=== PATIENT | female | born 1955 | race Caucasian/White ===

== ENCOUNTER → 2018-06-07 09:33 | Outpatient (CLI) | payer OTHER, SELFPAY ==
[2018-06-07 09:45] LABS: Mucous, Urine 0 SEEN /hpf (<or=2+); Red Blood Cells-Urine 0 SEEN /hpf (0-5)
[2018-06-07 11:53] LABS: Color, Urine Yellow (Yellow); Glucose, Dipstick Normal (Normal); Ketone-Dipstick Negative (Negative); Leukocyte Esterase-Dipstick 500 /ul (Negative); Nitrite-Dipstick Negative (Negative); Occult Blood-Urine Negative /ul (Negative); Protein-Dipstick Negative (Negative); Urine Bilirubin Dipstick Negative (Negative); Urine Clarity Clear (Clear); Urine Urobilinogen Normal (Normal)
[2018-06-07 11:58] LABS: Bacteria 2+ /hpf (None Seen); Squamous Epithelial Cells - UA 5-10 SEEN /hpf (5-10); White Blood Cells 10-25 SEEN /hpf (0-5)
[2018-06-07 11:59] LABS: Absolute Lymphocyte Count 2.86 X10^3/ul (0.83-4.51); Absolute Neutrophil Count 5.1 X10^3/uL (2.0-7.7); Basophil# 0.03 X10^3/uL; Basophil% 0.3 % (0-1); Calcium Oxalate Crystals Ur 1+ /hpf (<or=2+); Eosinophils% 2.2 % (0-5); Hemoglobin 15.3 g/dl (12.0-15.0); Lymphocyte # 2.86 X10^3/ul (4.0); Lymphocyte % 31.7 % (19-41); Mean Corpuscular Hgb 30.2 pg (27.0-32.0); Mean Corpuscular Volume 88.8 fL (81-99); Mean Platelet Vol. 9.5 fl (6.2-12.0); Monocyte# 0.85 X10^3/uL; Monocyte% 9.4 % (0-10); Neutrophil # 5.07 X10^3/uL (2.7-7.7); Neutrophil % 56.3 % (47-70); Platelet Count 266 K/mm3 (150-450); RBC Distribution Width CV 12.5 % (11.6-14.6); RBC Distribution Width SD 40.4 fl (35.1-43.9); Red Blood Count 5.07 M/mm3 (4.2-5.4); Renal Epithelial Cells 0-5 SEEN /hpf (0-5)
[2018-06-07 12:00] LABS: POSITIVE COUNT NO; POSITIVE DIFFERENTIAL NO; POSITIVE MORPHOLOGY NO
[2018-06-07 12:15] LABS: Microalbumin,Random Urine 11.1 mg/L (NO RANGE EST.)
[2018-06-07 12:23] LABS: ALB/GLOB Ratio 0.8 RATIO (0.9-2.4); AST(SGOT) 47 U/L (15-37); Alanine Aminotransfer ALT/SGPT 38 U/L (13-56); Albumin, Serum 3.7 g/dL (3.2-5.0); Alkaline Phosphatase 111 U/L (45-117); Anion Gap 9 (5-15); BUN 16 mg/dL (7-18); BUN/Creat Ratio 12.8 RATIO (10-20); Calcium,Total 9.4 mg/dL (8.5-10.1); Chloride 106 mmol/L (98-107); Creatinine, Serum 1.25 mg/dL (0.55-1.02); EST Glomerular Filtration Rate 46 mL/min (>60); Est Glom Filt Rate - Afr Amer 56 mL/min (>60); Free T3 3.3 pg/mL (2.18-3.98); Globulin 4.5 g/dL (2.2-4.2); Glucose 91 mg/dL (74-106); Potassium 3.8 mmol/L (3.5-5.1); Protein, Total 8.2 g/dL (6.4-8.2); Sodium Level 141 mmol/L (136-145); T4 Free Direct 0.97 ng/dL (0.76-1.46); Thyroid Stim Hormone (TSH) 2.13 uIU/mL (0.358-3.74)
[2018-06-08 10:08] LABS: Vitamin D,25 Hydroxy 18.7 ng/mL (29.95-100.01)
[2018-06-10 03:06] LABS: CHOLESTEROL TOTAL 201 mg/dL (100-199); HDL-C 53 mg/dL (>39); HDL-P TOTAL 34.5 umol/L (>=30.5); SMALL LDL-P 615 nmol/L (<=527); TRIGLYCERIDES 151 mg/dL (0-149)
[2018-06-10 07:44] LABS: LDL SIZE 21.1 nm (>20.5); LDL-C 118 mg/dL (0-99); LDL-P 1487 nmol/L (<1000); LP-IR SCORE ** 59 (<=45)
== END ==
PROVIDERS: Family Provider Internal Medicine; PCP Internal Medicine; Visit Provider Internal Medicine
DX: E04.1 Nontoxic single thyroid nodule (principal); Z13.21 Encounter for screening for nutritional disorder; R73.02 Impaired glucose tolerance (oral)
CPT/HCPCS: 36415; 80053; 80061; 81001; 82043; 82306; 82570; 83704; 84439; 84443; 84481; 85025

== ENCOUNTER → 2018-06-12 14:19 | Outpatient (CLI) | payer OTHER, SELFPAY ==
--- NOTE | 2018-06-12 14:24 | CT_ITS ---
STUDY: CT CHEST WITHOUT CONTRAST REASON FOR EXAM: Female, 62 years old. Dilatation of the thoracic aorta. 3. Bilateral mastectomy. Family history of breast cancer without personal history. RADIATION DOSAGE (If Supplied By Facility): CTDIvol = ( 14.7 ) mGy, DLP = ( 514.13 ) mGycm TECHNIQUE: Transaxial imaging was performed without the administration of intravenous contrast material. : Sagittal 2-D MPR. Individualized dose optimization techniques were used for this CT. COMPARISON: 06/03/2016 CT chest. 12/13/2013 CTA chest. FINDINGS: Supraclavicular: A low-density oval circumscribed right-sided thyroid nodule has become more conspicuous as compared to imaging of 2013 and should be further characterized with ultrasound. The thyroid gland is enlarged bilaterally with otherwise mildly heterogeneous nodular features suggesting underlying goiter. Thoracic body wall soft tissues: No acute process. Osseous structures: No acute process. Upper abdomen: There is evidence of hepatic steatosis. Otherwise no acute process. Mediastinum: Normal esophagus, no mass or lymphadenopathy. Aorta: Ascending aorta 4.2 cm, proximal arch 3.95 cm. Pulmonary arteries: Nondilated. Heart: No cardiomegaly. Mild coronary calcifications. No pericardial effusion. Minimal aortic valve calcifications. Lungs: Minimal chronic interstitial changes. Tiny ground glass subpleural nodules are present on the left, the largest measuring about 5 mm. Nonspecific. Follow-up is recommended according to the Fleischner Society Criteria. Airways are normal. CT/Chest without Contrast IMPRESSION: No acute cardiopulmonary process. 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 Not substantially changed compared to imaging of 2014. Right thyroid nodule. Ultrasound characterization is recommended. Electronically Signed: Ruddy Lam, at 16:58 EDT Tel , Service support ,
== END ==
PROVIDERS: Family Provider Internal Medicine; PCP Internal Medicine; Visit Provider Internal Medicine
DX: I77.810 Thoracic aortic ectasia (principal)
CPT/HCPCS: 71250

== ENCOUNTER → 2018-11-02 07:23 | Outpatient (CLI) | payer OTHER, SELFPAY ==
[2018-11-02 10:34] LABS: Absolute Neutrophil Count 4.3 X10^3/uL (2.0-7.7); Basophil# 0.04 X10^3/uL; Basophil% 0.4 % (0-1); Eosinophil# 0.31 X10^3/uL; Eosinophils% 3.4 % (0-5); Hematocrit 43.2 % (37-47); Hemoglobin 14.2 g/dl (12.0-15.0); Lymphocyte % 40.3 % (19-41); Mean Corp Hgb Conc 32.9 g/gl (32-36); Mean Corpuscular Hgb 29.7 pg (27.0-32.0); Mean Corpuscular Volume 90.4 fL (81-99); Mean Platelet Vol. 9.5 fl (6.2-12.0); Monocyte# 0.83 X10^3/uL; Neutrophil % 46.8 % (47-70); Platelet Count 265 K/mm3 (150-450); RBC Distribution Width CV 12.5 % (11.6-14.6); Red Blood Count 4.78 M/mm3 (4.2-5.4); White Blood Count 9.2 K/mm3 (4.4-11.0)
[2018-11-02 10:36] LABS: POSITIVE COUNT NO; POSITIVE DIFFERENTIAL NO; POSITIVE MORPHOLOGY NO
[2018-11-02 11:05] LABS: ALB/GLOB Ratio 0.9 RATIO (0.9-2.4); AST(SGOT) 33 U/L (15-37); Alanine Aminotransfer ALT/SGPT 43 U/L (13-56); Albumin, Serum 3.6 g/dL (3.2-5.0); Alkaline Phosphatase 124 U/L (45-117); Anion Gap 10 (5-15); BUN 15 mg/dL (7-18); BUN/Creat Ratio 11.5 RATIO (10-20); Calcium,Total 9.1 mg/dL (8.5-10.1); Chloride 107 mmol/L (98-107); Cholesterol 160 mg/dL (200); EST Glomerular Filtration Rate 44 mL/min (>60); Est Glom Filt Rate - Afr Amer 53 mL/min (>60); Glucose 83 mg/dL (74-106); High Density Lipoprotein 51 mg/dL; Potassium 3.8 mmol/L (3.5-5.1); Protein, Total 7.6 g/dL (6.4-8.2); Sodium Level 143 mmol/L (136-145); Thyroid Stim Hormone (TSH) 1.97 uIU/mL (0.358-3.74); Triglycerides 175 mg/dL; Very Low Density Lipoprotein 35 mg/dL (5-40)
== END ==
PROVIDERS: Family Provider Family Medicine; PCP Family Medicine; Referring Provider Family Medicine; Visit Provider Family Medicine
DX: E04.1 Nontoxic single thyroid nodule (principal); I10 Essential (primary) hypertension; F31.30 Bipolar disorder, current episode depressed, mild or moderate severity, unspecified
CPT/HCPCS: 36415; 80053; 80061; 84443; 85025

== ENCOUNTER → 2018-11-05 12:32 | Outpatient (CLI) | payer OTHER, SELFPAY ==
--- NOTE | 2018-11-05 12:33 | US_ITS ---
HISTORY: nodules TECHNIQUE: Guzmán scale and color doppler imaging was performed of the thyroid gland. COMPARISON: 02/26/2016 and 09/23/2014 FINDINGS: The thyroid gland is multinodular and remains enlarged with measurements approximately as follows Right lobe 5 x 2.8 x 2.8 cm Left lobe 5.3 x 2.8 x 2.3 cm. Thyroid isthmus 0.4 cm The right thyroid lobe shows 3 nodules with the largest nodule, a complex nodule, measuring 2.6 x 1.1 x 1.4 cm within the upper pole. The midpole of the right thyroid lobe shows a hypoechoic nodule with uniform echotexture measuring 2 x 1.4 x 1.8 cm. This nodule is mildly increased in size compared to previous and is the most suspicious nodule based on its echogenicity. FNA biopsy is recommended. The midpole of the left thyroid lobe shows a 0.6 x 0.7 x 0.6 cm complex nodule. US/Thyroid IMPRESSION: 1. Enlarged multinodular thyroid gland. 2. The midpole of the right thyroid lobe shows a hypoechoic, enlarging nodule. FNA percutaneous needle biopsy is recommended to establish histology. at 0740 Reported and signed by: Tanner Cruz MD Electronically Signed: Tanner Cruz, at 7:39 EST Tel , Service support ,
== END ==
PROVIDERS: Family Provider Internal Medicine; PCP Internal Medicine; Referring Provider Family Medicine; Visit Provider Family Medicine
DX: E04.1 Nontoxic single thyroid nodule (principal)
CPT/HCPCS: 76536

== ENCOUNTER → 2018-12-27 10:57 | Outpatient (CLI) | payer OTHER, SELFPAY ==
--- NOTE | 2018-12-27 11:00 | RAD_ITS ---
STUDY: X-RAY - LEFT KNEE REASON FOR EXAM: Pain. TECHNIQUE: 4 view(s) of the knee. COMPARISON: Radiographs 06/29/2017. FINDINGS: There is osteopenia. Normal visualized distal femur. Normal visualized proximal tibia and fibula. Normal proximal tibiofibular articulation. Normal medial femorotibial compartment. Normal lateral femorotibial compartment. Normal patellofemoral articulation. The soft tissue structures are unremarkable. RAD/Knee 4 or More Views IMPRESSION: Osteopenia. Otherwise, unremarkable x-ray examination of the left knee. Electronically Signed: Tyron Rios MD at 15:44 EST Tel , Service support ,
--- NOTE | 2018-12-27 11:00 | RAD_ITS ---
STUDY: X-RAY - RIGHT KNEE REASON FOR EXAM: Chronic knee pain. TECHNIQUE: 4 view(s) of the knee. COMPARISON: Radiographs 06/29/2017. FINDINGS: There is osteopenia. Normal visualized distal femur. Normal visualized proximal tibia and fibula. Normal proximal tibiofibular articulation. Normal medial femorotibial compartment. Normal lateral femorotibial compartment. Normal patellofemoral articulation. There is a small joint effusion. RAD/Knee 4 or More Views IMPRESSION: Small joint effusion. Osteopenia. Electronically Signed: Tyron Rios MD at 15:48 EST Tel , Service support ,
== END ==
PROVIDERS: Family Provider Internal Medicine; PCP Internal Medicine; Referring Provider Physician Assistant; Visit Provider Physician Assistant
DX: M25.561 Pain in right knee (principal); M25.562 Pain in left knee; M25.469 Effusion, unspecified knee
CPT/HCPCS: 73564

== ENCOUNTER → 2019-05-08 | Outpatient (CLI) | payer OTHER, SELFPAY ==
--- NOTE | 2019-05-08 11:12 | US_ITS ---
STUDY: THYROID ULTRASOUND REASON FOR EXAM: Female, 63 years old. TECHNIQUE: Ultrasound evaluation of the thyroid was performed with real-time and static dorsey-scale imaging. COMPARISON: None. FINDINGS: RIGHT LOBE: The right lobe of the thyroid gland measures 5.6 x 3.2 x 2.7 cm. There are 3 nodules seen in the right lobe. 1 heterogeneous slightly border with intranodular flow it measures 2.4 x 1.7 x 1.3 cm. The other one slight and measures 1.6 x 1.7 x 1.4 cm. The third one measures 1.2 x 1.3 x 0.9 cm also solid in texture. In the last 2 no demonstrated there is perinodular Flow. LEFT LOBE: The left lobe of the thyroid gland measures 5.4 x 2.6 x 2.3 cm with heterogeneous and hypoechoic texture. There is small nodule in the midportion of the left lobe measures 0.9 x 0.8 cm which is solid nodule. I do suggest FNA from the nodules on the right side. ISTHMUS: The isthmus measures 0.5 cm . The regional lymph nodes are normal. US/Thyroid IMPRESSION: Enlarged both lobes of the thyroid with the nodules described above. Electronically Signed: Juan Diego Oliver, at 15:35 EDT Tel , Service support ,
== END | disposition home or self-care (01) ==
LOC: US 11:10
PROVIDERS: Family Provider Family Medicine; PCP Family Medicine; Referring Provider Otolaryngology; Visit Provider Otolaryngology
DX: E04.1 Nontoxic single thyroid nodule (principal)
CPT/HCPCS: 76536

== ENCOUNTER 2019-09-12 20:21 | Emergency (ER) | payer OTHER, SELFPAY ==
[2019-09-12 20:23] VITALS: BP 144/68; PULSE 83; RESP 16; TEMP 37.1; O2SAT 98; BMI 30.9
--- NOTE | 2019-09-12 22:02 | CT_ITS ---
STUDY: CT BRAIN WITHOUT CONTRAST REASON FOR EXAM: Female, 63 years old. Weakness RADIATION DOSAGE (If Supplied By Facility): CTDIvol = ( 44.99 ) mGy, DLP = ( 1625.96 ) mGycm TECHNIQUE: Transaxial CT imaging of the brain was performed without administration of intravenous contrast material. Individualized dose optimization techniques were used for this CT. COMPARISON: No relevant priors. FINDINGS: Normal soft tissue structures. Normal calvarium. Slightly prominent size ventricles. Normal extra-axial spaces for the patient's age. Mild white matter microangiopathic ischemic changes of the cerebral hemispheres. Normal basal ganglia and thalami. Normal brainstem. Normal cerebellum. There is no intracranial hemorrhage. There are no findings of an acute ischemic infarction. Normal visualized paranasal sinuses. CT/Brain/Head without Contrast IMPRESSION: No acute intracranial pathology of the brain. Electronically Signed: Isiah Bowman DO at 23:02 EDT Tel [phone], Service support ,
[2019-09-12 22:35] LABS: Bacteria 0 SEEN /hpf (None Seen); Mucous, Urine 0 SEEN /hpf (<or=2+)
[2019-09-12 22:36] LABS: Color, Urine Yellow (Yellow); Glucose, Dipstick Normal (Normal); Ketone-Dipstick Negative (Negative); Leukocyte Esterase-Dipstick 500 /ul (Negative); Nitrite-Dipstick Negative (Negative); Occult Blood-Urine 25 /ul (Negative); Protein-Dipstick 30 mg/dl (Negative); Urine Bilirubin Dipstick Negative (Negative); Urine Clarity Cloudy (Clear); Urine Urobilinogen Normal (Normal)
[2019-09-12 22:36] LABS: Absolute Lymphocyte Count 2.98 X10^3/uL (0.83-4.51); Absolute Neutrophil Count 5.5 X10^3/uL (2.0-7.7); Basophil# 0.07 X10^3/uL; Basophil% 0.7 % (0-1); Eosinophil# 0.17 X10^3/uL; Eosinophils% 1.8 % (0-5); Hematocrit 45.9 % (37-47); Hemoglobin 14.9 g/dL (12.0-15.0); Lymphocyte # 2.98 X10^3/ul (4.0); Lymphocyte % 31.5 % (19-41); Mean Corp Hgb Conc 32.5 g/dL (32-36); Mean Corpuscular Hgb 29.4 pg (27.0-32.0); Mean Corpuscular Volume 90.7 fL (81-99); Mean Platelet Vol. 9.3 fl (6.2-12.0); Monocyte# 0.69 X10^3/uL; Monocyte% 7.3 % (0-10); NRBC Flagged by Analyzer 0 % (0-5); Neutrophil # 5.51 X10^3/uL (2.7-7.7); Neutrophil % 58.4 % (47-70); Platelet Count 279 K/mm3 (150-450); RBC Distribution Width SD 39.8 fl (35.1-43.9); Red Blood Count 5.06 M/mm3 (4.2-5.4); White Blood Count 9.5 K/mm3 (4.4-11.0)
[2019-09-12 22:50] LABS: Red Blood Cells-Urine 0-5 SEEN /hpf (0-5); White Blood Cells >100 SEEN /hpf (0-5)
[2019-09-12 22:51] LABS: Renal Epithelial Cells 0-5 SEEN /hpf (0-5); Squamous Epithelial Cells - UA 0-5 SEEN /hpf (5-10)
[2019-09-12 22:56] LABS: ALB/GLOB Ratio 0.8 RATIO (0.9-2.4); AST(SGOT) 56 U/L (15-37); Alanine Aminotransfer ALT/SGPT 39 U/L (13-56); Albumin, Serum 3.8 g/dL (3.2-5.0); Alkaline Phosphatase 111 U/L (45-117); Anion Gap 8 (5-15); BUN 8 mg/dL (7-18); BUN/Creat Ratio 6.9 RATIO (10-20); Calcium,Total 9.9 mg/dL (8.5-10.1); Chloride 105 mmol/L (98-107); Creatinine, Serum 1.16 mg/dL (0.55-1.02); EST Glomerular Filtration Rate 50 mL/min (>60); Est Glom Filt Rate - Afr Amer 61 mL/min (>60); Estimated Creatinine Clearance 42.87 ml/min; Globulin 4.5 g/dL (2.2-4.2); Glucose 91 mg/dL (74-106); Potassium 3.9 mmol/L (3.5-5.1); Protein, Total 8.3 g/dL (6.4-8.2); Sodium Level 140 mmol/L (136-145)
--- NOTE | 2019-09-12 23:46 | ED.RN ---
PT AMBULATES TWICE TO BATHROOM WITH SPOUSE AND 1 RN, UNSTEADY GAIT NOTED.
--- NOTE | 2019-09-12 23:52 | ED.VISSUMM ---
- ER Visit Summary Date of Service: 09/12/19 Chief Complaint: Fall History of Present Illness: The patient is a 63 F who presents with a fall that occurred today. Patient states she stood up and her legs gave out on her. Patient states she fell forward. Patient states she feels like she is paralyzed from the chest down. Patient states she is having some cramping in her legs. Patient states that she has tremors in her lower extremities. Patient admits to some numbness in her lower extremities. Patient states she was able to get up after the fall and hold onto her and was able to ambulate to the car. states that the patient was started on a new medication recently for her tremors. noted that in the side effect profile it may cause weakness. Physical Examination: Vital signs are stable. Patient is afebrile. Patient is in no acute distress. Cranial nerves II through XII are intact. Strength is 5/5 bilaterally in the upper extremities. There is poor effort with hip flexion and knee extension in the lower extremities. Patient is able to plantarflex and dorsiflex. There are no sensory deficits noted. Oral mucosa is pink and moist. Neck is supple. Trachea is midline. There is no JVD noted. Heart was regular rate and rhythm. Lungs are clear and equal bilaterally. Abdomen is soft and nontender. Test Results: CT scan of the brain was obtained and was negative. CBC was normal. Creatinine was slightly elevated at 1.16. Urinalysis shows leukocyte esterase of 500 with greater than 100 white blood cells. Emergency Department Course and Treatment: Patient was able to ambulate to the bathroom here in the emergency department. Patient was given a dose of Bactrim here. Patient was given a prescription for Bactrim. Patient was advised that the weakness may be a side effect of her medication as well. Patient was instructed to follow-up with her primary care physician in 3 to 5 days for further evaluation. Patient and her understood and were agreeable with the plan. All questions were answered. Disposition: Discharge home Impression: 1. Urinary tract infection 2. Lower extremity weakness This note was generated with [employer] software. It may contain incorrect words, spelling, and punctuation that were not noted in review of the chart prior to signing ED Disposition - Plan for ED Patient: Disposition: Home or Assisted Living Diagnosis: Urinary tract infection Instructions: Bladder Infection, Female (Adult) Prescriptions: Smz/Tmp Ds [Bactrim Ds] 1 tab PO BID #6 tab Prescription Printed Referrals: Dorene Whittaker MD [Primary Care Provider] - 3-5 Days Additional Instructions: Use your walker to help you get around. Take your antibiotic as prescribed until gone.
[2019-09-13 00:27] VITALS: BP 140/86; PULSE 73; RESP 16; O2SAT 97
[2019-09-13] MEDS: Smz/Tmp Ds Tablet 1 TABLET PO (00:29)
== END 2019-09-13 00:38 | disposition home or self-care (01) ==
PROVIDERS: Emergency Provider Emergency Medicine; Family Provider Family Medicine; PCP Family Medicine
DX: N39.0 Urinary tract infection, site not specified (principal); R29.898 Other symptoms and signs involving the musculoskeletal system; H53.8 Other visual disturbances; R06.00 Dyspnea, unspecified; M54.2 Cervicalgia; R51 Headache; R20.2 Paresthesia of skin; W19.XXXA Unspecified fall, initial encounter; Y93.9 Activity, unspecified; Y92.9 Unspecified place or not applicable; E66.9 Obesity, unspecified; F32.9 Major depressive disorder, single episode, unspecified; M79.7 Fibromyalgia; Z79.899 Other long term (current) drug therapy
CPT/HCPCS: 70450; 80053; 81001; 85025; 99283; A4216

== ENCOUNTER → 2019-10-17 07:58 | Outpatient (CLI) | payer OTHER, SELFPAY ==
--- NOTE | 2019-10-17 08:36 | RAD_ITS ---
STUDY: X-RAY CHEST REASON FOR EXAM: Female, 64 years old. Cough TECHNIQUE: Two view of the chest were performed COMPARISON: 12 June 2018 FINDINGS: Lungs are clear. There is no pneumothorax, pulmonary edema, pleural effusions or cardiomegaly. Osseous structures are intact. There is no gas under the diaphragms. [ There is lower cervical ACDF.] RAD/Chest PA and Lateral IMPRESSION: 1. No acute cardiorespiratory disease. [ ] Electronically Signed: Merlin Ramos, at 18:56 EST Tel , Service support ,
[2019-10-17 10:24] LABS: Absolute Lymphocyte Count 3.46 X10^3/uL (0.83-4.51); Absolute Neutrophil Count 5.6 X10^3/uL (2.0-7.7); Basophil# 0.05 X10^3/uL; Basophil% 0.5 % (0-1); Eosinophil# 0.36 X10^3/uL; Eosinophils% 3.5 % (0-5); Hematocrit 44.2 % (37-47); Hemoglobin 14.3 g/dL (12.0-15.0); Lymphocyte # 3.46 X10^3/ul (4.0); Lymphocyte % 33.7 % (19-41); Mean Corp Hgb Conc 32.4 g/dL (32-36); Mean Corpuscular Hgb 29.1 pg (27.0-32.0); Mean Platelet Vol. 9.5 fl (6.2-12.0); Monocyte# 0.73 X10^3/uL; Monocyte% 7.1 % (0-10); NRBC Flagged by Analyzer 0 % (0-5); Neutrophil # 5.63 X10^3/uL (2.7-7.7); Neutrophil % 54.8 % (47-70); Platelet Count 274 K/mm3 (150-450); RBC Distribution Width CV 12.1 % (11.6-14.6); RBC Distribution Width SD 39.8 fl (35.1-43.9); Red Blood Count 4.91 M/mm3 (4.2-5.4); White Blood Count 10.3 K/mm3 (4.4-11.0)
[2019-10-17 10:42] LABS: Hemoglobin A1c 5.5 % (4.2-6.3)
[2019-10-17 11:02] LABS: ALB/GLOB Ratio 0.8 RATIO (0.9-2.4); AST(SGOT) 38 U/L (15-37); Alanine Aminotransfer ALT/SGPT 35 U/L (13-56); Albumin, Serum 3.6 g/dL (3.2-5.0); Alkaline Phosphatase 114 U/L (45-117); Anion Gap 7 (5-15); BUN 11 mg/dL (7-18); BUN/Creat Ratio 9.6 RATIO (10-20); Calcium,Total 9.5 mg/dL (8.5-10.1); Chloride 108 mmol/L (98-107); Cholesterol 159 mg/dL (200); Creatinine, Serum 1.14 mg/dL (0.55-1.02); EST Glomerular Filtration Rate 51 mL/min (>60); Est Glom Filt Rate - Afr Amer 62 mL/min (>60); Globulin 4.5 g/dL (2.2-4.2); Glucose 100 mg/dL (74-106); High Density Lipoprotein 46 mg/dL; Potassium 3.8 mmol/L (3.5-5.1); Protein, Total 8.1 g/dL (6.4-8.2); Sodium Level 141 mmol/L (136-145); Thyroid Stim Hormone (TSH) 2.09 uIU/mL (0.358-3.74); Triglycerides 111 mg/dL; Very Low Density Lipoprotein 22 mg/dL (5-40)
== END ==
PROVIDERS: Family Provider Family Medicine; PCP Family Medicine; Referring Provider Family Medicine; Visit Provider Family Medicine
DX: Z00.01 Encounter for general adult medical examination with abnormal findings (principal); R05 Cough
CPT/HCPCS: 36415; 71046; 80053; 80061; 83036; 84443; 85025

== ENCOUNTER → 2019-11-08 09:41 | Outpatient (CLI) | payer OTHER, SELFPAY ==
[2019-11-12 03:07] LABS: Age Gdln ACOG Testing 30-65 (.)
[2019-11-12 15:46] LABS: HPV APTIMA, High Risk Negative (Negative); HPV Reflexed? YES, CHARGE PATIENT
== END ==
PROVIDERS: Family Provider Family Medicine; PCP Family Medicine; Visit Provider Family Medicine
DX: Z12.4 Encounter for screening for malignant neoplasm of cervix (principal)
CPT/HCPCS: 87624; 88175; G0145

== ENCOUNTER → 2020-05-12 16:16 | Outpatient (CLI) | payer OTHER, SELFPAY ==
--- NOTE | 2020-05-12 16:20 | US_ITS ---
STUDY: THYROID ULTRASOUND REASON FOR EXAM: Female, 64 years old. NODULES TECHNIQUE: Ultrasound evaluation of the thyroid was performed with real-time and static dorsey-scale imaging. COMPARISON: May 08, 2019 and September 23, 2014. FINDINGS: RIGHT LOBE: The right lobe of the thyroid gland measures 5.8 x 3.1 x 2.7 cm. There is a homogeneous echotexture. There are 3 nodules, mildly increased in size compared to prior exams, measuring 2.5 x 1.8 and 2.2 x 2.1 and 2.1 x 1.9 cm . LEFT LOBE: The left lobe of the thyroid gland measures 5.8 x 2.6 x 2.4 cm. There is a homogeneous echotexture. There is 0.8 x 0.7 cm nodule. ISTHMUS: The isthmus measures 0.7 cm. The regional lymph nodes are normal. US/Thyroid IMPRESSION: Multinodular goiter, with increased size of right-sided nodules. Electronically Signed: David Carter MD at 17:40 EDT , Service support ,
== END ==
PROVIDERS: PCP Family Medicine; Referring Provider Otolaryngology; Visit Provider Otolaryngology
DX: E04.1 Nontoxic single thyroid nodule (principal)
CPT/HCPCS: 76536

== ENCOUNTER → 2020-06-01 13:08 | Outpatient (CLI) | payer OTHER, SELFPAY ==
--- NOTE | 2020-06-01 13:10 | CT_ITS ---
STUDY: CT BRAIN WITHOUT CONTRAST REASON FOR EXAM: Female, 64 years old. PT STATED TREMORS, UNCONTROLLED SHAKING, MEMORY LOSS RADIATION DOSAGE (If Supplied By Facility): CTDIvol = ( 44.99 ) mGy, DLP = ( 762.36 ) mGycm TECHNIQUE: Transaxial CT imaging of the brain was performed without administration of intravenous contrast material. Individualized dose optimization techniques were used for this CT. COMPARISON: 09/12/2019 FINDINGS: Normal soft tissue structures. Normal calvarium. Stable prominent ventricular size. Normal white matter tracts of the cerebral hemispheres. Normal basal ganglia and thalami. Normal brainstem. Normal cerebellum. There is no intracranial hemorrhage. There are no findings of an acute ischemic infarction. Normal visualized paranasal sinuses. CT/Brain/Head without Contrast IMPRESSION: Chronic involutional changes of the brain. No acute hemorrhage or significant interval change Electronically Signed: Mathew Salas MD at 13:47 EDT , Service support ,
== END ==
PROVIDERS: PCP Family Medicine; Referring Provider Psychiatry & Neurology Neurology; Visit Provider Psychiatry & Neurology Neurology
DX: R41.3 Other amnesia (principal)
CPT/HCPCS: 70450

== ENCOUNTER 2020-07-13 14:49 | Inpatient (IN) | payer OTHER, SELFPAY ==
[2020-07-13] VITALS (29 sets, daily range): BP systolic 123–175; BP diastolic 71–108; PULSE 67–91; RESP 12–20; TEMP 36.8–37.1; O2SAT 92–100; BMI 32.2; BMI 31.6; BMI 31.7
--- NOTE | 2020-07-13 14:56 | EKG12_ITS ---
Test Reason : STROKE Blood Pressure : / mmHG Vent. Rate : 081 BPM Atrial Rate : 081 BPM P-R Int : 230 ms QRS Dur : 080 ms QT Int : 376 ms P-R-T Axes : 032 011 006 degrees QTc Int : 436 ms Sinus rhythm with 1st degree A-V block Inferior infarct , age undetermined, cannot be excluded Abnormal ECG Confirmed by CARLOS KATZ, VALENTINE ([id number]), editorial director KAE SANCHEZ ([id number]) on 07/16/2020 11:19:32 AM Referred By: MARIPOSA Confirmed By:VALENTINE GONZALEZ MD
--- NOTE | 2020-07-13 14:56 | CT_ITS ---
STUDY: CT BRAIN WITHOUT CONTRAST REASON FOR EXAM: Female, 64 years old. STROKE RADIATION DOSAGE (If Supplied By Facility): CTDIvol = ( 44.99 ) mGy, DLP = ( 796.11 ) mGycm TECHNIQUE: Transaxial CT imaging of the brain was performed without administration of intravenous contrast material. Individualized dose optimization techniques were used for this CT. COMPARISON: Comparison is made with prior study dated 06/01/2020. FINDINGS: Normal soft tissue structures. There is hyperostosis frontalis internus. There is mild cerebral atrophy with widening of the extra-axial spaces and ventricular dilatation. Normal white matter tracts of the cerebral hemispheres. Normal basal ganglia and thalami. Normal brainstem. Normal cerebellum. There is no intracranial hemorrhage. There are no findings of an acute ischemic infarction. Atherosclerotic plaque formation of the cavernous portions of the internal carotid arteries bilaterally. Normal visualized paranasal sinuses. CT/Brain/Head without Contrast IMPRESSION: Chronic involutional changes of the brain. N.B. : The above information has been verbally conveyed by Eros Chase to Olivre Quintanilla on 07/13/2020 15:14:02 (ET). Electronically Signed: Eros Chase, at 15:15 EDT , Service support ,
--- NOTE | 2020-07-13 14:57 | CT_ITS ---
STUDY: CTA HEAD AND NECK WITH CONTRAST REASON FOR EXAM: Female, 64 years old. CVA RADIATION DOSAGE (If Supplied By Facility): CTDIvol = ( 21.93 ) mGy, DLP = ( 703.80 ) mGycm TECHNIQUE: CT angiography was performed with a multi-detector CT scanner. Data acquisition was obtained from the skull base through the vertex following intravenous administration of IV 100mL [id number]-[id number]. MIP images were reconstructed from the axial data set. Post-processing of the angiographic images was performed, with multiplanar reformation and 3D reconstruction. Individualized dose optimization techniques were used for this CT. COMPARISON: No relevant priors. FINDINGS: Normal bilateral petrous carotid arteries. Normal right cavernous carotid artery with a normal supraclinoid bifurcation. Normal left cavernous carotid artery with a normal supraclinoid bifurcation. There is hypoplastic development of the right A1 segment of the anterior cerebral arteries with an atretic but intact artery. Normal left A1 segments of the anterior cerebral artery. Normal intact anterior communicating artery (ACOM). Normal bilateral A2 segments of the anterior cerebral arteries. Normal right M1 and M2 segments of the middle cerebral arteries, with a normal M1 bifurcation. Normal left M1 and M2 segments of the middle cerebral arteries, with a normal M1 bifurcation. Normal right posterior communicating artery (PCOM). Normal left posterior communicating artery (PCOM). Normal bilateral vertebral arteries. Normal basilar artery with a normal basilar bifurcation. The visualized bilateral superior cerebellar (SCA) arteries are normal. Normal bilateral P1, P2 and visualized P3 segments of the posterior cerebral arteries. There is no demonstrated aneurysm of the three affiliated of Kelly. There is no demonstrated abnormality of the visualized brain. Diffuse enlargement of both lobes of the thyroid gland with heterogeneous dense nodule in the right lobe. AORTIC ARCH: There is atherosclerotic calcific plaque formation of the aortic arch and great vessels arising from the aortic arch, without a hemodynamically significant stenosis. There is a normal origin of the brachiocephalic, left common carotid, and left subclavian arteries. RIGHT CAROTID ARTERIES: Normal right common carotid artery (CCA). Normal right common carotid bulb. Normal origin of the right internal carotid (ICA) artery without a hemodynamically significant stenosis. Normal visualized cervical portion of the right internal carotid artery. Normal origin of the right external carotid artery (ECA). LEFT CAROTID ARTERIES: Normal left common carotid artery (CCA). Normal left common carotid bulb. Normal origin of the left internal carotid (ICA) artery without a hemodynamically significant stenosis. Normal visualized cervical portion of the left internal carotid artery. Normal origin of the left external carotid artery (ECA). VERTEBRAL ARTERIES: Normal bilateral vertebral arteries. CT/CTA Head AND Neck W/ Contrast IMPRESSION: No significant stenosis is seen. 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 Electronically Signed: Eros Chase, at 15:24 EDT , Service support ,
[2020-07-13 15:01] LABS: Bedside Glucose 125 mg/dL (70-110)
--- NOTE | 2020-07-13 15:02 | CM.ED ---
Social Work Responding to stroke alert. Patient spouse, Filemon present. Support provided. Will continue to follow as needed. Marques Thomas MSW, [facility]
--- NOTE | 2020-07-13 15:15 | ED.VIS.STROK ---
History of Present Illness Chief Complaint: Neuro S/Sx Informant: Patient, Family Onset: Hours Context: Sudden Onset Timing: Continuous Quality and Location: Left Arm Parasthesia, Left Arm Weakness, Left Leg Weakness, Slurred Speech, Difficulty with Ambulation Onset: 12 noon Current Severity: Moderate Maximum Severity: Moderate Worsened by: Nothing Relieved by: Nothing Associated Symptoms: Negative for: Headache, Nausea, Vomiting, Chest Pain Narrative: Patient is 64-year-old woman with history of hypertension who presents with strokelike symptoms that started at 12 noon. Patient symptoms are on the left side. She also reports altered vision. Prior similar symptoms: No Recent Illness/Hospitalization: No - Past Medical History (1) Fibromyalgia Status: Chronic (2) Hyperlipidemia Status: Chronic (3) Hypertension Status: Chronic Past Medical History - Allergies and Home Meds Allergies/Adverse Reactions: Allergies buprenorphine HCl [From Suboxone] Allergy (Verified 07/13/20 15:13) Anaphylaxis erythromycin base [Erythromycin Base] Allergy (Verified 07/13/20 15:13) Other naloxone HCl [From Suboxone] Allergy (Verified 07/13/20 15:13) Anaphylaxis Primary Care Physician: Dorene Whittaker MD [Primary Care Provider] - Prior records reviewed: Yes Surgical History: mastectomy, - - Neck surgery. Lives: Spouse/ Significant Other Smoking Status: Never smoker Alcohol: None Drugs: None Review of Systems General: Denies: Chills, Fever, Malaise Eyes: Reports: Visual changes - bilaterally, - - Partial loss of vision Cardiovascular: Denies: Chest pain, Palpitations Respiratory: Denies: Dyspnea, Cough, Dyspnea on exertion Gastrointestinal: Denies: Abdominal pain, Nausea, Vomiting, Diarrhea Genitourinary: Denies: Dysuria, Hematuria Musculoskeletal: Denies: Myalgias, Arthralgias, Neck pain, Back pain Skin: Denies: Rash, Wounds Neurological: Reports: Weakness, Parasthesia, Numbness. Denies: Headache Hematologic: Denies: Easy bruising, Easy bleeding Allergy: Denies: Uticaria, Swelling of the mouth STROKE Vital Signs/Narrative: Vital Signs Temp Pulse Resp BP Pulse Ox 07/13/20 14:56 98.4 F 79 18 143/108 H 98 Inital Vital Signs reviewed: Yes - NIHSS Initial 1a Level of Consciousness: 0 1b LOC Questions (Score 2 if aphasic/stupor): 0 1c LOC Commands (Only score 1st attempt): 0 2 Best Gaze (If aphasic, use reflexive mvmts.): 0 3 Visual: 2 4 Facial Palsy: 1 5 Motor Arm Right (UN = amputation/fusion): 0 5 Motor Arm Left: 3 6 Motor Leg Right: 0 6 Motor Leg Left: 1 7 Limb ataxia (Only + if out of proportion): 0 8 Sensory (Aphasia/stupor=0 or 1, coma=2): 1 9 Best Language: 0 10 Dysarthria (mute, coma=2, intubated=UN): 1 11 Extinction and Inattention (only scored if +): 0 Total Score: 9 Extremities: Nontender, No edema Skin: Normal color, No rash Neurological: Alert, Oriented x3. Negative for: Cranial nerves II-XII grossly intact, Normal Strength, Normal Sensation, Normal Gait Psychological: Normal affect Diagnostic/Tx/Re-eval Impressions Brain CT 07/13/20 14:56 IMPRESSION: Chronic involutional changes of the brain. N.B. : The above information has been verbally conveyed by Eros Chase to [facility] on 07/13/2020 15:14:02 (ET). Electronically Signed: Eros Chase, at 15:15 EDT , Service support , ADDENDUM: 07/13/20 1522 IMPRESSION: Chronic involutional changes of the brain. N.B. : The above information has been verbally conveyed by Eros Chase to [facility] on 07/13/2020 15:14:02 (ET). Electronically Signed: Eros Chase, at 15:15 EDT , Service support , Head/Neck CTA 07/13/20 14:57 IMPRESSION: No significant stenosis is seen. 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 Electronically Signed: Eros Chase at 15:24 EDT , Service support , 07/13/20 14:56 Brain/Head without Contrast [CT] Stat Chest 1 View [RAD] Stat 07/13/20 14:57 CTA Head AND Neck W/ Contrast [CT] Stat Laboratory Results 07/13/20 07/13/20 14:55 15:15 WBC 8.4 RBC 4.13 L Hgb 12.3 Hct 37.6 MCV 91.0 MCH 29.8 MCHC 32.7 RDW Std Deviation 41.6 RDW Coeff of Mckay 12.6 Plt Count 208 MPV 9.3 Immature Gran % (Auto) 0.400 Neut % (Auto) 58.1 Lymph % (Auto) 29.2 Shoshone % (Auto) 8.4 Eos % (Auto) 3.5 Baso % (Auto) 0.4 Absolute Neuts (auto) 4.9 Absolute Lymphs (auto) 2.45 Nucleated RBC % 0 POC Glucose 125 H The neurologist from [facility] recommended TPA. Patient was informed of risk benefits. tPA was ordered. Since there is no evidence of clot hospitalist was paged for admission to ICU - Medical Decision Making Stroke Team Activated: Yes Reviewed Inclusion/Exclusion criteria: Yes Was Patient considered for Endovascular Intervention?: No IV Alteplase (t-PA) Administered: Yes No contraindications for IV Alteplase (t-PA) administration.: Yes - No contraindications Alteplase (t-PA) risks, benefits, alternative discussed: Yes Not given: Patient refusal: No - Patient consented Presents with strokelike symptoms that started approximately 3 hours prior to arrival. Stroke order set with CT a of the head neck were initially ordered. Patient has no contraindication to thrombolytics. Critical care time (excluding procedures): 30-74 minutes - Critical care time 33 minutes: included history, physical examination, discussion with consultants, review of criteria for TPA, explaining risk benefits to family, discussion with hospitalist for admission ED Disposition - Plan for ED Patient: Disposition: Acute Care Hospital [facility] Diagnosis: Acute ischemic stroke Referrals: Dorene Whittaker MD [Primary Care Provider] -
[2020-07-13 15:23] LABS: Absolute Lymphocyte Count 2.45 X10^3/uL (0.83-4.51); Absolute Neutrophil Count 4.9 X10^3/uL (2.0-7.7); Basophil# 0.03 X10^3/uL; Basophil% 0.4 % (0-1); Eosinophil# 0.29 X10^3/uL; Eosinophils% 3.5 % (0-5); Hematocrit 37.6 % (37-47); Hemoglobin 12.3 g/dL (12.0-15.0); Lymphocyte # 2.45 X10^3/ul (4.0); Lymphocyte % 29.2 % (19-41); Mean Corp Hgb Conc 32.7 g/dL (32-36); Mean Corpuscular Hgb 29.8 pg (27.0-32.0); Mean Platelet Vol. 9.3 fl (6.2-12.0); Monocyte% 8.4 % (0-10); NRBC Flagged by Analyzer 0 % (0-5); Neutrophil # 4.88 X10^3/uL (2.7-7.7); Neutrophil % 58.1 % (47-70); Platelet Count 208 K/mm3 (150-450); RBC Distribution Width CV 12.6 % (11.6-14.6); RBC Distribution Width SD 41.6 fl (35.1-43.9); Red Blood Count 4.13 M/mm3 (4.2-5.4); White Blood Count 8.4 K/mm3 (4.4-11.0)
[2020-07-13 15:35] LABS: International Normalized Ratio 1.1
[2020-07-13 15:36] LABS: Partial Thromboplast Time 27.4 Seconds (24.1-36.2)
--- NOTE | 2020-07-13 15:38 | CHAPLAIN ---
Type of Pastoral Visit ___ Initial Visit ___ Follow-up Visit ___ On-call Visit ___ General Patient Visit ___ Spiritual Assessment ___ Family Conference ___ Bereavement _x__ Rapid Response ___ Code Blue ___ Other (describe below) Pastoral Care Referral From ___ Patient ___ Family ___ Nurse ___ Physician ___ Spearer ___ Project Superintendent _x__ Other (describe below) Sacrament/Intervention ___ Active listening ___ Anointing ___ Yarsani ___ Bereavement ___ Communion ___ Janine exploration ___ ___ Life review ___ Prayer ___ Reconciliation ___ Sacrament of Sick _x__ Supportive presence ___ Wedding _x_ Other (describe below) Pastoral Comments met with spouse to offer support as pt was taken for testing; spouse appears appropriate and able to respond to event; will return to check on situation;
[2020-07-13 15:52] LABS: Anion Gap 4 (5-15); BUN 10 mg/dL (7-18); BUN/Creat Ratio 10.1 RATIO (10-20); Calcium,Total 8.6 mg/dL (8.5-10.1); Chloride 104 mmol/L (98-107); Creatinine, Serum 0.99 mg/dL (0.55-1.02); EST Glomerular Filtration Rate 60 mL/min (>60); Est Glom Filt Rate - Afr Amer 73 mL/min (>60); Estimated Creatinine Clearance 49.57 ml/min; Glucose 115 mg/dL (74-106); Potassium 3.8 mmol/L (3.5-5.1); Sodium Level 137 mmol/L (136-145)
[2020-07-13] MEDS: 0.9% Normal Saline 1,000 ML 100 ML IV (15:56)
--- NOTE | 2020-07-13 16:00 | RAD_ITS ---
STUDY: X-RAY CHEST REASON FOR EXAM: Female, 64 years old. stroke protocol TECHNIQUE: Single AP portable view of the chest. COMPARISON: October 17, 2019 FINDINGS: There are monitoring devices. The lungs are clear and expanded. There is no demonstrated pleural abnormality. There is borderline cardiomegaly. Normal mediastinum and tomi. Normal visualized pulmonary arteries. Normal visualized aortic arch and descending thoracic aorta. There is demineralization of the osseous structures. There are degenerative changes of the thoracic spine. There is postoperative change of the cervical spine. Normal visualized ribs, clavicles, and shoulders. There is no demonstrated abnormality of the visualized soft tissue structures of the upper abdomen. RAD/Chest 1 View IMPRESSION: Degenerative changes, as described above. No demonstrated acute cardiopulmonary process. Electronically Signed: David Carter MD at 16:16 EDT , Service support ,
--- NOTE | 2020-07-13 16:05 | HP.PCM_ITS ---
Problem List (1) Acute ischemic stroke Status: Acute (2) Fibromyalgia Status: Chronic (3) Atypical chest pain Status: Acute (4) Anxiety Status: Chronic (5) Chronic back pain Status: Chronic (6) Hyperlipidemia Status: Chronic (7) Hypertension Status: Chronic History of Present Illness Date of Admission: 07/13/20 Chief Complaint: dysarthria. left sided weakness. The patient is a 64 year old F who was in normal state of health and then today around noon, experienced dysarthria as well as left-sided weakness. Presented to the emergency room and was evaluated. Patient was evaluated by the [facility] stroke team and recommended TPA, to which patient is receiving at this time. Patient has never had a stroke previously. [] Past Medical History Past Medical History (Chronic Problems): Chronic Problems Fibromyalgia (Chronic) Anxiety (Chronic) Chronic back pain (Chronic) Hyperlipidemia (Chronic) Hypertension (Chronic) Allergies buprenorphine HCl [From Suboxone] Allergy (Verified 07/13/20 15:13) Anaphylaxis erythromycin base [Erythromycin Base] Allergy (Verified 07/13/20 15:13) Other naloxone HCl [From Suboxone] Allergy (Verified 07/13/20 15:13) Anaphylaxis Home Medications: Ambulatory Orders Medication Instructions Recorded Clonazepam [Klonopin] 0.5 mg PO BID 12/13/13 Lamotrigine [Lamictal] 150 mg PO DINNER 12/13/13 Lamotrigine [Lamictal] 200 mg PO DAILY 12/13/13 Nebivolol HCl [Bystolic (Beta 5 mg PO DAILY 12/13/13 Mac)] Orphenadrine [Norflex] 100 mg ORAL QHS 12/13/13 Selenium Sulfide 180 ml TP PRN 12/13/13 Simvastatin [Zocor] 40 mg PO QHS 12/13/13 buPROPion SR [Wellbutrin SR (150mg 150 mg PO BID 12/13/13 tablets)] Clonazepam [Klonopin] 1 mg PO QHS 04/01/14 Smz/Tmp Ds [Bactrim Ds] 1 tab PO BID #6 tab 09/12/19 Surgical History: mastectomy, - - Neck surgery. Psychiatric History: Anxiety OTOLARYNGOLOGIST History: No pertinent OTOLARYNGOLOGIST history Lives: Spouse/ Significant Other Smoking Status: Never smoker Alcohol: None Drugs: None - *Family History Maternal History Items: - - no CVA Review of Systems Constitutional: Denies: Anorexia, Chills, Fever Eyes: Denies: Blurred vision, Drainage HEENT: Denies: Head Aches, Sinus Congestion, Sinus Drainage Cardiovascular: Denies: Chest Pain, Palpitations Respiratory: Denies: Cough, Shortness of breath at rest, Sputum production Gastrointestinal: Denies: Abdominal Pain, Nausea, Vomiting Genitourinary: Denies: Dysuria Musculoskeletal: Denies: Joint Pain, Joint Tenderness Skin: Denies: Rash, Wounds Neurological: Reports: Blurred vision, Focal weakness. Denies: Double vision Psychiatric: Denies: Anxiety, Depression Hematologic/ Lymphatic: Denies: Easy Bruising, Easy Bleeding, Hx of blood clot Comment: All review of systems were negative except as mentioned above in the history of present illness and the other review of systems. VTE Information - Inpt Only VTE Present on Admission: No VTE Mechan Device Prophylaxis: None VTE Pharm Prophylaxis ordered?: No Reason prophylaxis not ordered:: Medical Contraindication Patient Problems: Active and Suspected Problems Acute ischemic stroke (Acute) - Physical Exam Vitals/I&O's: Vital Signs Temp Pulse Resp BP Pulse Ox 37.1 C 83 18 161/85 H 95 07/13/20 15:45 07/13/20 15:45 07/13/20 15:50 07/13/20 15:45 07/13/20 15:45 Oxygen Delivery Method Room Air Weight: 85.2 kg Body Mass Index (BMI) 32.2 Finger Stick Blood Glucose 125 General: Alert, Oriented x3, Cooperative HEENT: Atraumatic, PERRLA, EOMI, - - Left facial droop Oral: Moist Mucosa, No Gingival or Mucosal Lesions/ Ulcerations Neck: Negative Carotid Bruits, No Nodes, Thyroid Normal Size and Texture Lungs: Clear to auscultation, Normal air movement Cardiovascular: Regular rate, No murmurs Abdomen: Bowel Sounds Present, Soft, Non Tender Extremities: No edema, Capillary Refill Less than 3 Seconds Skin: No rashes, No breakdown Musculoskeletal: No Tenderness to Palpation of Joints or Extremities Neurological: - - Muscle strength 4 out of 5 in the right upper and right lower extremity. Muscle strength 1 out of 5 in the left upper extremity. Sensation intact on the right side but diminished on the left. Psych/Mental Status: Appropriate, Anxious - Tearful Laboratory Results 07/13/20 14:55: POC Glucose 125 H 07/13/20 15:15: WBC 8.4, RBC 4.13 L, Hgb 12.3, Hct 37.6, MCV 91.0, MCH 29.8, MCHC 32.7, RDW Std Deviation 41.6, RDW Coeff of Mckay 12.6, Plt Count 208, MPV 9.3, Immature Gran % (Auto) 0.400, Neut % (Auto) 58.1, Lymph % (Auto) 29.2, [place] % (Auto) 8.4, Eos % (Auto) 3.5, Baso % (Auto) 0.4, Absolute Neuts (auto) 4.9, Absolute Lymphs (auto) 2.45, Nucleated RBC % 0 07/13/20 15:15: PT 14.0, INR 1.1, APTT 27.4 07/13/20 15:15: Sodium 137, Potassium 3.8, Chloride 104, Carbon Dioxide 29.0, Anion Gap 4 L, BUN 10, Creatinine 0.99, Estim Creat Clear Calc 49.57, Est GFR (MDRD) Af Amer 73, Est GFR (MDRD) Non-Af 60, BUN/Creatinine Ratio 10.1, Glucose 115 H, Calcium 8.6, Troponin I < 0.015 EKG reviewed and showed normal sinus rhythm with no acute changes. Clinical Impression(s) from Imaging Studies Brain CT 07/13/20 14:56 IMPRESSION: Chronic involutional changes of the brain. N.B. : The above information has been verbally conveyed by Eros Chase to [facility] on 07/13/2020 15:14:02 (ET). Electronically Signed: Eros Chase, at 15:15 EDT , Service support , ADDENDUM: 07/13/20 1522 IMPRESSION: Chronic involutional changes of the brain. N.B. : The above information has been verbally conveyed by Eros Chase to [facility] on 07/13/2020 15:14:02 (ET). Electronically Signed: Eros Chase, at 15:15 EDT , Service support , Head/Neck CTA 07/13/20 14:57 IMPRESSION: No significant stenosis is seen. 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 Electronically Signed: Eros Chase, at 15:24 EDT , Service support , Current Medications Acetaminophen (Tylenol) 650 mg PO .X1 PRN PRN Reason: Temp > 99.6 F Diphenhydramine HCl (Benadryl) 50 mg IV .X1 PRN PRN Reason: Allergic Reaction Stop: 07/15/20 15:24 Epinephrine HCl () 0.3 mg IM .X1 PRN PRN Reason: Allergic Reaction Stop: 07/15/20 15:24 Sodium Chloride () 1,000 mls @ 100 mls/hr IV .Q10H DRAKE Last Admin: 07/13/20 15:56 Dose: 100 mls/hr Documented by: Famotidine 20 mg/ Sodium (Chloride) 10 mls @ 300 mls/hr IV .X1 PRN PRN Reason: Allergic Reaction Stop: 07/15/20 15:23 Nicardipine/Dextrose (Cardene-Dex 20 Mg/200 Ml Soln) 20 mg in 200 mls @ 50 mls/hr IV .Q4H PRN; Protocol PRN Reason: See Instructions Alteplase, Recombinant 68.9 mg (/ N/A) 68.9 mls @ 68.9 mls/hr IV X1 ONE Stop: 07/13/20 16:29 Last Admin: 07/13/20 15:38 Dose: 68.9 mls/hr Documented by: Labetalol HCl (Trandate) 20 mg IV X1 PRN PRN Reason: BLOOD PRESSURE Labetalol HCl (Trandate) 20 mg IV X1 PRN; Protocol PRN Reason: BLOOD PRESSURE Methylprednisolone (Solu-Medrol) 125 mg IV .X1 PRN PRN Reason: Allergic Reaction Stop: 07/15/20 15:24 Assessment/Plan All Active Problems Acute ischemic stroke (Acute) Atypical chest pain (Acute) 1. Acute stroke: Patient presents with dysarthria as well as left-sided weakness and numbness. Patient was evaluated by the [facility] stroke team and TPA has been recommended and has already been initiated. Patient will be admitted to the ICU for closer monitoring. Keep systolic blood pressure less than 185. Check MRI of the brain, check echocardiogram. Reconsult neurology with SOC after work-up has been completed or if new events occur during this patient's hospitalization. Hold off on antiplatelet medication at this time as she is currently receiving TPA. Continue with atorvastatin. Patient will be n.p.o. Physical, occupational and speech therapy evaluate her. Bedside swallow evaluation. 2. Chest pain: Work-up thus far has been unremarkable. We will continue to check troponins. May be complicated by anxiety. 3. VTE prophylaxis: SCDs as chemical prophylaxis contraindicated at this time as patient is receiving TPA. 4. Advanced care planning: Discussed with the patient. Addressed full CODE STATUS versus DNR Comfort Care arrest. Patient prefers to be DNR Comfort Care arrest at this time. I did advise her as well as her significant other at bedside, that these decisions can be changed at any point. Inpatient E&M: 93409 Init Hosp L3
--- NOTE | 2020-07-13 16:05 | CM.ED ---
Social Work Patient to be admitted to ICU for acute ischemic stroke. This social media coordinator checking back in with patient and patient spouse. Patient tearful and presenting as emotionally labile. Patient spouse appropriate and calm. Support provided to both. MAYNOR Caruso
--- NOTE | 2020-07-13 16:08 | CHAPLAIN ---
Type of Pastoral Visit ___ Initial Visit ___ Follow-up Visit ___ On-call Visit ___ General Patient Visit ___ Spiritual Assessment ___ Family Conference ___ Bereavement ___ Rapid Response ___ Code Blue ___ Other (describe below) Pastoral Care Referral From ___ Patient ___ Family ___ Nurse ___ Physician _x__ Pig Iron Loader ___ Mechanical Assembly ___ Other (describe below) Sacrament/Intervention _x__ Active listening ___ Anointing ___ Amish ___ Bereavement ___ Communion _x__ Janine exploration ___ ___ Life review _x__ Prayer ___ Reconciliation ___ Sacrament of Sick _x__ Supportive presence ___ Wedding ___ Other (describe below) Pastoral Comments met patient at this visit; pt is alert and talking; pt is tearful as offer of spiritual and emotional support is given; pt welcomes support and indicates she is member of local hoahaoism; pt requests that her rehabilitation liaison be called to notify of her admission; pt relates some of her recent health issues as well as surprise of today's event; pt welcomes future visits from this chemical weigher; spouse is at bedside; spouse is available but does not have much to say or add to conversation
--- NOTE | 2020-07-13 17:07 | ECHOD_ITS ---
Reason For Study: CVA Procedure This was a 2D Doppler, Color Flow transthoracic echocardiogram. The study was technically difficult. Exam performed portable in ICU/CCU. Left Ventricle Normal LV size. Left ventricular systolic function is normal. The estimated ejection fraction is 65 %. Diastolic function is indeterminate. No regional wall motion abnormalities noted. Right Ventricle Normal RV size. Normal systolic function. Atria Normal left atrium. Normal right atrium. No doppler evidence for ASD. Mitral Valve There is mild mitral annular calcification. Normal mitral valve. Trivial mitral valve insufficiency. Tricuspid Valve Normal tricuspid valve. Trivial tricuspid valve insufficiency. Unable to estimate RV systolic pressure/pulmonary artery pressure due to technically difficult study. Aortic Valve Trisinus/trileaflet aortic valve. Mild diffuse aortic valve thickening. Mild focal aortic valve calcification. Aortic sclerosis, no stenosis. Trivial eccentric aortic valve insufficiency. Pulmonic Valve The pulmonic valve is not well visualized. Great Vessels Normal sized aortic root. Pericardium/Pleural No pericardial effusion. Medication Negative bubble study on previous echo. MMode/2D Measurements & Calculations LVIDd: 4.4 cm IVSd: 0.94 cm Ao root diam: 3.8 cm LVIDs: 2.4 cm LVPWd: 0.89 cm RVDd: 2.6 cm FS: 44.1 % LAV(MOD-bp): 36.0 ml LA A4 area: 14.7 cm2 LA dimension(2D): 3.6 cm LAV(MOD-bp) Indexed: 19.0 ml/m2 LAV(MOD-sp2): 26.3 ml LAV(MOD-sp4): 34.3 ml RA A4 area: 14.2 cm2 Doppler Measurements & Calculations MV E max kunal: 62.1 cm/sec Lat Peak E' Kunal: 7.0 cm/sec Med Peak E' Kunal: 4.8 cm/sec MV A max kunal: 75.6 cm/sec E/E' lat: 8.9 E/E' med: 12.8 MV E/A: 0.82 Ao V2 max: 128.2 cm/sec LV V1 max: 85.1 cm/sec PA V2 max: 100.9 cm/sec Ao max P.6 mmHg LV V1 max P.9 mmHg Interpretation Summary The study was technically difficult. Left ventricular systolic function is normal. The estimated ejection fraction is 65 %. There is mild mitral annular calcification. Trivial mitral valve insufficiency. Trivial tricuspid valve insufficiency. Aortic sclerosis, no stenosis. Trivial eccentric aortic valve insufficiency. Unable to estimate RV systolic pressure/pulmonary artery pressure due to technically difficult study. Diastolic function is indeterminate. Ordering Physician: Bacilio Hamilton Referring Physician: Dorene Whittaker Performed By: Radha Rosenbaum RDCS
[2020-07-13] MEDS: Doxazosin 1 MG Tablet PO (21:32)
[2020-07-13] MEDS: Atorvastatin Calcium 20 MG Tablet PO (21:32)
[2020-07-13] MEDS: clonazePAM 0.5 MG Tablet PO (21:32)
[2020-07-13] MEDS: lamoTRIgine 100 MG Tablet 200 MG PO (21:32)
[2020-07-13] MEDS: Gabapentin 100 MG Capsule 200 MG PO (21:33)
[2020-07-14] VITALS (33 sets, daily range): BP systolic 112–151; BP diastolic 64–98; PULSE 68–88; RESP 13–37; TEMP 36.4–36.8; O2SAT 92–99; BMI 31.6
[2020-07-14] MEDS: 0.9% Normal Saline 1,000 ML 100 ML IV (02:26)
[2020-07-14 03:54] LABS: Absolute Lymphocyte Count 3.27 X10^3/uL (0.83-4.51); Absolute Neutrophil Count 5.4 X10^3/uL (2.0-7.7); Basophil# 0.05 X10^3/uL; Basophil% 0.5 % (0-1); Eosinophil# 0.38 X10^3/uL; Eosinophils% 3.9 % (0-5); Hematocrit 39.6 % (37-47); Hemoglobin 13.3 g/dL (12.0-15.0); Lymphocyte # 3.27 X10^3/ul (4.0); Lymphocyte % 33.5 % (19-41); Mean Corp Hgb Conc 33.6 g/dL (32-36); Mean Corpuscular Hgb 30.1 pg (27.0-32.0); Mean Corpuscular Volume 89.6 fL (81-99); Mean Platelet Vol. 9.3 fl (6.2-12.0); Monocyte% 7.2 % (0-10); NRBC Flagged by Analyzer 0 % (0-5); Neutrophil # 5.35 X10^3/uL (2.7-7.7); Neutrophil % 54.7 % (47-70); Platelet Count 224 K/mm3 (150-450); RBC Distribution Width CV 12.4 % (11.6-14.6); RBC Distribution Width SD 40.5 fl (35.1-43.9); Red Blood Count 4.42 M/mm3 (4.2-5.4); White Blood Count 9.8 K/mm3 (4.4-11.0)
[2020-07-14 04:06] LABS: Anion Gap 8 (5-15); BUN 8 mg/dL (7-18); BUN/Creat Ratio 8.3 RATIO (10-20); Calcium,Total 8.5 mg/dL (8.5-10.1); Chloride 107 mmol/L (98-107); Cholesterol 156 mg/dL (200); Creatinine, Serum 0.96 mg/dL (0.55-1.02); EST Glomerular Filtration Rate 62 mL/min (>60); Est Glom Filt Rate - Afr Amer 75 mL/min (>60); Estimated Creatinine Clearance 51.12 ml/min; Glucose 81 mg/dL (74-106); High Density Lipoprotein 43 mg/dL; Potassium 3.7 mmol/L (3.5-5.1); Sodium Level 140 mmol/L (136-145); Triglycerides 118 mg/dL; Very Low Density Lipoprotein 24 mg/dL (5-40)
[2020-07-14] MEDS: 0.9% Saline Lock 10 ML Syringe IV (04:12)
[2020-07-14] MEDS: Acetaminophen 325 MG Tablet 650 MG PO (04:13)
[2020-07-14] MEDS: Carbidopa/Levodopa 25/100 Tablet PO ×3 (06:33→21:52)
--- NOTE | 2020-07-14 07:14 | PCM.CON.CC ---
Problem List (1) Obesity due to excess calories Status: Acute Qualifiers: Obesity classification: adult class 1 (BMI 30 - 34.9) Serious obesity comorbidity presence: with serious comorbidity Body mass index: BMI 31.0-31.9 Qualified Code(s): E66.09 - Other obesity due to excess calories; Z68.31 - Body mass index (BMI) 31.0-31.9, adult (2) Acute ischemic stroke Status: Acute (3) Fibromyalgia Status: Chronic (4) Chronic back pain Status: Chronic (5) Hyperlipidemia Status: Chronic (6) Hypertension Status: Chronic Reason for Consult Date of Consultation: 07/14/20 Reason for Consultation: CVA status post TPA History of Present Illness: The patient is a 64 year old F, with past medical history listed below, who presented to [facility] on 07/13/2020 at 3:15 PM after developing left arm paresthesia, left-sided weakness and slurred speech at approximately noon. Patient had reported some slight change in vision also. Patient was made a stroke team immediately on arrival. After evaluation by the neurologist from [facility], patient was administered TPA with the bolus given at 3:34 PM. Per ER documentation, patient's NIH at that time was 9 secondary to dysarthria, left-sided drip and left-sided sensation. Patient's blood pressure was elevated at 143/108 just before 3:00. Since being in the intensive care unit, patient reports significant improvement in overall condition. Patient is still having some drift on the left side along with mild sensory deficits. Patient has not had any bleeding complications. Blood pressure has been well controlled and she has remained on room air. Patient states I wish I could have gone home last night. Patient reports that she is never had a stroke previously. Patient considers herself relatively healthy, but does have seasonal allergies, hypertension and hyperlipidemia at baseline. Patient also suffers from chronic pain. Patient is on Klonopin routinely. Patient otherwise denies any acute illness such as fever, chills, nausea or vomiting. No lower extremity edema or trauma has been reported. Despite chronic pain issues, patient has never had focal neurologic deficits. Review of systems otherwise negative from a constitutional, HEENT, respiratory, cardiovascular, GI, genitourinary, musculoskeletal, skin, neurologic, psychiatric and hematologic system unless stated above. Past Medical History Past Medical History (Chronic Problems): Chronic Problems Fibromyalgia (Chronic) Anxiety (Chronic) Chronic back pain (Chronic) Hyperlipidemia (Chronic) Hypertension (Chronic) Allergies buprenorphine HCl [From Suboxone] Allergy (Verified 07/13/20 15:13) Anaphylaxis erythromycin base [Erythromycin Base] Allergy (Verified 07/13/20 17:12) unsure naloxone HCl [From Suboxone] Allergy (Verified 07/13/20 15:13) Anaphylaxis Home Medications: Ambulatory Orders Medication Instructions Recorded Lamotrigine [Lamictal] 200 mg PO BID 12/13/13 Aripiprazole [Abilify] 2 mg PO DAILY 07/13/20 Atenolol 25 mg PO DAILY 07/13/20 Carbidopa/Levodopa 1 ea PO TID 07/13/20 [Carbidopa-Levodopa 25-100 Tab] Cholecalciferol (VIT D3) [Vitamin 3,000 unit PO DAILY 07/13/20 D] Clonazepam [Klonopin] 0.5 mg PO BID 07/13/20 Gabapentin [Neurontin] 200 mg PO BID 07/13/20 Loratadine [Claritin] 10 mg PO DAILY 07/13/20 Perphenazine 2 mg PO QHS 07/13/20 Prazosin HCl 1 mg PO QHS 07/13/20 Simvastatin [Zocor] 40 mg PO QHS 07/13/20 Surgical History: mastectomy, - - Neck surgery. 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 Chest x-ray was within normal limits. CT scan of the head showed no acute bleed. Patient did have a carotid artery duplex study in 2012 and 2013 that was within normal limits. No echocardiogram or PFT has been completed previously. - Physical Exam Vitals/I&O's: Vital Signs Temp Pulse Resp BP Pulse Ox 36.8 C 70 19 H 132/64 H 97 07/14/20 04:30 07/14/20 06:30 07/14/20 06:30 07/14/20 06:30 07/14/20 06:30 Oxygen Delivery Method Room Air Weight: 83.6 kg Body Mass Index (BMI) 31.6 Finger Stick Blood Glucose 125 Intake and Output for Last 24 Hours 07/12/20 07/13/20 07/14/20 23:59 23:59 23:59 Intake Total 275.57 / 395.57 1123.33 / 1123.33 Output Total 300 / 550 1000 / 1000 Balance -24.43 / -154.43 123.33 / 123.33 General: Alert, Oriented x3, Cooperative, No apparent distress, Well developed, Well nourished, - - Obese. Slight dysarthria HEENT: Atraumatic, PERRLA, EOMI, Normocephalic, - - No facial droop appreciated. No scleral icterus or injection noted Oral: Moist Mucosa, No Gingival or Mucosal Lesions/ Ulcerations Neck: Supple, No JVD, No Nodes, Trachea Midline, - - No carotid bruit appreciated Lungs: Clear to auscultation, Normal air movement, No rhonchi, No wheeze, No rales Cardiovascular: Regular rate, Regular Rhythm, Normal S1, Normal S2, No murmurs, No rub noted, No Gallop Abdomen: Bowel Sounds Present, Soft, Non Tender, Non-Distended, Obese Extremities: No clubbing, No cyanosis, Edema - Trace lower extremities Skin: No rashes, No breakdown Musculoskeletal: No Tenderness to Palpation of Joints or Extremities Lymphatic: No Cervical, Supraclavicular, or Inguinal Adenopathy Neurological: - - Slightly decreased sensation on the left and drift of the left upper extremity Psych/Mental Status: Alert and oriented to time, place, person, mood and affect Laboratory Results 07/13/20 14:55: POC Glucose 125 H 07/13/20 15:15: WBC 8.4, RBC 4.13 L, Hgb 12.3, Hct 37.6, MCV 91.0, MCH 29.8, MCHC 32.7, RDW Std Deviation 41.6, RDW Coeff of Mckay 12.6, Plt Count 208, MPV 9.3, Immature Gran % (Auto) 0.400, Neut % (Auto) 58.1, Lymph % (Auto) 29.2, [place] % (Auto) 8.4, Eos % (Auto) 3.5, Baso % (Auto) 0.4, Absolute Neuts (auto) 4.9, Absolute Lymphs (auto) 2.45, Nucleated RBC % 0 07/13/20 15:15: PT 14.0, INR 1.1, APTT 27.4 07/13/20 15:15: Sodium 137, Potassium 3.8, Chloride 104, Carbon Dioxide 29.0, Anion Gap 4 L, BUN 10, Creatinine 0.99, Estim Creat Clear Calc 49.57, Est GFR (MDRD) Af Amer 73, Est GFR (MDRD) Non-Af 60, BUN/Creatinine Ratio 10.1, Glucose 115 H, Calcium 8.6, Troponin I < 0.015 07/13/20 18:00: Troponin I < 0.015 07/13/20 20:10: Troponin I < 0.015 07/14/20 03:40: WBC 9.8, RBC 4.42, Hgb 13.3, Hct 39.6, MCV 89.6, MCH 30.1, MCHC 33.6, RDW Std Deviation 40.5, RDW Coeff of Mckay 12.4, Plt Count 224, MPV 9.3, Immature Gran % (Auto) 0.200, Neut % (Auto) 54.7, Lymph % (Auto) 33.5, [place] % (Auto) 7.2, Eos % (Auto) 3.9, Baso % (Auto) 0.5, Absolute Neuts (auto) 5.4, Absolute Lymphs (auto) 3.27, Nucleated RBC % 0 07/14/20 03:40: Sodium 140, Potassium 3.7, Chloride 107, Carbon Dioxide 25.0, Anion Gap 8, BUN 8, Creatinine 0.96, Estim Creat Clear Calc 51.12, Est GFR (MDRD) Af Amer 75, Est GFR (MDRD) Non-Af 62, BUN/Creatinine Ratio 8.3 L, Glucose 81, Calcium 8.5, Triglycerides 118, Cholesterol 156, LDL Cholesterol 89, VLDL Cholesterol 24, HDL Cholesterol 43 Current Medications Acetaminophen (Tylenol) 650 mg PO .X1 PRN PRN Reason: Temp > 99.6 F Acetaminophen (Tylenol) 650 mg PO Q6H PRN PRN PRN Reason: Pain Score 1-10/Temp >100.7 Last Admin: 07/14/20 04:13 Dose: 650 mg Documented by: Aripiprazole (Abilify) 2 mg PO DAILY [facility] Atenolol (Tenormin (Beta Mac)) 25 mg PO DAILY [facility] Atorvastatin Calcium (Lipitor) 20 mg PO QHS [facility] Last Admin: 07/13/20 21:32 Dose: 20 mg Documented by: Carbidopa/Levodopa (Sinemet) 1 tablet PO TIDAC [facility] Last Admin: 07/14/20 06:33 Dose: 1 tablet Documented by: Cholecalciferol (Vitamin D (25mcg)) 3,000 unit PO DAILY [facility] Clonazepam (Klonopin) 0.5 mg PO BID [facility] Last Admin: 07/13/20 21:32 Dose: 0.5 mg Documented by: Diphenhydramine HCl (Benadryl) 50 mg IV .X1 PRN PRN Reason: Allergic Reaction Stop: 07/15/20 15:24 Doxazosin Mesylate (Cardura) 1 mg PO QHS [facility] Last Admin: 07/13/20 21:32 Dose: 1 mg Documented by: Epinephrine HCl () 0.3 mg IM .X1 PRN PRN Reason: Allergic Reaction Stop: 07/15/20 15:24 Gabapentin (Neurontin) 200 mg PO BID [facility] Last Admin: 07/13/20 21:33 Dose: 200 mg Documented by: Hydralazine HCl (Apresoline Iv) 5 mg IV Q30M PRN PRN Reason: to maintain BP goals Sodium Chloride () 1,000 mls @ 100 mls/hr IV .Q10H [facility] Last Admin: 07/14/20 02:26 Dose: 100 mls/hr Documented by: Famotidine 20 mg/ Sodium (Chloride) 10 mls @ 300 mls/hr IV .X1 PRN PRN Reason: Allergic Reaction Stop: 07/15/20 15:23 Nicardipine/Dextrose (Cardene-Dex 20 Mg/200 Ml Soln) 20 mg in 200 mls @ 50 mls/hr IV .Q4H PRN; Protocol PRN Reason: See Instructions Labetalol HCl (Trandate) 20 mg IV X1 PRN PRN Reason: BLOOD PRESSURE Labetalol HCl (Trandate) 20 mg IV X1 PRN; Protocol PRN Reason: BLOOD PRESSURE Labetalol HCl (Trandate) 10 - 20 mg IV Q10M PRN PRN PRN Reason: to Maintain BP Goals Lamotrigine (Lamictal) 200 mg PO BID [facility] Last Admin: 07/13/20 21:32 Dose: 200 mg Documented by: Loratadine (Claritin) 10 mg PO DAILY [facility] Methylprednisolone (Solu-Medrol) 125 mg IV .X1 PRN PRN Reason: Allergic Reaction Stop: 07/15/20 15:24 Perphenazine (Perphenazine) 2 mg PO QHS [facility] Last Admin: 07/13/20 21:33 Dose: 2 mg Documented by: Sodium Chloride () 10 - 40 ml IV UD PRN PRN Reason: SALINE FLUSH Last Admin: 07/14/20 04:12 Dose: 40 ml Documented by: Clinical Impression(s) from Imaging Studies Brain CT 07/13/20 14:56 IMPRESSION: Chronic involutional changes of the brain. N.B. : The above information has been verbally conveyed by Eros Chase to [facility] on 07/13/2020 15:14:02 (ET). Electronically Signed: Erso Chase, at 15:15 EDT , Service support , ADDENDUM: 07/13/20 1522 IMPRESSION: Chronic involutional changes of the brain. N.B. : The above information has been verbally conveyed by Eros Chase to [facility] on 07/13/2020 15:14:02 (ET). Electronically Signed: Eros Chase, at 15:15 EDT , Service support , Head/Neck CTA 07/13/20 14:57 IMPRESSION: No significant stenosis is seen. 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 Electronically Signed: Eros Chase, at 15:24 EDT , Service support , Chest X-Ray 07/13/20 16:00 IMPRESSION: Degenerative changes, as described above. No demonstrated acute cardiopulmonary process. Electronically Signed: David Carter MD at 16:16 EDT , Service support , Assessment/Plan Active and Suspected Problems Acute ischemic stroke (Acute) Obesity due to excess calories (Acute) RECOMMENDATIONS: 1. Continue post TPA protocol 2. No intervention on blood pressure at this time 3. PT/OT/ST therapies for evaluation 4. Consider outpatient evaluation for obstructive sleep apnea 5. Okay to leave the intensive care unit after 4 PM if no bleed noted on MRI IMPRESSIONS: 1. Acute CVA secondary to probable embolism Good response to TPA. Patient has had significant improvement in left-sided weakness following TPA. Speech appears to be normal on my exam. Patient has remained hemodynamically stable on room air with no signs of bleeding complications. We will continue with TPA protocol. Patient has an echocardiogram ordered. Previous carotid studies have been unremarkable. Patient should be seen by PT/OT and ST secondary to reported dysarthria and left-sided weakness. Blood pressure does not require intervention at this time. 2. Probable HECTOR Patient with obesity, hypertension and recent stroke. High clinical suspicion for obstructive sleep apnea. Recommend polysomnogram as an outpatient for evaluation. 3. Obesity/fibromyalgia/anxiety/chronic pain syndrome/hypertension/hyperlipidemia Complicates care, management, recovery and prognosis. Okay to continue with baseline medications from my perspective. Statin should be increased to high dose given acute ischemic event Inpatient E&M: 00322 Init Hosp L2
--- NOTE | 2020-07-14 09:44 | PN_ITS ---
Patient Problems: Active and Suspected Problems Acute ischemic stroke (Acute) Subjective: Chief complaint: Follow-up after admission for acute stroke status post TPA. Patient seen and examined. No acute events overnight. This morning, patient mentioned that her speech is getting better, more fluent and coherent. Weakness on the left side also getting better. She denied headache, vision change. Denied chest pain or shortness of breath. Her vital signs are stable. - Physical Exam Vitals/I&O's: Vital Signs Temp Pulse Resp BP Pulse Ox 98.3 F 75 13 133/78 H 97 07/14/20 04:30 07/14/20 08:30 07/14/20 08:30 07/14/20 08:30 07/14/20 08:30 Oxygen Delivery Method Room Air Weight: 184 lb 4.903 oz Body Mass Index (BMI) 31.6 Finger Stick Blood Glucose 125 Intake and Output for Last 24 Hours 07/12/20 07/13/20 07/14/20 23:59 23:59 23:59 Intake Total 275.57 / 395.57 1123.33 / 1123.33 Output Total 300 / 550 1120 / 1120 Balance -24.43 / -154.43 3.33 / 3.33 General: Alert, Oriented x3, Cooperative, No apparent distress HEENT: Atraumatic, PERRLA, EOMI, Normocephalic Oral: Moist Mucosa, No Gingival or Mucosal Lesions/ Ulcerations Neck: Supple, No JVD, Negative Carotid Bruits, Trachea Midline, Thyroid Normal Size and Texture Lungs: Clear to auscultation, Normal air movement, No rhonchi, No wheeze, No ra les Cardiovascular: Regular rate, Regular Rhythm, Normal S1, Normal S2, No murmurs, PMI Normal Abdomen: Bowel Sounds Present, Soft, Non Tender, Non-Distended, No Hepato- splenomegaly, Obese Extremities: No clubbing, No cyanosis, No edema Skin: No rashes, No breakdown Lymphatic: No Cervical, Supraclavicular, or Inguinal Adenopathy Neurological: Cranial nerves II-XII grossly intact, - - Minimal weakness on the left upper extremity. Left lower extremity drift. Psych/Mental Status: Normal Affect, Appropriate, Alert and oriented to time, place, person, mood and affect Laboratory Results 07/13/20 14:55: POC Glucose 125 H 07/13/20 15:15: WBC 8.4, RBC 4.13 L, Hgb 12.3, Hct 37.6, MCV 91.0, MCH 29.8, MCHC 32.7, RDW Std Deviation 41.6, RDW Coeff of Mckay 12.6, Plt Count 208, MPV 9.3, Immature Gran % (Auto) 0.400, Neut % (Auto) 58.1, Lymph % (Auto) 29.2, [place] % (Auto) 8.4, Eos % (Auto) 3.5, Baso % (Auto) 0.4, Absolute Neuts (auto) 4.9, Absolute Lymphs (auto) 2.45, Nucleated RBC % 0 07/13/20 15:15: PT 14.0, INR 1.1, APTT 27.4 07/13/20 15:15: Sodium 137, Potassium 3.8, Chloride 104, Carbon Dioxide 29.0, Anion Gap 4 L, BUN 10, Creatinine 0.99, Estim Creat Clear Calc 49.57, Est GFR (MDRD) Af Amer 73, Est GFR (MDRD) Non-Af 60, BUN/Creatinine Ratio 10.1, Glucose 115 H, Calcium 8.6, Troponin I < 0.015 07/13/20 18:00: Troponin I < 0.015 07/13/20 20:10: Troponin I < 0.015 07/14/20 03:40: WBC 9.8, RBC 4.42, Hgb 13.3, Hct 39.6, MCV 89.6, MCH 30.1, MCHC 33.6, RDW Std Deviation 40.5, RDW Coeff of Mckay 12.4, Plt Count 224, MPV 9.3, Immature Gran % (Auto) 0.200, Neut % (Auto) 54.7, Lymph % (Auto) 33.5, [place] % (Auto) 7.2, Eos % (Auto) 3.9, Baso % (Auto) 0.5, Absolute Neuts (auto) 5.4, Absolute Lymphs (auto) 3.27, Nucleated RBC % 0 07/14/20 03:40: Sodium 140, Potassium 3.7, Chloride 107, Carbon Dioxide 25.0, Anion Gap 8, BUN 8, Creatinine 0.96, Estim Creat Clear Calc 51.12, Est GFR (MDRD) Af Amer 75, Est GFR (MDRD) Non-Af 62, BUN/Creatinine Ratio 8.3 L, Glucose 81, Calcium 8.5, Triglycerides 118, Cholesterol 156, LDL Cholesterol 89, VLDL Cholesterol 24, HDL Cholesterol 43 Clinical Impression(s) from Imaging Studies Brain CT 07/13/20 14:56 IMPRESSION: Chronic involutional changes of the brain. N.B. : The above information has been verbally conveyed by Eros Chase to [facility] on 07/13/2020 15:14:02 (ET). Electronically Signed: Eros Chase, at 15:15 EDT , Service support , ADDENDUM: 07/13/20 1522 IMPRESSION: Chronic involutional changes of the brain. N.B. : The above information has been verbally conveyed by Eros Chase to [facility] on 07/13/2020 15:14:02 (ET). Electronically Signed: Eros Chase, at 15:15 EDT , Service support , Head/Neck CTA 07/13/20 14:57 IMPRESSION: No significant stenosis is seen. 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 Electronically Signed: Eros Chase, at 15:24 EDT , Service support , Chest X-Ray 07/13/20 16:00 IMPRESSION: Degenerative changes, as described above. No demonstrated acute cardiopulmonary process. Electronically Signed: David Carter MD at 16:16 EDT , Service support , Current Medications Acetaminophen (Tylenol) 650 mg PO .X1 PRN PRN Reason: Temp > 99.6 F Acetaminophen (Tylenol) 650 mg PO Q6H PRN PRN PRN Reason: Pain Score 1-10/Temp >100.7 Last Admin: 07/14/20 04:13 Dose: 650 mg Documented by: Aripiprazole (Abilify) 2 mg PO DAILY [facility] Atenolol (Tenormin (Beta Mac)) 25 mg PO DAILY [facility] Atorvastatin Calcium (Lipitor) 20 mg PO QHS [facility] Last Admin: 07/13/20 21:32 Dose: 20 mg Documented by: Carbidopa/Levodopa (Sinemet) 1 tablet PO TIDAC [facility] Last Admin: 07/14/20 06:33 Dose: 1 tablet Documented by: Cholecalciferol (Vitamin D (25mcg)) 3,000 unit PO DAILY [facility] Clonazepam (Klonopin) 0.5 mg PO BID [facility] Last Admin: 07/13/20 21:32 Dose: 0.5 mg Documented by: Diphenhydramine HCl (Benadryl) 50 mg IV .X1 PRN PRN Reason: Allergic Reaction Stop: 07/15/20 15:24 Doxazosin Mesylate (Cardura) 1 mg PO QHS [facility] Last Admin: 07/13/20 21:32 Dose: 1 mg Documented by: Epinephrine HCl () 0.3 mg IM .X1 PRN PRN Reason: Allergic Reaction Stop: 07/15/20 15:24 Gabapentin (Neurontin) 200 mg PO BID [facility] Last Admin: 07/13/20 21:33 Dose: 200 mg Documented by: Hydralazine HCl (Apresoline Iv) 5 mg IV Q30M PRN PRN Reason: to maintain BP goals Sodium Chloride () 1,000 mls @ 100 mls/hr IV .Q10H [facility] Last Admin: 07/14/20 02:26 Dose: 100 mls/hr Documented by: Famotidine 20 mg/ Sodium (Chloride) 10 mls @ 300 mls/hr IV .X1 PRN PRN Reason: Allergic Reaction Stop: 07/15/20 15:23 Nicardipine/Dextrose (Cardene-Dex 20 Mg/200 Ml Soln) 20 mg in 200 mls @ 50 mls/hr IV .Q4H PRN; Protocol PRN Reason: See Instructions Labetalol HCl (Trandate) 20 mg IV X1 PRN PRN Reason: BLOOD PRESSURE Labetalol HCl (Trandate) 20 mg IV X1 PRN; Protocol PRN Reason: BLOOD PRESSURE Labetalol HCl (Trandate) 10 - 20 mg IV Q10M PRN PRN PRN Reason: to Maintain BP Goals Lamotrigine (Lamictal) 200 mg PO BID [facility] Last Admin: 07/13/20 21:32 Dose: 200 mg Documented by: Loratadine (Claritin) 10 mg PO DAILY [facility] Methylprednisolone (Solu-Medrol) 125 mg IV .X1 PRN PRN Reason: Allergic Reaction Stop: 07/15/20 15:24 Perphenazine (Perphenazine) 2 mg PO QHS [facility] Last Admin: 07/13/20 21:33 Dose: 2 mg Documented by: Sodium Chloride () 10 - 40 ml IV UD PRN PRN Reason: SALINE FLUSH Last Admin: 07/14/20 04:12 Dose: 40 ml Documented by: Medical Necessity - Tobacco Use Smoking Status: Never smoker Tobacco Use: Non-smoker Assessment/Plan All Active Problems Acute ischemic stroke (Acute) This is a 64 years old female patient presented to the emergency room because of left-sided body weakness, left arm paresthesia and slurred speech, found to have acute stroke, status post TPA. #1 acute ischemic stroke: Status post TPA, with resultant dysarthria and minimal left-sided hemiparesis. Speech and power of the left upper and lower extremities improving. Patient is on statins, status post TPA. Her vital signs are stable, blood pressure under control. Routine blood work was unremarkable. EKG revealed normal sinus rhythm, no acute segment changes. Troponin was negative. Lipid profile reviewed. CT scan brain showed no acute findings. 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 2D echocardiogram done, awaiting the results. Plan for MRI brain this afternoon when patient reaches 24 hours status post TPA. We will need to reconsult [facility] tele-neurology for follow-up. #2 hypertension: Blood pressure stable, continue atenolol and Cardura. #3 hyperlipidemia: Continue statins. Lipid profile reviewed. #4 chronic back pain/fibromyalgia: Stable, continue gabapentin. #5 anxiety and depression: Continue Abilify, Lamictal. #6 DVT prophylaxis: SCDs. Status post TPA. This note was generated with [employer] software. It may contain incorrect words, spelling, and punctuation that were not noted in checking the note before signing. Inpatient E&M: 27788 Subs Hosp L2
--- NOTE | 2020-07-14 10:05 | CASEMGMT ---
RN CM Assessment Note Intro role of CM to patient's via phone. Patient unable to participated in assessment @ this time. Per , patient is generally independent in ADL's, however showers when her is available as she has fallen in the past. states she has been forgetful and she is going to a neurologist in [place]. 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 does not know of specific diagnosis yet. Presentation: Patient presented with Left arm parasthesia, L arm weakness, slurred speech, difficulty with ambulation Diagnosis: CVA PCP: Dr. Tammi Whittaker Specialists: [facility] currently in hospital; Neurologist in [place] Insurance: [employer] Preferred Pharmacy: [facility] in [place] Prescription Benefit: yes LNOK: Dr. Whittaker Living Arrangements: Lives with her in one story home, 3 steps into home. Patient uses cane in community, and walker occasionally at home, Tranportation: drives DME: cane, walker, cpap (not using at home) HHC: none SNF: none Patient DC Goals: unknown DC Plan: undetermined. TPA bedrest completed around 3:30 this afternoon. MRI ordered for this afternoon. PT/OT/Speech ordered when patient able to participate. CM available for discharge planning coordination. Delilah BRAGA RN ACM
[2020-07-14] MEDS: Atenolol 25 MG Tablet PO (11:03)
[2020-07-14] MEDS: Loratadine 10 MG Tablet PO (11:03)
[2020-07-14] MEDS: Gabapentin 100 MG Capsule 200 MG PO ×2 (11:03→21:53)
[2020-07-14] MEDS: ARIPiprazole 2 MG Tablet PO (11:03)
[2020-07-14] MEDS: lamoTRIgine 100 MG Tablet 200 MG PO ×2 (11:03→21:53)
[2020-07-14] MEDS: clonazePAM 0.5 MG Tablet PO ×2 (11:05→21:53)
--- NOTE | 2020-07-14 14:30 | MRI_ITS ---
STUDY: MRI BRAIN WITHOUT CONTRAST REASON FOR EXAM: Female, 64 years old. CVA, 24 hrs post TPA, left weakness TECHNIQUE: Standardized multiplanar fat and water weighted pulse sequences were obtained. COMPARISON: CT July 13, 2020 FINDINGS: There is mild cerebral atrophy with widening of the extra-axial spaces and ventricular dilatation. There is focal restricted diffusion in the deep white matter of the right temporal lobe with a recent, acute or subacute, infarct, series 4 images and . Normal T2* images of the brain without demonstrated susceptibility artifact. There is no demonstrated hemosiderin stain. Normal bilateral basal ganglia. Normal thalami. There is no extra-axial fluid accumulation. Normal flow voids within the major intracranial circulation suggesting patency by spin echo criteria. Normal sella turcica, pituitary gland, infundibular stalk, optic chiasm and hypothalamus. Normal tectal plate and pineal gland. Normal midbrain, celina and medulla. Normal cerebellum. Normal basal cisterns. Normal bilateral temporal bones. Normal bilateral internal auditory canals. No demonstrated orbital abnormality, within the constraints of a routine brain study. Mucosal thickening of the right maxillary sinus Normal calvarium and skull base. Normal visualized soft tissue structures. Normal visualized upper cervical spine. MRI/Brain without Contrast IMPRESSION: Right temporal lobe infarct. No hemorrhage. Electronically Signed: David Carter MD at 16:43 EDT , Service support ,
[2020-07-14] MEDS: LORazepam 2 MG/ML Syringe 1 MG IV ×2 (15:03→15:34)
--- NOTE | 2020-07-14 15:15 | NURSING ---
Pt transported to MRI per Sangeeta CARRILLO
--- NOTE | 2020-07-14 16:11 | CHAPLAIN ---
Type of Pastoral Visit ___ Initial Visit _x__ Follow-up Visit ___ On-call Visit ___ General Patient Visit ___ Spiritual Assessment ___ Family Conference ___ Bereavement ___ Rapid Response ___ Code Blue ___ Other (describe below) Pastoral Care Referral From _x__ Patient ___ Family ___ Nurse ___ Physician ___ Business Center Manager ___ Saddle And Side Wire Stitcher ___ Other (describe below) Sacrament/Intervention _x__ Active listening ___ Anointing ___ Hoahaoism ___ Bereavement ___ Communion _x__ Janine exploration ___ _x__ Life review _x__ Prayer ___ Reconciliation ___ Sacrament of Sick _x__ Supportive presence ___ Wedding ___ Other (describe below) Pastoral Comments patient very talkative and goes into some family history; pt has spiritual questions/ideas that trouble her; given time for presence, listening, affirmation, and prayer; pt has support of spouse but daughter is estranged; pt was taken for MRI at conclusion of visit
--- NOTE | 2020-07-14 17:20 | TELEMED_ITS ---
[facility] Telemed has confirmed receipt of a request for visit. This document confirms receipt of the order initiating the consult. To find the results of the consultation, please view the patient's reports for the scanned Telemed Consult.
--- NOTE | 2020-07-14 18:30 | NURSING ---
Pt requested that 1600 sinemet be taken after eating dinner. Pt just recently brought to unit from ICU. Dinner set up in front of pt and pt just starting to eat.
--- NOTE | 2020-07-14 20:39 | PCM.PN.BLA ---
Progress Note A tele-neurologist called. Okay to start patient on baby aspirin daily MRI did not show any hemorrhage. Okay to escalate Lipitor from 20 mg every night to 40 mg every night. Goal LDL is less than 70. Tele neurologist will put his notes in. STROKE Vital Signs/Narrative: Vital Signs Temp Pulse Resp BP Pulse Ox 07/14/20 19:37 98.0 F 77 16 134/73 H 96 07/14/20 19:15 76 07/14/20 18:14 97.8 F 75 16 122/95 H 98 07/14/20 18:10 97.6 F L 75 16 122/95 H 98
[2020-07-14] MEDS: Doxazosin 1 MG Tablet PO (21:52)
[2020-07-14] MEDS: Atorvastatin Calcium 40 MG Tablet PO (21:53)
[2020-07-15] VITALS (12 sets, daily range): BP systolic 109–146; BP diastolic 67–79; PULSE 71–85; RESP 16–18; TEMP 36.4–37; O2SAT 93–97; BMI 31.6
[2020-07-15] MEDS: Carbidopa/Levodopa 25/100 Tablet PO ×3 (06:21→16:29)
[2020-07-15] MEDS: 0.9% Saline Lock 10 ML Syringe IV ×2 (08:37→21:50)
[2020-07-15] MEDS: ARIPiprazole 2 MG Tablet PO (08:39)
[2020-07-15] MEDS: Loratadine 10 MG Tablet PO (08:39)
[2020-07-15] MEDS: lamoTRIgine 100 MG Tablet 200 MG PO ×2 (08:39→21:32)
[2020-07-15] MEDS: Gabapentin 100 MG Capsule 200 MG PO ×2 (08:40→21:32)
[2020-07-15] MEDS: Aspirin 81 MG TAB.CHEW PO (08:41)
[2020-07-15] MEDS: Atenolol 25 MG Tablet PO (08:41)
[2020-07-15] MEDS: clonazePAM 0.5 MG Tablet PO ×2 (08:42→21:32)
--- NOTE | 2020-07-15 10:34 | PN_ITS ---
Subjective: Patient transferred out of the intensive care unit yesterday. Patient states that she feels subjectively improved compared to yesterday. Patient feels her speech is slightly improved, but she still has some weakness on the left side. No bleeding complications have been reported by the patient or nursing staff. Objective: MRI was personally reviewed and shows a right temporal infarct. Echocardiogram showed an EF of 65% with negative bubble study. Mild calcification noted without significant valvular defects. General: Alert, Oriented x3, Cooperative, No apparent distress, Well developed, Well nourished, - - Obese. Speaking in full sentences. HEENT: Atraumatic, PERRLA, EOMI, Normocephalic, - - No scleral icterus or injection noted. No facial droop appreciated. Oral: Moist Mucosa, No Gingival or Mucosal Lesions/ Ulcerations Neck: Supple, No JVD, No Nodes, Trachea Midline Lungs: Clear to auscultation, Normal air movement, No rhonchi, No wheeze, No rales, - - Symmetric expansion. Cardiovascular: Regular rate, Regular Rhythm, Normal S1, Normal S2, No murmurs, No rub noted, No Gallop Abdomen: Bowel Sounds Present, Soft, Non Tender, Non-Distended Extremities: No clubbing, No cyanosis, Capillary Refill Less than 3 Seconds, Edema - 1+ lower extremities Skin: No rashes, No breakdown Musculoskeletal: No Tenderness to Palpation of Joints or Extremities Lymphatic: No Cervical, Supraclavicular, or Inguinal Adenopathy Neurological: - - No dysarthria noted. Slight drift on left Psych/Mental Status: Alert and oriented to time, place, person, mood and affect Vital Signs Temp Pulse Resp BP Pulse Ox 36.4 C L 79 16 138/72 H 96 07/15/20 08:30 07/15/20 08:30 07/15/20 08:30 07/15/20 08:30 07/15/20 08:30 Oxygen Delivery Method Room Air Weight: 84.5 kg Body Mass Index (BMI) 31.6 Finger Stick Blood Glucose 125 Intake and Output for Last 24 Hours 07/13/20 07/14/20 07/15/20 23:59 23:59 23:59 Intake Total 275.57 / 395.57 2636.66 / 2636.66 Output Total 300 / 550 2215 / 2215 200 / 200 Balance -24.43 / -154.43 421.66 / 421.66 -200 / -200 Labs (Last 48 Hours) 07/13/20 07/13/20 07/13/20 14:55 15:15 15:15 WBC 8.4 RBC 4.13 L Hgb 12.3 Hct 37.6 MCV 91.0 MCH 29.8 MCHC 32.7 RDW Std Deviation 41.6 RDW Coeff of Mckay 12.6 Plt Count 208 MPV 9.3 Immature Gran % (Auto) 0.400 Neut % (Auto) 58.1 Lymph % (Auto) 29.2 Roane % (Auto) 8.4 Eos % (Auto) 3.5 Baso % (Auto) 0.4 Absolute Neuts (auto) 4.9 Absolute Lymphs (auto) 2.45 Nucleated RBC % 0 PT 14.0 INR 1.1 APTT 27.4 Sodium Potassium Chloride Carbon Dioxide Anion Gap BUN Creatinine Estim Creat Clear Calc Est GFR (MDRD) Af Amer Est GFR (MDRD) Non-Af BUN/Creatinine Ratio Glucose Calcium Troponin I Triglycerides Cholesterol LDL Cholesterol VLDL Cholesterol HDL Cholesterol POC Glucose 125 H 07/13/20 07/13/20 07/13/20 15:15 18:00 20:10 WBC RBC Hgb Hct MCV MCH MCHC RDW Std Deviation RDW Coeff of Mckay Plt Count MPV Immature Gran % (Auto) Neut % (Auto) Lymph % (Auto) Roane % (Auto) Eos % (Auto) Baso % (Auto) Absolute Neuts (auto) Absolute Lymphs (auto) Nucleated RBC % PT INR APTT Sodium 137 Potassium 3.8 Chloride 104 Carbon Dioxide 29.0 Anion Gap 4 L BUN 10 Creatinine 0.99 Estim Creat Clear Calc 49.57 Est GFR (MDRD) Af Amer 73 Est GFR (MDRD) Non-Af 60 BUN/Creatinine Ratio 10.1 Glucose 115 H Calcium 8.6 Troponin I < 0.015 < 0.015 < 0.015 Triglycerides Cholesterol LDL Cholesterol VLDL Cholesterol HDL Cholesterol POC Glucose 07/14/20 07/14/20 03:40 03:40 WBC 9.8 RBC 4.42 Hgb 13.3 Hct 39.6 MCV 89.6 MCH 30.1 MCHC 33.6 RDW Std Deviation 40.5 RDW Coeff of Mckay 12.4 Plt Count 224 MPV 9.3 Immature Gran % (Auto) 0.200 Neut % (Auto) 54.7 Lymph % (Auto) 33.5 Roane % (Auto) 7.2 Eos % (Auto) 3.9 Baso % (Auto) 0.5 Absolute Neuts (auto) 5.4 Absolute Lymphs (auto) 3.27 Nucleated RBC % 0 PT INR APTT Sodium 140 Potassium 3.7 Chloride 107 Carbon Dioxide 25.0 Anion Gap 8 BUN 8 Creatinine 0.96 Estim Creat Clear Calc 51.12 Est GFR (MDRD) Af Amer 75 Est GFR (MDRD) Non-Af 62 BUN/Creatinine Ratio 8.3 L Glucose 81 Calcium 8.5 Troponin I Triglycerides 118 Cholesterol 156 LDL Cholesterol 89 VLDL Cholesterol 24 HDL Cholesterol 43 POC Glucose Clinical Impression(s) from Imaging Studies Brain MRI 07/14/20 14:30 IMPRESSION: Right temporal lobe infarct. No hemorrhage. Electronically Signed: David Carter MD at 16:43 EDT , Service support , Medical Necessity - Tobacco Use Smoking Status: Never smoker Tobacco Use: Non-smoker Assessment/Plan All Active Problems Acute ischemic stroke (Acute) RECOMMENDATIONS: 1. Continue post TPA protocol 2. No intervention on blood pressure at this time 3. PT/OT/ST therapies for evaluation 4. Consider outpatient evaluation for obstructive sleep apnea 5. Hemodynamically stable on room air. Will sign off from a critical care perspective IMPRESSIONS: 1. Acute right temporal CVA secondary to probable embolism Good response to TPA. Patient has had significant improvement in left- sided weakness following TPA. Speech appears to be normal on my exam. Patient has remained hemodynamically stable on room air with no signs of bleeding complications. Patient is past her 24 hours of TPA and no bleeding complications have been noted. Stroke work-up continues and patient is working with therapy. Patient should be seen by PT/OT and ST secondary to reported dysarthria and left-sided weakness. Blood pressure does not require intervention at this time. 2. Probable HECTOR Patient with obesity, hypertension and recent stroke. High clinical suspicion for obstructive sleep apnea. Recommend polysomnogram as an outpatient for evaluation. 3. Obesity/fibromyalgia/anxiety/chronic pain syndrome/hypertension/hyperlipidemia Complicates care, management, recovery and prognosis. Okay to continue with baseline medications from my perspective. Statin should be increased to high dose given acute ischemic event Inpatient E&M: 01882 Subs Hosp L2
--- NOTE | 2020-07-15 10:36 | PCM.PROGNOTE ---
Patient Problems: Active and Suspected Problems Acute ischemic stroke (Acute) Subjective: Chief complaint: Follow-up after admission for acute right temporal lobe infarct, status post TPA with resultant dysarthria and minimal left side hemiparesis. Patient seen and examined. No acute events overnight. Patient states that she is still having dysarthria but improving. Weakness on the left side also is getting better especially the left upper extremity. Denied headache or vision change. Her vital signs are stable. - Physical Exam Vitals/I&O's: Vital Signs Temp Pulse Resp BP Pulse Ox 97.6 F L 79 16 138/72 H 96 07/15/20 08:30 07/15/20 08:30 07/15/20 08:30 07/15/20 08:30 07/15/20 08:30 Oxygen Delivery Method Room Air Weight: 186 lb 4.65 oz Body Mass Index (BMI) 31.6 Finger Stick Blood Glucose 125 Intake and Output for Last 24 Hours 07/13/20 07/14/20 07/15/20 23:59 23:59 23:59 Intake Total 275.57 / 395.57 2636.66 / 2636.66 Output Total 300 / 550 2215 / 2215 200 / 200 Balance -24.43 / -154.43 421.66 / 421.66 -200 / -200 General: Alert, Oriented x3, Cooperative, No apparent distress HEENT: Atraumatic, PERRLA, EOMI, Normocephalic Oral: Moist Mucosa, No Gingival or Mucosal Lesions/ Ulcerations Neck: Supple, No JVD, Negative Carotid Bruits, Trachea Midline, Thyroid Normal Size and Texture Lungs: Clear to auscultation, Normal air movement, No rhonchi, No wheeze, No rales, Diminished Cardiovascular: Regular rate, Regular Rhythm, Normal S1, Normal S2, PMI Normal Abdomen: Bowel Sounds Present, Soft, Non Tender, Non-Distended, No Hepato-splenomegaly Extremities: No clubbing, No cyanosis, No edema Skin: No rashes, No breakdown Musculoskeletal: No Tenderness to Palpation of Joints or Extremities Lymphatic: No Cervical, Supraclavicular, or Inguinal Adenopathy Neurological: Cranial nerves II-XII grossly intact, - - Minimal dysarthria. Drift on both left and lower upper extremities, more prominent on the left leg. Psych/Mental Status: Appropriate, Flat Affect, Alert and oriented to time, place, person, mood and affect Clinical Impression(s) from Imaging Studies Brain CT 07/13/20 14:56 IMPRESSION: Chronic involutional changes of the brain. N.B. : The above information has been verbally conveyed by Eros Salvatore to Oliverjesse Moyero on 07/13/2020 15:14:02 (ET). Electronically Signed: Eros Chase, at 15:15 EDT , Service support , ADDENDUM: 07/13/20 1522 IMPRESSION: Chronic involutional changes of the brain. N.B. : The above information has been verbally conveyed by Erossabrina Chase to Oliverjeses Quintanilla on 07/13/2020 15:14:02 (ET). Electronically Signed: Eros Chase at 15:15 EDT , Service support , Head/Neck CTA 07/13/20 14:57 IMPRESSION: No significant stenosis is seen. 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 Electronically Signed: Eros Chase, at 15:24 EDT , Service support , Chest X-Ray 07/13/20 16:00 IMPRESSION: Degenerative changes, as described above. No demonstrated acute cardiopulmonary process. Electronically Signed: David Carter MD at 16:16 EDT , Service support , Brain MRI 07/14/20 14:30 IMPRESSION: Right temporal lobe infarct. No hemorrhage. Electronically Signed: David Carter MD at 16:43 EDT , Service support , Current Medications Acetaminophen (Tylenol) 650 mg PO .X1 PRN PRN Reason: Temp > 99.6 F Acetaminophen (Tylenol) 650 mg PO Q6H PRN PRN PRN Reason: Pain Score 1-10/Temp >100.7 Last Admin: 07/14/20 04:13 Dose: 650 mg Documented by: Aripiprazole (Abilify) 2 mg PO DAILY [facility] Last Admin: 07/15/20 08:39 Dose: 2 mg Documented by: Aspirin (Aspirin, Baby) 81 mg PO DAILY@0800 [facility] Last Admin: 07/15/20 08:41 Dose: 81 mg Documented by: Atenolol (Tenormin (Beta Amc)) 25 mg PO DAILY [facility] Last Admin: 07/15/20 08:41 Dose: 25 mg Documented by: Atorvastatin Calcium (Lipitor) 40 mg PO QHS [facility] Last Admin: 07/14/20 21:53 Dose: 40 mg Documented by: Carbidopa/Levodopa (Sinemet) 1 tablet PO TIDAC [facility] Last Admin: 07/15/20 06:21 Dose: 1 tablet Documented by: Cholecalciferol (Vitamin D (25mcg)) 3,000 unit PO DAILY [facility] Last Admin: 07/15/20 08:40 Dose: 3,000 unit Documented by: Clonazepam (Klonopin) 0.5 mg PO BID [facility] Last Admin: 07/15/20 08:42 Dose: 0.5 mg Documented by: Diphenhydramine HCl (Benadryl) 50 mg IV .X1 PRN PRN Reason: Allergic Reaction Stop: 07/15/20 15:24 Doxazosin Mesylate (Cardura) 1 mg PO QHS [facility] Last Admin: 07/14/20 21:52 Dose: 1 mg Documented by: Epinephrine HCl () 0.3 mg IM .X1 PRN PRN Reason: Allergic Reaction Stop: 07/15/20 15:24 Gabapentin (Neurontin) 200 mg PO BID [facility] Last Admin: 07/15/20 08:40 Dose: 200 mg Documented by: Hydralazine HCl (Apresoline Iv) 5 mg IV Q30M PRN PRN Reason: to maintain BP goals Famotidine 20 mg/ Sodium (Chloride) 10 mls @ 300 mls/hr IV .X1 PRN PRN Reason: Allergic Reaction Stop: 07/15/20 15:23 Nicardipine/Dextrose (Cardene-Dex 20 Mg/200 Ml Soln) 20 mg in 200 mls @ 50 mls/hr IV .Q4H PRN; Protocol PRN Reason: See Instructions Labetalol HCl (Trandate) 20 mg IV X1 PRN PRN Reason: BLOOD PRESSURE Labetalol HCl (Trandate) 20 mg IV X1 PRN; Protocol PRN Reason: BLOOD PRESSURE Labetalol HCl (Trandate) 10 - 20 mg IV Q10M PRN PRN PRN Reason: to Maintain BP Goals Lamotrigine (Lamictal) 200 mg PO BID [facility] Last Admin: 07/15/20 08:39 Dose: 200 mg Documented by: Loratadine (Claritin) 10 mg PO DAILY [facility] Last Admin: 07/15/20 08:39 Dose: 10 mg Documented by: Methylprednisolone (Solu-Medrol) 125 mg IV .X1 PRN PRN Reason: Allergic Reaction Stop: 07/15/20 15:24 Perphenazine (Perphenazine) 2 mg PO QHS [facility] Last Admin: 07/14/20 21:53 Dose: 2 mg Documented by: Sodium Chloride () 10 - 40 ml IV UD PRN PRN Reason: SALINE FLUSH Last Admin: 07/15/20 08:37 Dose: 10 ml Documented by: Medical Necessity - Tobacco Use Smoking Status: Never smoker Tobacco Use: Non-smoker Assessment/Plan All Active Problems Acute ischemic stroke (Acute) This is a 64 years old female patient presented to the emergency room because of left-sided body weakness, left arm paresthesia and slurred speech, found to have acute stroke, status post TPA. #1 acute ischemic right temporal infarct stroke: Status post TPA, with resultant dysarthria and minimal left-sided hemiparesis. MRI brain reviewed, revealed right temporal infarct, no hemorrhage. Speech and power of the left upper and lower extremities improving. Patient was started on aspirin, remains on statins. Her blood pressure are stable. EKG revealed normal sinus rhythm, no acute segment changes. Troponin was negative. Lipid profile reviewed. CT scan brain showed no acute findings. 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 2D echocardiogram revealed normal LV size and function, ejection fraction was 65%, aortic sclerosis, no stenosis. Plan for PT OT evaluation and treatment, patient will need placement to [facility]. #2 hypertension: Blood pressure stable, continue atenolol and Cardura. #3 hyperlipidemia: Continue statins. Lipid profile reviewed. #4 chronic back pain/fibromyalgia: Stable, continue gabapentin. #5 anxiety and depression: Continue Abilify, Lamictal. #6 DVT prophylaxis: SCDs. Status post TPA. This note was generated with [employer] dictation software. It may contain incorrect words, spelling, and punctuation that were not noted in checking the note before signing. Inpatient E&M: 30637 Subs Hosp L2
--- NOTE | 2020-07-15 13:51 | CASEMGMT ---
Social Work SW met with pt in room and introduced self and role to pt. Pt presenting with new CVA, PHQ9 depression screen completed with pt score of 14 indicating moderate depression. Pt stating she has struggled with depression for the last 12 years and [facility]. Pt sees Dr. Velez, psychiatrist every three months and talks with a counselor, Mercedes Webb, on the phone once every three weeks. Pt does take medication for depression and pt states the counselors and medication are helpful. Pt denies suicidal ideation. SW spent significant time with pt offering support and listening to pt. Pt lives at home with her spouse however, spouse does work a lot and pt is home alone. SW discussed discharge plan with pt and pt states she is planning to go to at time of discharge. This SW notified MAYNOR Marcos of pt wishes to go to . [facility]ER[facility] Fuchs
--- NOTE | 2020-07-15 15:33 | CASEMGMT ---
SW called Paula in the Rehab Unit and she said they can take patient. She said she will start the pre-cert as soon as therapy puts their notes in. SW spoke with therapy and they were going to see patient first. Plan: [facility] 4th floor rehab unit pending insurance approval. Priti LYN
[2020-07-15] MEDS: Doxazosin 1 MG Tablet PO (21:31)
[2020-07-15] MEDS: Atorvastatin Calcium 40 MG Tablet PO (21:32)
[2020-07-16] VITALS (7 sets, daily range): BP systolic 103–130; BP diastolic 59–72; PULSE 61–82; RESP 16–18; TEMP 36.6–36.7; O2SAT 94–97; BMI 31.6
[2020-07-16] MEDS: Carbidopa/Levodopa 25/100 Tablet PO ×2 (06:23→11:55)
[2020-07-16] MEDS: Loratadine 10 MG Tablet PO (09:00)
[2020-07-16] MEDS: Aspirin 81 MG TAB.CHEW PO (09:00)
[2020-07-16] MEDS: Atenolol 25 MG Tablet PO (09:00)
[2020-07-16] MEDS: ARIPiprazole 2 MG Tablet PO (09:00)
[2020-07-16] MEDS: clonazePAM 0.5 MG Tablet PO (09:00)
[2020-07-16] MEDS: lamoTRIgine 100 MG Tablet 200 MG PO (09:00)
[2020-07-16] MEDS: Gabapentin 100 MG Capsule 200 MG PO (09:00)
[2020-07-16] MEDS: 0.9% Saline Lock 10 ML Syringe IV (09:02)
--- NOTE | 2020-07-16 10:28 | DCINST_ITS ---
- Discharge Diagnoses Current Active Problems: Current Active and Chronic Problems Acute ischemic stroke (Acute) You will use the following diet at home:: Cardiac Your food should be the consistency of: Regular Discharge Activity: Return to Normal Activity Weight Bearing Status: Weight bearing as tolerated Call your doctor if you observe: Fever of 101 or Higher, Shortness of breath, Dizziness, Fainting spells, Chest pain, Increased palpitations (irregular heartbeat), Uncontrolled pain Allergies/Adverse Reactions: Allergies buprenorphine HCl [From Suboxone] Allergy (Verified 07/13/20 15:13) Anaphylaxis erythromycin base [Erythromycin Base] Allergy (Verified 07/13/20 17:12) unsure naloxone HCl [From Suboxone] Allergy (Verified 07/13/20 15:13) Anaphylaxis Medications to take at Discharge Lamotrigine [Lamictal] 200 mg PO BID 12/13/13 Aripiprazole [Abilify] 2 mg PO DAILY 07/13/20 Atenolol 25 mg PO DAILY 07/13/20 Carbidopa/Levodopa [Carbidopa-Levodopa 25-100 Tab] 1 ea PO TID 07/13/20 Cholecalciferol (VIT D3) [Vitamin D3] 3,000 unit PO DAILY 07/13/20 Clonazepam [Klonopin] 0.5 mg PO BID 07/13/20 Gabapentin [Neurontin] 200 mg PO BID 07/13/20 Loratadine [Claritin] 10 mg PO DAILY 07/13/20 Perphenazine 2 mg PO QHS 07/13/20 Prazosin HCl 1 mg PO QHS 07/13/20 Aspirin [Aspirin, Baby] 81 mg PO DAILY@0800 #90 tab.chew 07/16/20 Atorvastatin Calcium [Lipitor] 40 mg PO QHS #90 tab 07/16/20 The following prescriptions were given: Aspirin [Aspirin, Baby] 81 mg PO DAILY@0800 #90 tab.chew Prescription Printed Atorvastatin Calcium [Lipitor] 40 mg PO QHS #90 tab Prescription Printed Primary Care Physician: Dorene Whittaker MD [Primary Care Provider] - Please follow up with your Primary Care Physician in: 1-2 WEEK. Test Results: Test results from this visit will be discussed in further detail at your follow- up appointment, if applicable.
--- NOTE | 2020-07-16 10:55 | CASEMGMT ---
ALEXIA received a message from Paula in Rehab and patient was approved. SW notified physician and he will send her today. SW notified patient, but she was half asleep. ALEXIA notified RN and medical assistant secretary. ALEXIA called patient's and let him know as well. All in agreement with d/c plan. Plan: d/c to [facility] 4th floor rehab unit. Priti LYN
--- NOTE | 2020-07-16 11:31 | PCM.DC.SUM ---
Discharge Date and Diagnosis - Problem List Patient Problems: Active and Suspected Problems Acute ischemic stroke (Acute) Date of Admission: 07/13/20 Date of Discharge: 07/16/20 - Primary Discharge Diagnosis Acute Problems: Active Problems Acute ischemic right temporal infarct, status post TPA with resultant minimal dysarthria and minimal left side hemiparesis. - Secondary Discharge Diagnosis Chronic Problems: Chronic Problems Fibromyalgia (Chronic) Anxiety (Chronic) Chronic back pain (Chronic) Hyperlipidemia (Chronic) Hypertension (Chronic) Hospital Course and Treatment Imaging Results: Clinical Impression(s) from Imaging Studies Brain CT 07/13/20 14:56 IMPRESSION: Chronic involutional changes of the brain. N.B. : The above information has been verbally conveyed by Eros Chase to Oliver Quintanilla on 07/13/2020 15:14:02 (ET). Electronically Signed: Eros Chase, at 15:15 EDT , Service support , ADDENDUM: 07/13/20 1522 IMPRESSION: Chronic involutional changes of the brain. N.B. : The above information has been verbally conveyed by Eros Chase to Oliver Quintanilla on 07/13/2020 15:14:02 (ET). Electronically Signed: Eros Chase, at 15:15 EDT , Service support , Head/Neck CTA 07/13/20 14:57 IMPRESSION: No significant stenosis is seen. 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 Electronically Signed: Eros Chase, at 15:24 EDT , Service support , Chest X-Ray 07/13/20 16:00 IMPRESSION: Degenerative changes, as described above. No demonstrated acute cardiopulmonary process. Electronically Signed: David Carter MD at 16:16 EDT , Service support , Brain MRI 07/14/20 14:30 IMPRESSION: Right temporal lobe infarct. No hemorrhage. Electronically Signed: David Carter MD at 16:43 EDT , Service support , SOC tele-neurology. Dr. Pettit, critical care. Operations: None Procedures: 2-D Echocardiogram, EKG Summary of Care Provided: Patient seen and examined on the day of discharge and appeared to be stable to be discharged to inpatient rehabilitation unit. Her speech has been getting better every day as well as weakness on the left side. No other complaints. Her vital signs are stable. The patient is a 64 year old F presented to the emergency room because of left-sided body weakness, left arm paresthesia and slurred speech and she was found to have acute right temporal ischemic infarct. Upon arrival to ED, her NIH stroke scale was 9 and she was a candidate for TPA. SOC tele-neurology consulted in the ED and recommended TPA. Patient received TPA in the ED and then she was admitted to intensive care unit. Initial CT scan brain showed no acute infarct or hemorrhage. 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 Her EKG revealed normal sinus rhythm without evidence of acute segment changes or cardiac arrhythmias. MRI brain done after 24 hours of TPA and revealed right temporal lobe infarct and there was no evidence of hemorrhage after patient received TPA. 2D echocardiogram revealed normal LV size and function, ejection fraction was 65%, there was aortic sclerosis, no stenosis, no significant valvular heart disease. Her blood pressure was under control. She did have dysarthria and left-sided hemiparesis. After TPA, power on the left side as well as dysarthria improved. Patient was treated with statins and after 24 hours of TPA, she was started on aspirin. Patient discharged to inpatient rehabilitation unit in a stable medical condition, discharged on aspirin and statins, discharged on her previous home medications without any changes, patient will need PT OT as well as speech therapy, recommended follow-up with PCP in 1 to 2 weeks, she will need follow-up with neurology in 2 to 4 weeks. Patient Problems: Active and Suspected Problems Acute ischemic stroke (Acute) - Physical Exam Vitals/I&O's: Vital Signs Temp Pulse Resp BP Pulse Ox 97.8 F 82 18 111/59 L 94 07/16/20 09:00 07/16/20 09:00 07/16/20 09:00 07/16/20 09:00 07/16/20 09:00 Oxygen Delivery Method Room Air Weight: 179 lb 10.828 oz Body Mass Index (BMI) 31.6 Finger Stick Blood Glucose 125 Intake and Output for Last 24 Hours 07/14/20 07/15/20 07/16/20 23:59 23:59 23:59 Intake Total 2636.66 / 2636.66 720 / 720 0 / 0 Output Total 2215 / 2215 1375 / 1375 225 / 225 Balance 421.66 / 421.66 -655 / -655 -225 / -225 General: Alert, Oriented x3, Cooperative, No apparent distress HEENT: Atraumatic, PERRLA, EOMI, Normocephalic Oral: Moist Mucosa, No Gingival or Mucosal Lesions/ Ulcerations Neck: Supple, No JVD, Negative Carotid Bruits, Trachea Midline, Thyroid Normal Size and Texture Lungs: Clear to auscultation, Normal air movement, No rhonchi, No wheeze, No rales Cardiovascular: Regular rate, Regular Rhythm, Normal S1, Normal S2, PMI Normal Abdomen: Bowel Sounds Present, Soft, Non Tender, Non-Distended, No Hepato-splenomegaly, Obese Extremities: No clubbing, No cyanosis, No edema Skin: No rashes, No breakdown Lymphatic: No Cervical, Supraclavicular, or Inguinal Adenopathy Neurological: Cranial nerves II-XII grossly intact, - - Minimal dysarthria, left upper and lower extremity drift. Psych/Mental Status: Normal Affect, Appropriate, Alert and oriented to time, place, person, mood and affect Current Medications Acetaminophen (Tylenol) 650 mg PO Q6H PRN PRN PRN Reason: Pain Score 1-10/Temp >100.7 Last Admin: 07/14/20 04:13 Dose: 650 mg Documented by: Aripiprazole (Abilify) 2 mg PO DAILY [facility] Last Admin: 07/16/20 09:00 Dose: 2 mg Documented by: Aspirin (Aspirin, Baby) 81 mg PO DAILY@0800 [facility] Last Admin: 07/16/20 09:00 Dose: 81 mg Documented by: Atenolol (Tenormin (Beta Mac)) 25 mg PO DAILY [facility] Last Admin: 07/16/20 09:00 Dose: 25 mg Documented by: Atorvastatin Calcium (Lipitor) 40 mg PO QHS [facility] Last Admin: 07/15/20 21:32 Dose: 40 mg Documented by: Carbidopa/Levodopa (Sinemet) 1 tablet PO TIDAC [facility] Last Admin: 07/16/20 06:23 Dose: 1 tablet Documented by: Cholecalciferol (Vitamin D (25mcg)) 3,000 unit PO DAILY [facility] Last Admin: 07/16/20 09:00 Dose: 3,000 unit Documented by: Clonazepam (Klonopin) 0.5 mg PO BID [facility] Last Admin: 07/16/20 09:00 Dose: 0.5 mg Documented by: Doxazosin Mesylate (Cardura) 1 mg PO QHS [facility] Last Admin: 07/15/20 21:31 Dose: 1 mg Documented by: Gabapentin (Neurontin) 200 mg PO BID [facility] Last Admin: 07/16/20 09:00 Dose: 200 mg Documented by: Hydralazine HCl (Apresoline Iv) 5 mg IV Q30M PRN PRN Reason: to maintain BP goals Labetalol HCl (Trandate) 10 - 20 mg IV Q10M PRN PRN PRN Reason: to Maintain BP Goals Lamotrigine (Lamictal) 200 mg PO BID [facility] Last Admin: 07/16/20 09:00 Dose: 200 mg Documented by: Loratadine (Claritin) 10 mg PO DAILY [facility] Last Admin: 07/16/20 09:00 Dose: 10 mg Documented by: Perphenazine (Perphenazine) 2 mg PO QHS [facility] Last Admin: 07/15/20 21:32 Dose: 2 mg Documented by: Sodium Chloride () 10 - 40 ml IV UD PRN PRN Reason: SALINE FLUSH Last Admin: 07/16/20 09:02 Dose: 10 ml Documented by: Discharge Activity: Return to Normal Activity Weight Bearing Status: Weight bearing as tolerated Call your doctor if you observe: Fever of 101 or Higher, Shortness of breath, Dizziness, Fainting spells, Chest pain, Increased palpitations (irregular heartbeat), Uncontrolled pain Home Medications: Medications to take at Discharge Lamotrigine [Lamictal] 200 mg PO BID 12/13/13 Aripiprazole [Abilify] 2 mg PO DAILY 07/13/20 Atenolol 25 mg PO DAILY 07/13/20 Carbidopa/Levodopa [Carbidopa-Levodopa 25-100 Tab] 1 ea PO TID 07/13/20 Cholecalciferol (VIT D3) [Vitamin D3] 3,000 unit PO DAILY 07/13/20 Clonazepam [Klonopin] 0.5 mg PO BID 07/13/20 Gabapentin [Neurontin] 200 mg PO BID 07/13/20 Loratadine [Claritin] 10 mg PO DAILY 07/13/20 Perphenazine 2 mg PO QHS 07/13/20 Prazosin HCl 1 mg PO QHS 07/13/20 Aspirin [Aspirin, Baby] 81 mg PO DAILY@0800 #90 tab.chew 07/16/20 Atorvastatin Calcium [Lipitor] 40 mg PO QHS #90 tab 07/16/20 Following Prescriptions Were Given to Patient: Aspirin [Aspirin, Baby] 81 mg PO DAILY@0800 #90 tab.chew Prescription Printed Atorvastatin Calcium [Lipitor] 40 mg PO QHS #90 tab Prescription Printed Primary Care Physician: Dorene Whittaker MD [Primary Care Provider] - Please follow up with your Primary Care Physician in: 1-2 WEEK. Disposition: Inpt Rehab Unit/Facility Minutes spent on discharge:: 33 Patient Condition:: Stable Medical Necessity - Tobacco Use Smoking Status: Never smoker Tobacco Use: Non-smoker Meaningful Use Info Meaningful Use Diagnoses (Choose all that apply): Ischemic CVA - CVA Therapy Assessed for PT,OT and/or ST?: Yes - Ischemic Stroke Antithrombotic order at d/c?: Yes Dx of Atrial fib/flutter?: No Anticoagulant at discharge?: No Reason anticoagulant not ordered: Treatment not Indicated Statins at discharge?: Yes Primary Dx Acute Ischemic CVA?: Yes IV tPA ordered during stay?: Yes Inpatient E&M: 65051 Disch Hosp
--- NOTE | 2020-07-16 12:28 | PHA.DC.MR ---
Pharmacy Service has performed discharge medication reconciliation for this patient. The patient's discharge medication list was reviewed for discrepancies and discrepancies were resolved. Home Medications Lamotrigine [Lamictal] 200 mg PO BID 12/13/13 Aripiprazole [Abilify] 2 mg PO DAILY 07/13/20 Atenolol 25 mg PO DAILY 07/13/20 Carbidopa/Levodopa [Carbidopa-Levodopa 25-100 Tab] 1 ea PO TID 07/13/20 Cholecalciferol (VIT D3) [Vitamin D3] 3,000 unit PO DAILY 07/13/20 Clonazepam [Klonopin] 0.5 mg PO BID 07/13/20 Gabapentin [Neurontin] 200 mg PO BID 07/13/20 Loratadine [Claritin] 10 mg PO DAILY 07/13/20 Perphenazine 2 mg PO QHS 07/13/20 Prazosin HCl 1 mg PO QHS 07/13/20 Aspirin [Aspirin, Baby] 81 mg PO DAILY@0800 #90 tab.chew 07/16/20 Atorvastatin Calcium [Lipitor] 40 mg PO QHS #90 tab 07/16/20
--- NOTE | 2020-07-16 12:33 | NURSING ---
Report called to GERARDO Christianson in Rehab. Okay to send patient up in about an hour and okay to leave IV in.
--- NOTE | 2020-07-16 12:40 | NURSING ---
Notified , Neto that patient will be going to inpatient rehab today in about an hour. Visiting hours start at 1600 on rehab.
--- NOTE | 2020-07-16 13:10 | CHAPLAIN ---
Type of Pastoral Visit ___ Initial Visit _x__ Follow-up Visit ___ On-call Visit ___ General Patient Visit ___ Spiritual Assessment ___ Family Conference ___ Bereavement ___ Rapid Response ___ Code Blue ___ Other (describe below) Pastoral Care Referral From _x__ Patient ___ Family ___ Nurse ___ Physician ___ Farrowing Worker ___ Wheelchair Van Operator First Responder ___ Other (describe below) Sacrament/Intervention _x__ Active listening ___ Anointing ___ Rastafari ___ Bereavement ___ Communion ___ Janine exploration ___ ___ Life review _x__ Prayer ___ Reconciliation ___ Sacrament of Sick _x__ Supportive presence ___ Wedding ___ Other (describe below) Pastoral Comments patient is talkative; pt is showing some improvements and describes this and her feelings of hope that things will be better; pt is going to Rehab today and expresses thankfulness for this step in right direction; pt requests prayer support and future visits
== END 2020-07-16 14:45 | DRG 62 ==
LOC: ED 15:35 → ICU 07-14 07:12 → PCU 07-15 08:10
PROVIDERS: Emergency Provider Emergency Medicine; PCP Family Medicine; Visit Provider Hospitalist
DX: I63.9 Cerebral infarction, unspecified (principal); G81.94 Hemiplegia, unspecified affecting left nondominant side; M79.7 Fibromyalgia; F41.9 Anxiety disorder, unspecified; E78.5 Hyperlipidemia, unspecified; I10 Essential (primary) hypertension; R47.1 Dysarthria and anarthria; Z79.899 Other long term (current) drug therapy; E66.09 Other obesity due to excess calories; Z68.31 Body mass index [BMI] 31.0-31.9, adult; F32.9 Major depressive disorder, single episode, unspecified; R29.709 NIHSS score 9; J30.2 Other seasonal allergic rhinitis; I70.0 Atherosclerosis of aorta; G89.4 Chronic pain syndrome
CPT/HCPCS: 70450; 70496; 70498; 70551; 71045; 80048; 80061; 82962; 84484; 85025; 85610; 85730; 92507; 92523; 92526; 92610; 93005; 93306; 97112; 97162; 97166; 97802; 99283; J2997; J7030; Q9967; A4216

== ENCOUNTER 2020-07-16 14:51 | Inpatient (IN) | payer OTHER, SELFPAY ==
[2020-07-16 00:31] VITALS: BMI 31.6
[2020-07-16 15:22] VITALS: BP 119/82; PULSE 73; RESP 18; TEMP 36.9; O2SAT 94; BMI 31.1
[2020-07-16 19:33] VITALS: O2SAT 93
[2020-07-16 20:05] VITALS: BP 131/76; PULSE 80; RESP 18; TEMP 36.6; O2SAT 96
--- NOTE | 2020-07-16 21:04 | HP.PCM_ITS ---
Problem List (1) Debility Status: Acute (2) Stroke Status: Acute (3) Left hemiparesis Status: Acute (4) Muscle spasm Status: Chronic (5) Fibromyalgia Status: Chronic (6) Anxiety Status: Chronic (7) Chronic back pain Status: Chronic (8) Hyperlipidemia Status: Chronic (9) Hypertension Status: Chronic History of Present Illness Date of Admission: 07/16/20 Chief Complaint: Here for greater than 3 hours daily rehabilitation, strengthening, prior to discharge home with . 07/13/20 The patient is a 64 year old Female with below past medical history presented to [facility] Emergency Department with neurologic signs and symptoms. 07/13/20 Echo Left ventricular systolic function normal. EF 65%. 07/13/20 CT head showed chronic involutional changes of brain. 07/13/20 EKG sinus rhythm, first degree AV block, inferior infarct, age undetermined, cannot be excluded. 07/13/20 CTA head, neck no significant stenosis, right anterior communicating artery hypoplasia. 07/13/20 Chest X-ray negative. Presented with left paresthesia, left arm weakness, left leg weakness, slurred speech, difficulty ambulating. Stroke team called, tPA given. 07/13/20 Admit to ICU. Monitor after tPA. 07/14/20 MRI brain acute right temporal infarct. Blood pressure controlled. After tPA, left sided weakness improved, dysarthria improved. Treated with statin, aspirin added 24 hours after tPA. 07/16/2020 Admit to for greater than 3 hours daily rehabilitation, strengthening, prior to discharge home with . Past Medical History Past Medical History (Chronic Problems): Chronic Problems Muscle spasm (Chronic) Fibromyalgia (Chronic) Anxiety (Chronic) Chronic back pain (Chronic) Hyperlipidemia (Chronic) Hypertension (Chronic) Allergies buprenorphine HCl [From Suboxone] Allergy (Verified 07/13/20 15:13) Anaphylaxis erythromycin base [Erythromycin Base] Allergy (Verified 07/13/20 17:12) unsure naloxone HCl [From Suboxone] Allergy (Verified 07/13/20 15:13) Anaphylaxis Home Medications: Ambulatory Orders Medication Instructions Recorded Lamotrigine [Lamictal] 200 mg PO BID 12/13/13 Aripiprazole [Abilify] 2 mg PO DAILY 07/13/20 Atenolol 25 mg PO DAILY 07/13/20 Carbidopa/Levodopa 1 ea PO TID 07/13/20 [Carbidopa-Levodopa 25-100 Tab] Cholecalciferol (VIT D3) [Vitamin 3,000 unit PO DAILY 07/13/20 D3] Clonazepam [Klonopin] 0.5 mg PO BID 07/13/20 Gabapentin [Neurontin] 200 mg PO BID 07/13/20 Loratadine [Claritin] 10 mg PO DAILY 07/13/20 Perphenazine 2 mg PO QHS 07/13/20 Prazosin HCl 1 mg PO QHS 07/13/20 Aspirin [Aspirin, Baby] 81 mg PO DAILY@0800 07/16/20 Atorvastatin Calcium [Lipitor] 40 mg PO QHS 07/16/20 Surgical History: mastectomy, - - Neck surgery. 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 END LATHE OPERATOR history Lives: Spouse/ Significant Other Smoking Status: Never smoker Tobacco Use: Non-smoker Alcohol: None Drugs: None - *Family History Maternal History Items: - - no CVA Paternal History Items: No pertinent history Review of Systems Constitutional: Denies: Chills, Fever, Weight Change HEENT: Denies: Head Aches, Sinus Congestion, Sinus Drainage Cardiovascular: Denies: Chest Pain, Palpitations Respiratory: Denies: Cough, Shortness of breath at rest, Sputum production Gastrointestinal: Denies: Abdominal Pain, Nausea, Vomiting Genitourinary: Denies: Dysuria Musculoskeletal: Denies: Joint Pain, Joint Tenderness Skin: Denies: Rash, Wounds Neurological: Denies: Numbness, Tingling, Focal weakness Psychiatric: Denies: Anxiety, Depression, Homicidal Ideations, Suicidal Ideations Hematologic/ Lymphatic: Denies: Easy Bruising, Easy Bleeding VTE Information - Inpt Only VTE Present on Admission: No VTE Mechan Device Prophylaxis: Knee High MECHELLE Hose VTE Pharm Prophylaxis ordered?: No Reason prophylaxis not ordered:: Treatment Not Indicated Patient Problems: Active and Suspected Problems Debility (Acute) Stroke (Acute) Left hemiparesis (Acute) - Physical Exam Vitals/I&O's: Vital Signs Temp Pulse Resp BP Pulse Ox 97.9 F 80 18 131/76 H 96 07/16/20 20:05 07/16/20 20:05 07/16/20 20:05 07/16/20 20:05 07/16/20 20:05 Oxygen Delivery Method Room Air Weight: 82.3 kg Body Mass Index (BMI) 31.1 Finger Stick Blood Glucose 125 Intake and Output for Last 24 Hours 07/14/20 07/15/20 07/16/20 23:59 23:59 23:59 Intake Total 240 / 240 Balance 240 / 240 General: Alert, Oriented x3, Cooperative HEENT: Atraumatic, PERRLA, EOMI, Normocephalic Neck: Supple, No JVD, Negative Carotid Bruits Lungs: Clear to auscultation, Normal air movement Cardiovascular: Regular rate, No murmurs Abdomen: Bowel Sounds Present, Soft, Non Tender Extremities: No edema, Capillary Refill Less than 3 Seconds Skin: No rashes, No breakdown Musculoskeletal: No Tenderness to Palpation of Joints or Extremities Neurological: Cranial nerves II-XII grossly intact, - - Left hemiparesis. Psych/Mental Status: Normal Affect, Appropriate Current Medications Aripiprazole (Abilify) 2 mg PO DAILY [facility] Aspirin (Aspirin, Baby) 81 mg PO DAILY@0800 [facility] Atenolol (Tenormin (Beta Mac)) 25 mg PO DAILY [facility] Atorvastatin Calcium (Lipitor) 40 mg PO QHS [facility] Bisacodyl (Dulcolax) 10 mg RECTAL .PRN X 1 PRN PRN Reason: Constipation Carbidopa/Levodopa (Sinemet) 1 tablet PO TIDAC [facility] Last Admin: 07/16/20 18:43 Dose: Not Given Documented by: Cholecalciferol (Vitamin D (25mcg)) 3,000 unit PO DAILY [facility] Clonazepam (Klonopin) 0.5 mg PO BID [facility] Doxazosin Mesylate (Cardura) 1 mg PO QHS [facility] Last Admin: 07/16/20 18:44 Dose: Not Given Documented by: Lamotrigine (Lamictal) 200 mg PO BID [facility] Loratadine (Claritin) 10 mg PO DAILY [facility] Magnesium Hydroxide (Milk Of Magnesia) 30 ml PO .PRN X 1 PRN PRN Reason: Constipation Perphenazine (Perphenazine) 2 mg PO QHS [facility] Senna/Docusate Sodium (Senokot-S, Jacey-Colace) 2 tablet PO BID [facility] Assessment/Plan All Active Problems Debility (Acute) Stroke (Acute) Left hemiparesis (Acute) Acute ischemic stroke (Acute) 64 year old female with below past medical history hospitalized for stroke, tPA given, admitted to for greater than 3 hours daily rehabilitation, strengthening, prior to discharge home with . * Debility - PT/OT. * Dysarthria - ST. * Pain - Tylenol 1000MG Q6H PRN pain (1-10). * Bowel - Senna/colace 2 tablets BID, MOM 30ML PO PRN, Dulcolax 10MG LA daily PRN. * Depression - Abilify 2MG daily, Perphenazine 2MG QHS. * Stroke - Aspirin 81MG daily. * Hypertension - Atenolol 25MG daily. * Hyperlipidemia - Atorvastatin 40MG QHS. * Parkinson Disease - Sinemet 25/100MG TIDAC. * Vitamin D deficiency - D3 3000IU daily. * Anxiety - Clonazepam 0.5MG twice daily. * Urinary retention - Doxazosin 1MG QHS. * Neuropathic pain - Gabapentin 200MG BID, Lamictal 200MG BID. * Allergic Rhinitis - Loratadine 10MG daily.
[2020-07-16] MEDS: Senna/Docusate Sodium 1 Tablet 2 TABLET PO (21:43)
[2020-07-16] MEDS: Atorvastatin Calcium 40 MG Tablet PO (21:43)
[2020-07-16] MEDS: Doxazosin 1 MG Tablet PO (21:44)
[2020-07-16] MEDS: lamoTRIgine 100 MG Tablet 200 MG PO (21:44)
[2020-07-16] MEDS: clonazePAM 0.5 MG Tablet PO (21:44)
[2020-07-17 05:00] VITALS: BMI 31.1
[2020-07-17 05:35] LABS: Absolute Neutrophil Count 5.5 X10^3/uL (2.0-7.7); Basophil# 0.04 X10^3/uL; Basophil% 0.4 % (0-1); Eosinophil# 0.43 X10^3/uL; Eosinophils% 4.4 % (0-5); Hematocrit 42.4 % (37-47); Hemoglobin 13.6 g/dL (12.0-15.0); Lymphocyte % 28.9 % (19-41); Mean Corp Hgb Conc 32.1 g/dL (32-36); Mean Corpuscular Hgb 28.6 pg (27.0-32.0); Mean Corpuscular Volume 89.1 fL (81-99); Mean Platelet Vol. 9.2 fl (6.2-12.0); Monocyte# 0.84 X10^3/uL; Monocyte% 8.7 % (0-10); NRBC Flagged by Analyzer 0 % (0-5); Neutrophil # 5.54 X10^3/uL (2.7-7.7); Neutrophil % 57.3 % (47-70); Platelet Count 230 K/mm3 (150-450); RBC Distribution Width CV 12.6 % (11.6-14.6); RBC Distribution Width SD 41.5 fl (35.1-43.9); Red Blood Count 4.76 M/mm3 (4.2-5.4); White Blood Count 9.7 K/mm3 (4.4-11.0)
[2020-07-17 05:51] LABS: ALB/GLOB Ratio 0.8 RATIO (0.9-2.4); AST(SGOT) 65 U/L (15-37); Alanine Aminotransfer ALT/SGPT 42 U/L (13-56); Albumin, Serum 3.4 g/dL (3.2-5.0); Alkaline Phosphatase 119 U/L (45-117); Anion Gap 5 (5-15); BUN 17 mg/dL (7-18); BUN/Creat Ratio 15.9 RATIO (10-20); Calcium,Total 9.1 mg/dL (8.5-10.1); Chloride 107 mmol/L (98-107); Creatinine, Serum 1.07 mg/dL (0.55-1.02); EST Glomerular Filtration Rate 55 mL/min (>60); Est Glom Filt Rate - Afr Amer 66 mL/min (>60); Estimated Creatinine Clearance 45.87 ml/min; Globulin 4.1 g/dL (2.2-4.2); Glucose 91 mg/dL (74-106); Magnesium 2.5 mg/dL (1.6-2.6); Phosphorus 3.8 mg/dL (2.5-4.9); Protein, Total 7.5 g/dL (6.4-8.2); Sodium Level 137 mmol/L (136-145)
[2020-07-17] MEDS: Carbidopa/Levodopa 25/100 Tablet PO ×3 (06:06→16:15)
--- NOTE | 2020-07-17 07:25 | NURSING ---
DR RAE INFORMED OF PT'S REDDENED AND SORE AC AREAS TO BILAT ARMS. ORDERS GIVEN.
[2020-07-17 07:32] VITALS: BP 138/78; PULSE 71; RESP 16; TEMP 36.6; O2SAT 93
[2020-07-17 07:49] VITALS: O2SAT 94
[2020-07-17] MEDS: Aspirin 81 MG TAB.CHEW PO (08:01)
[2020-07-17] MEDS: lamoTRIgine 100 MG Tablet 200 MG PO ×2 (08:06→20:33)
[2020-07-17] MEDS: Loratadine 10 MG Tablet PO (08:06)
[2020-07-17] MEDS: Gabapentin 100 MG Capsule 200 MG PO ×2 (08:06→16:15)
[2020-07-17] MEDS: Atenolol 25 MG Tablet PO (08:07)
[2020-07-17] MEDS: ARIPiprazole 2 MG Tablet PO (08:07)
[2020-07-17] MEDS: clonazePAM 0.5 MG Tablet PO ×2 (08:09→20:34)
--- NOTE | 2020-07-17 11:55 | CASEMGMT ---
Social Work Completed PHQ-9 with patient. Score: 22/27. Patient is active with a [facility] and [facility]. SW will schedule f/u appt at [place]. Pt states meds are effective but to notify nursing or SW if she reports needing an increase for to contact psych for possible adjustment. Will continue to follow. Rosie Jackson, SECURITY OPERATIONS MANAGER BILINGUAL MEDICAL RECEPTIONIST
[2020-07-17 13:44] VITALS: BMI 31.1
--- NOTE | 2020-07-17 14:16 | REHABEVAL_ITS ---
Admission Information Primary Diagnosis:: Right temporal lobe infarct, Left hemiparesis. Status Changes from Prescreening?: No changes Identified Actual Problem List:: Falls, Cognitve Impr/Memory Loss, Depression, Mobility Impaired, Self Care Deficit Potential Problem List:: DVT, Bleeding, Infection, UTI, Aspiration, Falls, Skin Integrity, Depression Risk of Complications DVT: LMWH, MECHELLE Hose, Sequential Compression Device Bleeding: Monitor Lab Values, Nursing to Teach Precautions for anti-coagulation therapy., Wound, if applicable, to be assessed every shift., Stroke patients assessed for lethargy or change in status. Infection: Clinical Staff to Monitor for S/S of infection:, S/S of infection include fever, redness, warmth, etc. Urinary Tract Infection: Monitor for frequency, burning, discomfort, or incontinence., Nursing will obtain urine sample for urinalysis and C&S when ordered. Aspiration: Clinical staff will monitor for coughing, drooling, congestion., Speech will evaluate swallowing and dsyphasia., Nursing will monitor patient swallowing during meals. Falls: Patient will be evaluated for Fall Precautions, Patient will be placed on Fall Precautions as indicated per protocol. Skin Breakdown: Nursing will assess skin daily using assessment tool., Nursing will place on Skin Breakdown Precautions as indicated. Pain: Clinical staff will assess patient's pain level per protocol., Medications will be given, if needed, and the pain level reassessed., Other methods: Massage, distraction, decrease stimulus, etc. used PRN. Plan of Care Patient requires physician specializing in physical medicine and rehab oversight to provide close medical supervision of rehab issues including: Pain Management, Sleep Problems, Bowel and Bladder, Medical and co-morbidity Management, DVT prophylaxis, Rehabilitation Leadership, Coordination of treatment team Patient needs Physical Therapy: For a minimum of 1 hour, At least 5 out of 7 days Patient needs Physical Therapy to improve:: Mobility, Mobility, Mobility, Strengthening, Transfers, Stretching, ROM, Endurance, Stairs, Gait, Balance Patient needs Occupational Therapy: For a minimum of 1 hour, At least 5 out of 7 days Patient needs Occupational Therapy to improve ADL's incl.: Eating, Grooming, Bathing, Dressing, Toileting, Toilet transfers, Community Reintegration, Higher functioning activities, Household tasks, Adaptive Equipment, Splinting, Other activities as determined Patient requires speech therapy: For a minimum of 1 hour, At least 5 out of 7 days Patient requires speech therapy for: Swallowing, Cognition, Language Skills, Compensatory Strategies Patient requires 24/ Rehabilitation Nursing for: Pain Issues, Identifying and preventing risk factors, Monitoring and reporting current medical conditions, Assisting with ambulation, transfer, and all ADL's, Teaching patients about disease process and medications, Family teaching, Providing safe environment, Bowel and Bladder Issues, Skin integrity, Medication Management Patient needs Packaging Operator/ Case Management for: Discharge Planning, Arranging Home Equipment or Services, Family Interventions Patient needs Dietary and Nutrition Services for: Adequate Nutrition, Nutritional Supplements, Nutritional Education Goals Patient will complete transfers from bed to chair at: MOD I level of assist. Patient will ambulate: with MOD I assist, with LRD, - - 350 feet Patient will complete upper body dressing at: MOD I level of assist. Patient will complete lower body dressing at: MOD I level of assist. Patient will complete toileting at: - - Distant supervision. Patient will perform bathing at: - - Supervision. Patient will complete grooming at: MOD I level of assist. Patient will achieve: with standby assist, - - 4 steps. Discharge Planning Pt Prognosis for Sig. Practical Improv. w/in Reasonable Time: Good Anticipated D/C Destination: Home w/ family or friends Was Preadmission Assessment Accurate?: Yes
[2020-07-17 19:25] VITALS: BP 144/66; PULSE 77; RESP 16; TEMP 36.4; O2SAT 95
[2020-07-17] MEDS: Atorvastatin Calcium 40 MG Tablet PO (20:33)
[2020-07-17] MEDS: Doxazosin 1 MG Tablet PO (20:34)
[2020-07-18 05:00] VITALS: BMI 31.1
[2020-07-18] MEDS: Carbidopa/Levodopa 25/100 Tablet PO ×3 (06:29→16:09)
[2020-07-18 07:30] VITALS: O2SAT 94
[2020-07-18] MEDS: Gabapentin 100 MG Capsule 200 MG PO ×2 (07:43→16:09)
[2020-07-18] MEDS: ARIPiprazole 2 MG Tablet PO (07:43)
[2020-07-18] MEDS: Atenolol 25 MG Tablet PO (07:43)
[2020-07-18] MEDS: Loratadine 10 MG Tablet PO (07:43)
[2020-07-18] MEDS: Aspirin 81 MG TAB.CHEW PO (07:43)
[2020-07-18] MEDS: lamoTRIgine 100 MG Tablet 200 MG PO ×2 (07:44→21:26)
[2020-07-18] MEDS: clonazePAM 0.5 MG Tablet PO ×2 (07:46→21:35)
[2020-07-18 08:07] VITALS: BP 126/71; PULSE 74; RESP 16; TEMP 36.6; O2SAT 96
[2020-07-18 11:02] VITALS: BMI 31.1
[2020-07-18 19:10] VITALS: BP 133/71; PULSE 82; RESP 16; TEMP 36.8; O2SAT 98
[2020-07-18 21:15] VITALS: BMI 31.1
[2020-07-18] MEDS: Atorvastatin Calcium 40 MG Tablet PO (21:26)
[2020-07-18] MEDS: Acetaminophen 500 MG Tablet 1000 MG PO (21:26)
[2020-07-18] MEDS: Doxazosin 1 MG Tablet PO (21:26)
[2020-07-18 22:00] VITALS: PULSE 95; RESP 16
[2020-07-19] MEDS: Carbidopa/Levodopa 25/100 Tablet PO ×3 (06:51→16:00)
[2020-07-19 07:31] VITALS: BP 131/67; PULSE 69; RESP 16; TEMP 36.6; O2SAT 98
[2020-07-19] MEDS: lamoTRIgine 100 MG Tablet 200 MG PO ×2 (07:47→21:07)
[2020-07-19] MEDS: ARIPiprazole 2 MG Tablet PO (07:47)
[2020-07-19] MEDS: Loratadine 10 MG Tablet PO (07:47)
[2020-07-19] MEDS: Gabapentin 100 MG Capsule 200 MG PO ×2 (07:48→16:00)
[2020-07-19] MEDS: clonazePAM 0.5 MG Tablet PO ×2 (07:48→21:06)
[2020-07-19] MEDS: Aspirin 81 MG TAB.CHEW PO (07:48)
[2020-07-19] MEDS: Atenolol 25 MG Tablet PO (07:48)
[2020-07-19 11:02] VITALS: BMI 31.1
[2020-07-19 19:37] VITALS: BP 143/67; PULSE 82; RESP 17; TEMP 36.6; O2SAT 97
[2020-07-19 20:59] VITALS: BMI 31.1
[2020-07-19] MEDS: Doxazosin 1 MG Tablet PO (21:06)
[2020-07-19] MEDS: Atorvastatin Calcium 40 MG Tablet PO (21:06)
[2020-07-19 22:00] VITALS: PULSE 80; RESP 16
[2020-07-20] MEDS: Carbidopa/Levodopa 25/100 Tablet PO ×3 (06:03→16:18)
[2020-07-20] MEDS: ARIPiprazole 2 MG Tablet PO (07:48)
[2020-07-20] MEDS: Gabapentin 100 MG Capsule 200 MG PO ×2 (07:48→16:18)
[2020-07-20] MEDS: Loratadine 10 MG Tablet PO (07:48)
[2020-07-20] MEDS: Atenolol 25 MG Tablet PO (07:48)
[2020-07-20] MEDS: lamoTRIgine 100 MG Tablet 200 MG PO ×2 (07:48→21:28)
[2020-07-20] MEDS: Aspirin 81 MG TAB.CHEW PO (07:48)
[2020-07-20] MEDS: clonazePAM 0.5 MG Tablet PO ×2 (07:53→21:26)
[2020-07-20 08:44] VITALS: BP 123/85; PULSE 96; RESP 16; TEMP 36.4; O2SAT 96
[2020-07-20 08:59] VITALS: BMI 31.1
[2020-07-20] MEDS: Acetaminophen 500 MG Tablet 1000 MG PO (17:59)
[2020-07-20 19:47] VITALS: BP 141/76; PULSE 75; RESP 16; TEMP 36.4; O2SAT 98
[2020-07-20 21:23] VITALS: BMI 31.1
[2020-07-20] MEDS: Atorvastatin Calcium 40 MG Tablet PO (21:28)
[2020-07-20] MEDS: Doxazosin 1 MG Tablet PO (21:28)
[2020-07-20 22:00] VITALS: PULSE 75; RESP 16
[2020-07-21] MEDS: Carbidopa/Levodopa 25/100 Tablet PO ×3 (06:08→16:20)
[2020-07-21] MEDS: Acetaminophen 500 MG Tablet 1000 MG PO ×2 (06:16→21:51)
[2020-07-21] MEDS: Atenolol 25 MG Tablet PO (07:44)
[2020-07-21] MEDS: Loratadine 10 MG Tablet PO (07:44)
[2020-07-21] MEDS: lamoTRIgine 100 MG Tablet 200 MG PO ×2 (07:44→21:51)
[2020-07-21] MEDS: Aspirin 81 MG TAB.CHEW PO (07:44)
[2020-07-21] MEDS: ARIPiprazole 2 MG Tablet PO (07:45)
[2020-07-21] MEDS: clonazePAM 0.5 MG Tablet PO ×2 (07:45→21:52)
[2020-07-21] MEDS: Gabapentin 100 MG Capsule 200 MG PO ×2 (07:45→16:20)
[2020-07-21 10:00] VITALS: BP 130/82; PULSE 72; RESP 16; TEMP 36.5; O2SAT 94
[2020-07-21 10:32] VITALS: BMI 31.1
--- NOTE | 2020-07-21 12:57 | PCM.PN.BLA ---
Progress Note Afebrile VSS Maintaining appropriate oxygen saturation on RA Oral intake is fair Discussed with nursing - no problems that need addressed Reviewed the PT/OT/ST notes Medication list reviewed. History and physical at admission was reviewed. Pt also tells me that she is bipolar. She feels that her anxiety is not adequately controlled. She has seen Dr. Rey in the past for neurology. She tells me that all testing was normal, including neurocognitive functioning. She is on Sinemet even though she states that everything was normal. She has a tremor that comes and goes....R hand and both feet.....this stops when she is distracted. She is admitted to the rehab unit for R temporal ischemic CVA. she received TPA. No prior hx of stroke. The Echo showed a normal R and L atria. EF is normal. No significant valvular heart disease. CTA of the head and the neck showed no significant stenosis. MRI showed a R temporal infarct ith no hemorrhage. I reviewed the teleneurology consult. LDL was 89 on Simvastatin 40 mg and she was converted to Lipitor 40 mg Q HS. She tells me that he has trouble word finding a few times a day. States Sinemet has not helped the tremors. She is perseverating on when she is going home and if the insurance company will make her go home if she does not feel she is well enough. She is also perseverating on the fact that her is retired but continues to work and is not home to take care of her. She would like him to be home so that she can talk to him, he can do the chores around the house that need to be done and help care for her. Alert, oriented X3 MM are moist with no mucosal lesions No facial asymmetry Lungs - CTA HRRR, no gallop abd - soft and NT she is shaking both feet and the R hand is tremulous. The tremors stop when she is moving the R UE and when she is distracted the shaking of her feet goes away. I did not notice any significant dysarthriA. Impressions 1. debility due to recent ischemic CVA R temporal lobe. She did receive TPA in the ED. Not sure that all the debility she currently has is acute. I suspect there is considerable psychosocial overlay at play. I suspect she was quite limited in her exercise tolerance prior to the stroke. 2. BPD- has been following at the [facility] for many years. She is on multiple psych meds including Perphenazine, Lamictal, Klonopin and Abilify (low dose of 2 mg). Will need to request the notes from the [facility] about her functional status and how she has been doing on the current medications. 3. cognitive dysfunction that seems to predate the CVA. will request the results of the neurocognitive testing she had recently and the neurologists notes. 4. tremors. I do not feel that she has PD. The sinemet has not helped with the tremors and my suspicion is that the tremors are due to anxiety. Obtain records from Dr. Nunez and Dr. Whittaker. Obtain records from the counselling center. I suspect she can do more than she is currently doing and that not all the disability she currently demonstrates is due to the CVA.......I suspect a lot of this may be psychiatric. She wants her to be home and not working and she wants to make sure we keep her until SHE feels she is ready to go home. After I review the records of the [facility] I will contact her shoe caser to discuss the anxiety and if medication adjustment is needed. STROKE Vital Signs/Narrative: Vital Signs Temp Pulse Resp BP Pulse Ox 07/21/20 10:00 97.7 F L 72 16 130/82 H 94 Inpatient E&M: 35469 Subs Hosp L2
--- NOTE | 2020-07-21 13:26 | CASEMGMT ---
Social Work IDT met with patient for Team meeting. Discussed patient's progress in therapy. Pt is SBA to CGA for walking w/o device on multiple surfaces over 200 ft. Pt is [facility] for bathing, toileting, LE dressing, set up fro UE dressing. ST is working on speech intelligibility, word finding. Pt is suspected to have underlying neurological condition - physician requested records from Neurologist. Pt has tremors in right hand and leg. Pt does live at home with but he is still working during the day, despite being retired. Pt reported to having dx of bipolar with depression and anxiety and medications are effective. Pt expressed did not enjoy being home alone as she likes to talk with others. At DC will f/u with [facility] if their services have restarted due to COVID for increased socialization for pt. Pt's biggest barrier for DC is cognition and her concern with being home alone. Explained insurance update 07/27 and continued stay is not guaranteed. SW to assist with DC plans. Will continue to follow and Reteam next week. Rosie Jackson, ADOPTION MANAGER GEOLOGICAL SCOUT
[2020-07-21 19:00] VITALS: BP 124/61; PULSE 72; RESP 16; TEMP 36.7; O2SAT 96
[2020-07-21] MEDS: Doxazosin 1 MG Tablet PO (21:51)
[2020-07-21] MEDS: Atorvastatin Calcium 40 MG Tablet PO (21:51)
[2020-07-22 04:02] VITALS: BMI 31.1
[2020-07-22] MEDS: Carbidopa/Levodopa 25/100 Tablet PO ×3 (06:32→16:14)
[2020-07-22] MEDS: Aspirin 81 MG TAB.CHEW PO (07:46)
[2020-07-22] MEDS: Gabapentin 100 MG Capsule 200 MG PO ×2 (07:46→16:15)
[2020-07-22] MEDS: Atenolol 25 MG Tablet PO (07:46)
[2020-07-22] MEDS: lamoTRIgine 100 MG Tablet 200 MG PO ×2 (07:46→21:04)
[2020-07-22] MEDS: ARIPiprazole 2 MG Tablet PO (07:46)
[2020-07-22] MEDS: clonazePAM 0.5 MG Tablet PO ×2 (07:46→21:03)
[2020-07-22] MEDS: Loratadine 10 MG Tablet PO (07:46)
[2020-07-22 07:51] VITALS: BP 146/75; PULSE 68; RESP 18; TEMP 36.4; O2SAT 96
--- NOTE | 2020-07-22 11:43 | PN_ITS ---
Progress Note Afebrile Vital signs stable Maintaining appropriate oxygen saturation on room air Adequate oral intake Records were obtained from Dr. Dorene Whittaker. These records included progress notes from the neurologist, report of a CT brain and nerve conduction studies of the LE's. Nerve conduction studies had a mild R peroneal decrease in amplitude. The neurocognitive testing was WNL. CT brain was unchanged from previous studies. She was placed on Sinemet for mild masked facies, slow performance of rapid alternating movements and tremor? She was placed on Gabapentin for paresthesias. Tremor and cognitive dysfunction has not changed with the addition of these meds to the drug regimen. I requested the records from the counselling center but, I have not received the records yet. Tremor to me is more consistent with essential tremor......it increases with anxiety and it goes away when she is distracted. Alert, oriented X 3 Lungs - CTA HRRR without ectopy abd - soft and NT no facial droop, trace weakness on the left side tearful at times when we are talking. Impressions 1. post stroke disability/debility 2. cognitive dysfunction with normal neurocognitive testing. Suspect due to multiple ASSEMBLER GARMENT FORM depressant medications. 3. Suspected Parkinsonism and not PD - Sinemet is not known to be very helpful in Parkinsonism...consider discontinuing 4. Essential tremor - increased with anxiety 5. BPD on Lamictal, Perphenazine and Abilify 6. fibromyalgia 7. L lateral thigh paresthesia with mild R peroneal decrease in ampli tude....started on Gabapentin with non improvement but with increased trouble word finding Consider discontinuing Gabapentin, Prazocin, Loratidine and Sinemet Continue PT/OT and ST Continue ASA, statin, atenolol needs LFT's and lipid panel in 6 weeks since she has been transitioned from Simvastatin 40 mg to Lipitor 40 mg. Encouraged weight loss STROKE Vital Signs/Narrative: Vital Signs Temp Pulse Resp BP Pulse Ox 07/22/20 07:51 97.6 F L 68 18 146/75 H 96 Inpatient E&M: 35614 Subs Hosp L2
[2020-07-22] MEDS: Acetaminophen 500 MG Tablet 1000 MG PO ×2 (13:45→21:04)
[2020-07-22 13:49] VITALS: BMI 31.1
[2020-07-22 20:30] VITALS: BP 114/68; PULSE 79; RESP 18; TEMP 37; O2SAT 96
[2020-07-22 21:00] VITALS: PULSE 79; RESP 18; O2SAT 96; BMI 31.1
[2020-07-22] MEDS: Doxazosin 1 MG Tablet PO (21:04)
[2020-07-22] MEDS: Atorvastatin Calcium 40 MG Tablet PO (21:04)
--- NOTE | 2020-07-23 04:34 | NURSING ---
REVIEWED AND AGREE WITH LEASE ATTENDANT'S FUNCTIONAL ASSESSMENT AND HANDOFF CHARTING.
[2020-07-23] MEDS: Acetaminophen 500 MG Tablet 1000 MG PO ×2 (06:20→21:42)
[2020-07-23] MEDS: Carbidopa/Levodopa 25/100 Tablet PO ×3 (06:20→15:41)
[2020-07-23 07:50] VITALS: BP 133/71; PULSE 67; RESP 17; TEMP 36.4; O2SAT 98
[2020-07-23] MEDS: Atenolol 25 MG Tablet PO (07:55)
[2020-07-23] MEDS: lamoTRIgine 100 MG Tablet 200 MG PO ×2 (07:55→21:49)
[2020-07-23] MEDS: Gabapentin 100 MG Capsule 200 MG PO ×2 (07:55→17:19)
[2020-07-23] MEDS: ARIPiprazole 2 MG Tablet PO (07:55)
[2020-07-23] MEDS: Loratadine 10 MG Tablet PO (07:55)
[2020-07-23] MEDS: Aspirin 81 MG TAB.CHEW PO (07:55)
[2020-07-23] MEDS: clonazePAM 0.5 MG Tablet PO ×2 (08:03→21:49)
[2020-07-23] MEDS: Senna/Docusate Sodium 1 Tablet 2 TABLET PO (08:43)
--- NOTE | 2020-07-23 11:41 | PCM.PN.BLA ---
Progress Note Afebrile VSS Maintaining appropriate oxygen saturation on RA Oral intake is [] Discussed with nursing - no problems that need addressed Reviewed the PT/OT/ST notes Medication list reviewed. Increase the arthritic compound cream to 3 times daily Increase Marinol to 2.5 mg p.o. twice daily Continue PT/OT STROKE Vital Signs/Narrative: Vital Signs Temp Pulse Resp BP Pulse Ox 07/23/20 07:50 97.5 F L 67 17 133/71 H 98
[2020-07-23 15:30] VITALS: BMI 31.1
--- NOTE | 2020-07-23 15:43 | CHAPLAIN ---
Type of Pastoral Visit ___ Initial Visit _x__ Follow-up Visit ___ On-call Visit ___ General Patient Visit ___ Spiritual Assessment ___ Family Conference ___ Bereavement ___ Rapid Response ___ Code Blue ___ Other (describe below) Pastoral Care Referral From _x__ Patient ___ Family ___ Nurse ___ Physician ___ Child Welfare Consultant ___ Premium Representative ___ Other (describe below) Sacrament/Intervention _x__ Active listening ___ Anointing ___ Sabianism ___ Bereavement ___ Communion ___ Janine exploration ___ _x__ Life review _x__ Prayer ___ Reconciliation ___ Sacrament of Sick _x__ Supportive presence ___ Wedding ___ Other (describe below) Pastoral Comments patient appears to be making improvements and agrees with the statement; pt is talkative; pt discusses family with this patient; pt welcomes prayer support and presence of this histology tech
[2020-07-23 19:35] VITALS: BP 145/72; PULSE 70; RESP 18; TEMP 36.4; O2SAT 97
[2020-07-23] MEDS: Doxazosin 1 MG Tablet PO (21:49)
[2020-07-23] MEDS: Atorvastatin Calcium 40 MG Tablet PO (21:50)
[2020-07-23 22:00] VITALS: BMI 31.1
[2020-07-24] MEDS: Carbidopa/Levodopa 25/100 Tablet PO ×2 (06:41→11:06)
[2020-07-24] MEDS: ARIPiprazole 2 MG Tablet PO (07:56)
[2020-07-24] MEDS: Loratadine 10 MG Tablet PO (07:56)
[2020-07-24] MEDS: Aspirin 81 MG TAB.CHEW PO (07:56)
[2020-07-24] MEDS: Gabapentin 100 MG Capsule 200 MG PO (07:56)
[2020-07-24] MEDS: Atenolol 25 MG Tablet PO (07:57)
[2020-07-24] MEDS: clonazePAM 0.5 MG Tablet PO ×2 (08:03→21:09)
[2020-07-24] MEDS: lamoTRIgine 100 MG Tablet 200 MG PO ×2 (08:03→21:09)
[2020-07-24 08:57] VITALS: BP 122/73; PULSE 76; RESP 16; TEMP 36.4; O2SAT 99
--- NOTE | 2020-07-24 12:48 | PCM.PN.BLA ---
Progress Note I reviewed the notes obtained from the counseling center. It appears her last appointment was a telemedicine appointment and that was 06/24/2020. At that appointment the patient states her mood was going down and she is afraid to go out of the house because she does not want to get COVID. She had a panic attack while at [facility] when her was out of site and there were a lot of people around her. There is a family history of Alzheimer's in her mother and her mother was also very rosa and possibly bipolar. Marissa's daughter has been diagnosed with bipolar disease and borderline personality disorder. Her diagnoses include bipolar 2 disorder, anxiety disorder and borderline personality disorder. She is on perphenazine 2 mg nightly and had no additional benefit when at 4 mg. She is also on Lamictal 200 mg twice daily for mood stabilization and Abilify 2 mg daily. She takes prazosin 1 mg nightly for nightmares? Notes from Dr. Nunez and also Dr. Sharma were also reviewed. She takes multiple ORTHOTIC ASSISTANT depressants including gabapentin, Klonopin, Lamictal, perphenazine and Abilify and I am not surprised she has difficulties with memory and word finding at times. She does have some features of Parkinson's disease however this is more likely parkinsonism secondary to the use of first generation and second generation antipsychotics to treat her bipolar disorder. Levodopa is less effective in patients with Parkinsonism and PD and can decrease the effectiveness of the anti-psychotics being used to treat BPD. The Gabapentin is being used to treat paresthesias.....could she get along without this? Less ORTHOTIC ASSISTANT depression? The tremor is an essential tremor but, bradykinesia and rigidity are sx of probable Parkinsonism Marissa is worried that she has Alzheimer's.....her mother had Alzheimer's and in her early 70's. She is on several medications that are ORTHOTIC ASSISTANT depressants and theses include Klonopin, gabapentin, Lamictal, perphenazine, Abilify, Cardura and loratadine. She tells me that after she was placed on Gabapentin and Sinemet her depression got worse and she became more fatigued. She is [id number] a hard time managing the timing of her medications at home. Levo-dopa can decrease the effect of the anti-psychotics. Increasing the antipsychotics can worsen the Parkinsonism. She has not been wearing BIPAP in the rehab unit. She sometimes does not wear it at home. We discussed how HECTOR can cause chronic fatigue and depression and memory problems due to sleep deprivation. She lists Gabapentin as an allergy and stated it caused KHOURY's and hallucinations Afebrile Vital signs stable Maintaining appropriate oxygen saturation on room air. When I first entered the room she had no tremors. She developed tremors when she began to tell me that she thought she had dementia and then she started crying. We discussed the fact that she is on several medications that cause ORTHOTIC ASSISTANT depression and can lead to memory difficulties and confusion. We discussed the difference between Parkinsonism and PD and how the Parkinsonism is due to some of the medications she is on and NOT due to neurodegenerative disease. She understood and told me that she is confused by what different doctors are saying and that some times they contradict each other. Lungs - CTA HRRR no MM and no gallop or rub abd - soft and NT Impressions 1. Debility secondary to recent ischemic right temporal CVA. She received TPA. 2. Bipolar disorder 3. Suspected parkinsonism and not Parkinson's disease. The parkinsonism is likely secondary to the use of 2 antipsychotics, Abilify and perphenazine, to control bipolar symptoms 4. Cognitive dysfunction-I suspect that this is at least in part due to the combined effects of several ORTHOTIC ASSISTANT depressants including gabapentin, Klonopin, Lamictal, perphenazine, Abilify, Cardura and loratadine 5. Hypertension-she is currently on both an alpha-jade and a beta-jade and gets lightheaded when she stands. 6. Stage III chronic renal failure 7. History of vitamin D deficiency 8. Dyslipidemia Nontoxic multinodular goiter 9. Osteopenia 10. Slight decrease in the right peroneal sensory action potential amplitude with normal motor conduction studies of the bilateral lower extremities. Uncertain significance of this? The study was not diagnostic for sensorimotor peripheral polyneuropathy, radiculopathy or myopathy. DC gabapentin, Cardura, Loratadine and Sinemet Continue to monitor the BP off Cardura request from Dr. Nunez a copy of the report of the neurocognitive testing Going forward there should be dialog between neurology and psychiatry prior to adding or changing medications. Seroquel has less parkinsonism than Perphenazine........will discuss this with the top case assembler, Rosie Gan at the counselling center. STROKE Vital Signs/Narrative: Vital Signs Temp Pulse Resp BP Pulse Ox 07/24/20 08:57 97.5 F L 76 16 122/73 H 99 Inpatient E&M: [id number] Subs Hosp L2
[2020-07-24 13:07] VITALS: BMI 31.1
[2020-07-24] MEDS: Atorvastatin Calcium 40 MG Tablet PO (21:09)
[2020-07-24 21:12] VITALS: BP 133/70; PULSE 76; RESP 16; TEMP 36.6; O2SAT 98
[2020-07-25 02:46] VITALS: BMI 31.1
[2020-07-25 07:32] VITALS: BP 145/77; PULSE 74; RESP 18; TEMP 36.4; O2SAT 94
[2020-07-25] MEDS: clonazePAM 0.5 MG Tablet PO ×2 (08:55→21:02)
[2020-07-25] MEDS: Aspirin 81 MG TAB.CHEW PO (08:56)
[2020-07-25] MEDS: lamoTRIgine 100 MG Tablet 200 MG PO ×2 (08:56→21:02)
[2020-07-25] MEDS: ARIPiprazole 2 MG Tablet PO (08:56)
[2020-07-25] MEDS: Atenolol 25 MG Tablet PO (08:57)
[2020-07-25 10:39] VITALS: BMI 31.1
--- NOTE | 2020-07-25 15:38 | NURSING ---
Pt ambulated hallways x1 assist via FWW to multipurpose room to work on puzzle, tolerated well.
[2020-07-25 21:00] VITALS: BP 143/77; PULSE 72; RESP 16; TEMP 36.6; O2SAT 97; BMI 31.1
[2020-07-25] MEDS: Atorvastatin Calcium 40 MG Tablet PO (21:02)
[2020-07-25] MEDS: Acetaminophen 500 MG Tablet 1000 MG PO (21:11)
[2020-07-26] MEDS: ARIPiprazole 2 MG Tablet PO (07:57)
[2020-07-26] MEDS: clonazePAM 0.5 MG Tablet PO ×2 (07:57→21:02)
[2020-07-26] MEDS: Aspirin 81 MG TAB.CHEW PO (07:58)
[2020-07-26] MEDS: Atenolol 25 MG Tablet PO (07:58)
[2020-07-26] MEDS: lamoTRIgine 100 MG Tablet 200 MG PO ×2 (07:58→21:01)
[2020-07-26 08:34] VITALS: BP 133/72; PULSE 68; RESP 16; TEMP 36.4; O2SAT 97
[2020-07-26 13:06] VITALS: BMI 31.1
[2020-07-26 20:50] VITALS: BP 135/88; PULSE 75; RESP 16; TEMP 36.7; O2SAT 95; BMI 31.1
[2020-07-26] MEDS: Acetaminophen 500 MG Tablet 1000 MG PO (21:00)
[2020-07-26] MEDS: Atorvastatin Calcium 40 MG Tablet PO (21:01)
[2020-07-27] MEDS: Acetaminophen 500 MG Tablet 1000 MG PO (04:31)
[2020-07-27] MEDS: clonazePAM 0.5 MG Tablet PO ×2 (08:53→20:39)
[2020-07-27] MEDS: Aspirin 81 MG TAB.CHEW PO (08:53)
[2020-07-27] MEDS: lamoTRIgine 100 MG Tablet 200 MG PO ×2 (08:53→20:40)
[2020-07-27] MEDS: ARIPiprazole 2 MG Tablet PO (08:54)
[2020-07-27] MEDS: Atenolol 25 MG Tablet PO (08:54)
[2020-07-27 08:56] VITALS: BP 141/70; PULSE 76; RESP 17; TEMP 36.4; O2SAT 97
--- NOTE | 2020-07-27 10:23 | CASEMGMT ---
Addendum entered by Rosie Jackson 07/27/20 15:15: Scheduled a counseling appt with Mercedes at [facility] at 08/17/2020 at 1300. Original Note: Social Work IDT met with patient for Team meeting. Discussed patient's progress in therapy. Pt is walking 200 ft with no device at SBA. Pt is SBA for all ADLS, gait is steady. Medication changes made improved pts fuzziness. St working on applying memory strategies, word finding, oral motor exercises and swallowing well on soft texture diet. Explained [employer] insurance with [employer] 07/27. Pt and IDT agreeable to set DC for 07/29. Pt requesting to restart at [facility] for PT/OT/ST. No DME needs. Pt to f/u with Dr. Logan for neurology and sleep medicine, as well as psychologist/psychiatrist. Pt to advance to [facility] I this date. Plan: DC home 07/29 with [facility] PT/OT/ST, no DME needs Rosie Jackson, EBONI REFERENCE DATA EXPERT
[2020-07-27 15:11] VITALS: BMI 31.1
--- NOTE | 2020-07-27 18:11 | PCM.PN.BLA ---
Progress Note Jacque was seen on team rounds today. There was no family present. Afebrile VSS Maintaining appropriate oxygen saturation on RA Oral intake is good Discussed with nursing - no problems that need addressed Reviewed the PT/OT/ST notes Medication list reviewed She tells me that the 'Fog is much better and she is thinking more clearly. She did not sleep well last night......states she was achey. Alert and oriented X 3. NAD. she is sitting on the EOB with no loss of balance. She is shaking both feet and the R hand.......it increases when she is getting emotional. She got emotional when she was telling me that her thinking is much clearer since the Gabapentin, Prazocin, Loratidine and Sinemet were discontinued. She was observed walking from the therapy room to her room (about 100 ft) and her gait was not shuffling. She had good arm swing. She did not require a AD. She kept a good pace. No rigidity and no bradykinesia today. The tremor is not a pill rolling tremor. Her voice is stronger and she is very fluent with her speech. ABD - soft and NT no edema and no calf tenderness Impressions 1. post stroke disability/debility 2. cognitive dysfunction with normal neurocognitive testing. Suspect due to multiple REGISTERED NURSE RENAL depressant medications. 3. Suspected Parkinsonism and not PD - Sinemet is not known to be very helpful in Parkinsonism...consider discontinuing 4. Essential tremor - increased with anxiety 5. BPD on Lamictal, Perphenazine and Abilify 6. fibromyalgia 7. L lateral thigh paresthesia with mild R peroneal decrease in amplitude....started on Gabapentin with non improvement but with increased trouble word finding Will discuss the anti-psychotics with her disease case manager rn, Leola Parker, from the counselling center. She was reassured that she does not have dementia She is agreeable to OP PT/OT/ST and she would like to go to [facility] for Monday With regard to the parkinsonism she would be at less risk of parkinsonism with Seroquel than Perphenzine Inpatient E&M: [id number] Subs Hosp L2
--- NOTE | 2020-07-27 18:20 | NURSING ---
Gait steady, using no device and up Independently in her room. Patient aware of referral made to Dr. Logan neurology upon DC.
[2020-07-27 19:53] VITALS: BP 130/73; PULSE 74; RESP 18; TEMP 36.7; O2SAT 97
[2020-07-27 20:35] VITALS: PULSE 74; RESP 18; O2SAT 97; BMI 31.1
[2020-07-27] MEDS: Atorvastatin Calcium 40 MG Tablet PO (20:39)
--- NOTE | 2020-07-28 02:18 | NURSING ---
Reviewed and agree with WAITER/WAITRESS SECOND CLASS documentation and charting.
[2020-07-28] MEDS: Atenolol 25 MG Tablet PO (07:36)
[2020-07-28] MEDS: Aspirin 81 MG TAB.CHEW PO (07:36)
[2020-07-28] MEDS: lamoTRIgine 100 MG Tablet 200 MG PO ×2 (07:36→22:25)
[2020-07-28] MEDS: ARIPiprazole 2 MG Tablet PO (07:36)
[2020-07-28] MEDS: clonazePAM 0.5 MG Tablet PO ×2 (07:36→22:25)
[2020-07-28 08:06] VITALS: BP 128/88; PULSE 76; RESP 16; TEMP 36.9; O2SAT 98
[2020-07-28 09:39] VITALS: BMI 31.1
[2020-07-28 19:33] VITALS: BP 136/78; PULSE 76; RESP 16; TEMP 36.8; O2SAT 96
[2020-07-28 21:50] VITALS: BMI 31.1
[2020-07-28 22:00] VITALS: PULSE 78; RESP 17; O2SAT 96
[2020-07-28] MEDS: Atorvastatin Calcium 40 MG Tablet PO (22:25)
[2020-07-29 08:30] VITALS: PULSE 96
[2020-07-29 08:38] VITALS: BP 118/68; PULSE 98; RESP 16; TEMP 36.9; O2SAT 94
[2020-07-29] MEDS: ARIPiprazole 2 MG Tablet PO (08:42)
[2020-07-29] MEDS: Aspirin 81 MG TAB.CHEW PO (08:42)
[2020-07-29] MEDS: Atenolol 25 MG Tablet PO (08:42)
[2020-07-29] MEDS: lamoTRIgine 100 MG Tablet 200 MG PO (08:42)
[2020-07-29] MEDS: clonazePAM 0.5 MG Tablet PO (08:45)
--- NOTE | 2020-07-29 13:42 | DS.PCM_ITS ---
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 - received TPA(Acute) R Temporal ischemic CVA(Acute) Left hemiparesis (Acute) - mild Suspected Problems: Parkinsonism - Secondary Discharge Diagnosis Chronic Problems: Chronic Problems Muscle spasm (Chronic) Fibromyalgia (Chronic) Anxiety (Chronic) Chronic back pain (Chronic) Hyperlipidemia (Chronic) Hypertension (Chronic) Bipolar disorder obesity Hospital Course and Treatment Imaging Results: Laboratory Last Values WBC 9.7 K/mm3 (4.4-11.0) 07/17/20 05:28 RBC 4.76 M/mm3 (4.2-5.4) 07/17/20 05:28 Hgb 13.6 g/dL (12.0-15.0) 07/17/20 05:28 Hct 42.4 % (37-47) 07/17/20 05:28 MCV 89.1 fL (81-99) 07/17/20 05:28 MCH 28.6 pg (27.0-32.0) 07/17/20 05:28 MCHC 32.1 g/dL (32-36) 07/17/20 05:28 RDW Std Deviation 41.5 fl (35.1-43.9) 07/17/20 05:28 RDW Coeff of Mckay 12.6 % (11.6-14.6) 07/17/20 05:28 Plt Count 230 K/mm3 (150-450) 07/17/20 05:28 MPV 9.2 fl (6.2-12.0) 07/17/20 05:28 Immature Gran % (Auto) 0.300 % (0.0-0.9) 07/17/20 05:28 Neut % (Auto) 57.3 % (47-70) 07/17/20 05:28 Lymph % (Auto) 28.9 % (19-41) 07/17/20 05:28 Seneca % (Auto) 8.7 % (0-10) 07/17/20 05:28 Eos % (Auto) 4.4 % (0-5) 07/17/20 05:28 Baso % (Auto) 0.4 % (0-1) 07/17/20 05:28 Absolute Neuts (auto) 5.5 X10^3/uL (2.0-7.7) 07/17/20 05:28 Absolute Lymphs (auto) 2.80 X10^3/uL (0.83-4.51) 07/17/20 05:28 Nucleated RBC % 0 % (0-5) 07/17/20 05:28 Sodium 137 mmol/L (136-145) 07/17/20 05:28 Potassium 4.0 mmol/L (3.5-5.1) 07/17/20 05:28 Chloride 107 mmol/L (98-107) 07/17/20 05:28 Carbon Dioxide 25.0 mmol/L (21.0-32.0) 07/17/20 05:28 Anion Gap 5 (5-15) 07/17/20 05:28 BUN 17 mg/dL (7-18) 07/17/20 05:28 Creatinine 1.07 mg/dL (0.55-1.02) H 07/17/20 05:28 Estim Creat Clear Calc 45.87 ml/min 07/17/20 05:28 Est GFR (MDRD) Af Amer 66 mL/min (>60) 07/17/20 05:28 Est GFR (MDRD) Non-Af 55 mL/min (>60) L 07/17/20 05:28 BUN/Creatinine Ratio 15.9 RATIO (10-20) 07/17/20 05:28 Glucose 91 mg/dL (74-106) 07/17/20 05:28 Calcium 9.1 mg/dL (8.5-10.1) 07/17/20 05:28 Phosphorus 3.8 mg/dL (2.5-4.9) 07/17/20 05:28 Magnesium 2.5 mg/dL (1.6-2.6) 07/17/20 05:28 Total Bilirubin 0.60 mg/dL (0.20-1.00) 07/17/20 05:28 AST 65 U/L (15-37) H 07/17/20 05:28 ALT 42 U/L (13-56) 07/17/20 05:28 Alkaline Phosphatase 119 U/L (45-117) H 07/17/20 05:28 Total Protein 7.5 g/dL (6.4-8.2) 07/17/20 05:28 Albumin 3.4 g/dL (3.2-5.0) 07/17/20 05:28 Globulin 4.1 g/dL (2.2-4.2) 07/17/20 05:28 Albumin/Globulin Ratio 0.8 RATIO (0.9-2.4) L 07/17/20 05:28 none Operations: None Procedures: None Summary of Care Provided: The patient is a 64 year old F with a past medical history of hypertension, hyperlipidemia, fibromyalgia, bipolar disorder, anxiety, obesity and chronic back pain who presented to the emergency department at [facility] on 07/13/2020 with complaints of dysarthria and left-sided weakness. Noncontrasted CT of the brain was negative for hemorrhage and consultation was obtained with the [facility] stroke team. She was given TPA and admitted to the intensive care unit. CTA of the head and neck revealed no hemodynamically significant vascular disease/stenosis. MRI of the brain done 24 hours after TPA revealed right temporal lobe infarct with no evidence of hemorrhage following TPA. TTE showed a normal left ventricular size and function with an ejection fraction of 65%. There was no significant valvular heart disease. Dysarthria and left-sided weakness improved significantly following TPA. She was discharged to the inpatient rehab unit on 07/16/2020 for greater than 3 hours of therapy daily to restore function at or near her level prior to the CVA. Marissa had seen neurology in May of 2020 for memory difficulty and a focal area of numbness in the left lateral leg. She had neurocognitive testing which was WNL. A CT scan of the brain showed chronic involutional changes only. There was no hemorrhage or significant interval change from a prior head CT. EMG/nerve conduction study showed the right peroneal nerve action potential amplitude to be slightly decreased. Other sensory nerve action potentials were normal. The study was not diagnostic for sensorimotor peripheral neuropathy, radiculopathy or myopathy. The neurologist detected mild masked facies, slowed performance of rapid alternating movements and a slow gait. She was placed on Sinemet and also on Gabapentin with no improvement. Her thought processes actually became slower and she was very worried she had dementia, jayy since her mother of Alzheimer's disease. She most likely has parkinsonism related to the use of 2 antipsychotic agents to control symptoms of bipolar disorder and not Parkinson's disease. Sinemet rarely helps the symptoms of parkinsonism. We discussed limiting CUSTODY OFFICER depressant medications with Marissa and she was agreeable. Gabapentin, Sinemet, loratadine and prazosin were discontinued. Blood pressure remains well controlled. She continued to sleep well at night and did not ex perience an increase in muscle pain or stiffness. On team rounds on 07/27/2020 she felt the fog had lifted and she was much better able to think straight. She becomes tearful when she is told she does not have dementia and she has been increasingly depressed in recent months due to the fear that she had Alzheimer's. The tremor that Marissa has is a benign essential tremor and it increases with anxiety and resolves when she is distracted. There is no need to treat this at this time. Her final physical therapy evaluation on 07/28/2020 showed improved arm swing, more relaxed gait and improved speed. She does not have a festinating gait and she does not have rigidity or bradykinesia. Her voice is strong and her speech is fluent. She was independent with ambulating 165 feet without an assistive device on various surfaces. She can go up and down 10 steps with 2 handrails at contact-guard assist. She is contact-guard assist with toilet transfer and minimal assistance with toileting. She is standby assist for tub/shower transfer. She is standby assist for grooming, and bathing and she is supervision only with upper body dressing and minimal assistance with lower body dressing. She was discharged on 07/29/20 on medications previously listed. She will be getting OPPT/OT and ST at [facility]. She is ambulating without an assistive device and she needed no DME at discharge. She will follow-up with Dr. Dorene Whittaker her primary care physician, the counseling center and Dr. Lior Logan for neurology. She should have a repeat lipid panel in 6 weeks and a liver panel. AST and AP were very mildly increased in the hospital. She is now on Atorvastatin instead of Simvastatin. LDL was 89 at admission to the hospital and the goal is < or equal to 70. Her BP is already at goal. Alert, oriented x3, no apparent distress, sitting comfortably in the recliner at the bedside Mucous membranes are moist Lungs-good air exchange, few coarse crackles in the bases bilaterally however these significantly decreased after a few deep breaths and I suspect this is atelectasis. She has no cough, no conversational dyspnea and she is not tachypneic. 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 No facial droop and no facial asymmetry. No drift, normal tandem gait This note was generated with [employer] dictation software. It may contain incorrect words, spelling, and punctuation that were not noted in checking the note before signing. Patient Problems: Active and Suspected Problems Parkinsonism (Suspected) Debility (Acute) Left hemiparesis (Acute) - Physical Exam Vitals/I&O's: Vital Signs Temp Pulse Resp BP Pulse Ox 98.5 F 98 16 118/68 94 07/29/20 08:38 07/29/20 08:38 07/29/20 08:38 07/29/20 08:38 07/29/20 08:38 Oxygen Delivery Method Room Air Weight: 181 lb 3.52 oz Body Mass Index (BMI) 31.1 Finger Stick Blood Glucose 125 Intake and Output for Last 24 Hours 07/27/20 07/28/20 07/29/20 23:59 23:59 23:59 Intake Total 920 / 920 1680 / 1680 510 / 510 Output Total 375 / 375 Balance 920 / 920 1305 / 1305 510 / 510 Current Medications Acetaminophen (Tylenol) 1,000 mg PO Q6H PRN PRN PRN Reason: Pain Score 1-10/10 Last Admin: 07/27/20 04:31 Dose: 1,000 mg Documented by: Aripiprazole (Abilify) 2 mg PO DAILY [facility] Last Admin: 07/29/20 08:42 Dose: 2 mg Documented by: Aspirin (Aspirin, Baby) 81 mg PO DAILY@0800 [facility] Last Admin: 07/29/20 08:42 Dose: 81 mg Documented by: Atenolol (Tenormin (Beta Mac)) 25 mg PO DAILY [facility] Last Admin: 07/29/20 08:42 Dose: 25 mg Documented by: Atorvastatin Calcium (Lipitor) 40 mg PO QHS [facility] Last Admin: 07/28/20 22:25 Dose: 40 mg Documented by: Bisacodyl (Dulcolax) 10 mg RECTAL .PRN X 1 PRN PRN Reason: Constipation Cholecalciferol (Vitamin D (25mcg)) 3,000 unit PO DAILY [facility] Last Admin: 07/29/20 08:42 Dose: 3,000 unit Documented by: Clonazepam (Klonopin) 0.5 mg PO BID [facility] Last Admin: 07/29/20 08:45 Dose: 0.5 mg Documented by: Lamotrigine (Lamictal) 200 mg PO BID [facility] Last Admin: 07/29/20 08:42 Dose: 200 mg Documented by: Magnesium Hydroxide (Milk Of Magnesia) 30 ml PO .PRN X 1 PRN PRN Reason: Constipation Perphenazine (Perphenazine) 2 mg PO QHS [facility] Last Admin: 07/28/20 22:25 Dose: 2 mg Documented by: Senna/Docusate Sodium (Senokot-S, Jacey-Colace) 2 tablet PO BID [facility] Last Admin: 07/29/20 08:41 Dose: Not Given Documented by: Home Medications: Medications to take at Discharge Lamotrigine [Lamictal] 200 mg PO BID 12/13/13 Aripiprazole [Abilify] 2 mg PO DAILY 07/13/20 Atenolol 25 mg PO DAILY 07/13/20 Cholecalciferol (VIT D3) [Vitamin D3] 3,000 unit PO DAILY 07/13/20 Clonazepam [Klonopin] 0.5 mg PO BID 07/13/20 Perphenazine 2 mg PO QHS 07/13/20 Aspirin [Aspirin, Baby] 81 mg PO DAILY@0800 07/16/20 Atorvastatin Calcium [Lipitor] 40 mg PO QHS 07/16/20 Primary Care Physician: Dorene Whittaker MD [Primary Care Provider] - Please Follow Up With: [facility] When: Phone Counseling Session - Mercedes Please Follow Up With: Lior Logan MD Please Follow Up With: PCP Dorene Whittaker MD Patient Instructions: Managing Fibromyalgia Disposition: Home - with OP therapy at [facility] Minutes spent on discharge:: 45 Patient Condition:: Good Medical Necessity - Tobacco Use Smoking Status: Former smoker Tobacco Use: Non-smoker Meaningful Use Info Meaningful Use Diagnoses (Choose all that apply): Ischemic CVA - CVA Therapy Assessed for PT,OT and/or ST?: Yes - Ischemic Stroke Antithrombotic order at d/c?: Yes Dx of Atrial fib/flutter?: No Anticoagulant at discharge?: No Reason anticoagulant not ordered: Treatment not Indicated Statins at discharge?: Yes Primary Dx Acute Ischemic CVA?: Yes IV tPA ordered during stay?: Yes Inpatient E&M: [id number] Disch Hosp
--- NOTE | 2020-07-29 14:03 | DCINST_ITS ---
- Discharge Diagnoses Current Active Problems: Current Active and Chronic Problems Debility (Acute) Stroke (Acute) Left hemiparesis (Acute) Muscle spasm (Chronic) You will use the following diet at home:: Cardiac - low salt and low fat Your food should be the consistency of: Regular Your liquids should be the consistency of: Regular/Thin Discharge Activity: May Shower, - - Do the exercises given to you by the therapists twice a day. Weight Bearing Status: Full weight bearing Call your doctor if you observe: Fever of 101 or Higher, Shortness of breath, Dizziness, Fainting spells, Swelling in the ankles, Chest pain, Increased palpitations (irregular heartbeat), Calf discomfort, - - Go the ED or call 911 immediately if sudden onset: 1. facial droop 2. slurred speech or inability to get words out 3. weakness or numbness on 1 side of the face, arm or leg. 4. vertigo or room spinning 5. loss of vision or trouble seeing in one eye 6. Confusion 7. Trouble walking or maintaining balance and trouble with coordination 8. Sudden severe headache with no known cause Instructions: Managing Fibromyalgia Additional Instructions: 1. You do NOT have dementia. The cognitive testing that was done showed you were in the normal range. When you came to the rehab unit you were on Multiple medications that cause depression of the central nervous system and these included gabapentin, Klonopin, Lamictal, perphenazine, Norflex, prazosin and loratadine. These medications can all cause slowing of thought processes and trouble with word finding and memory. Because you have bipolar disorder you must stay on the Abilify, perphenazine and Lamictal. You are on Klonopin for anxiety control but this medication can slow thought processes and is highly addictive and as we get older the side effects get worse. I left you on Klonopin but, I discussed this with Rosie and we agree it should be tapered off in the future. Loratadine, gabapentin, Sinemet and Cardura (also called prazosin) were discontinued. After a few days your thought processes improved and the trouble word finding also improved. You did not feel as though you were in a fog. You have been more animated, more interactive with the staff and less anxious. 2. You do not have Parkinson's disease. You have a few very mild symptoms of Parkinson's disease but, these symptoms are due to side effects from the anti-psychotic agents you take for bipolar disorder and they are VERY MILD. This is called Parkinsonism and these sx generally do not improve with treatment for Parkinson's disease (Sinemet). I discussed with Rosie considering changing the perphenazine to Seroquel (quetiapine) which is another anti-psychotic drug BUT Seroquel has less potential for causing Parkinsonism. As long as the symtoms of Parkinsonism stay mild I think it is OK to stay on perphenazine 2 mg at bedtime. 3. Fibromyalgia is best treated with regular exercise........jayy in a pt who is already on multiple medications that cause central nervous system depression. GAbapentin definitely will slow thought processing. Even with Gabapentin people with fibromyalgia will continue to have pain and stiffness if they do not regularly exercise. 4. It was a pleasure meeting you Marissa and I am glad we were able to help you. If you have any questions after you get home or if we can help you in any way please do not hesitate to call the rehab unit at [phone], my office at [phone] or my cell phone at [phone]. Rest assured you do not have dementia! Pending Tests on Discharge: none Allergies/Adverse Reactions: Allergies buprenorphine HCl [From Suboxone] Allergy (Verified 07/13/20 15:13) Anaphylaxis erythromycin base [Erythromycin Base] Allergy (Verified 07/13/20 17:12) unsure naloxone HCl [From Suboxone] Allergy (Verified 07/13/20 15:13) Anaphylaxis trazodone Adverse Reaction (Verified 07/17/20 00:10) NEEDS FOLLOW-UP MUSCLE WEAKNESS Medications to take at Discharge Lamotrigine [Lamictal] 200 mg PO BID 12/13/13 Aripiprazole [Abilify] 2 mg PO DAILY 07/13/20 Atenolol 25 mg PO DAILY 07/13/20 Cholecalciferol (VIT D3) [Vitamin D3] 3,000 unit PO DAILY 07/13/20 Clonazepam [Klonopin] 0.5 mg PO BID 07/13/20 Perphenazine 2 mg PO QHS 07/13/20 Aspirin [Aspirin, Baby] 81 mg PO DAILY@0800 07/16/20 Atorvastatin Calcium [Lipitor] 40 mg PO QHS 07/16/20 Primary Care Physician: Dorene Whittaker MD [Primary Care Provider] - Test Results: Test results from this visit will be discussed in further detail at your follow- up appointment, if applicable. Please Follow Up With: [facility] When: Phone Counseling Session - Mercedes Please Follow Up With: Lior Logan MD Please Follow Up With: PCP Dorene Whittaker MD Proposed Discharge Date: 07/29/20
== END 2020-07-29 15:05 | disposition home health service (06) | DRG 57 ==
PROVIDERS: Admitting Provider Family Medicine Geriatric Medicine; PCP Family Medicine; Visit Provider Internal Medicine
DX: I69.354 Hemiplegia and hemiparesis following cerebral infarction affecting left non-dominant side (principal); F31.81 Bipolar II disorder; I69.322 Dysarthria following cerebral infarction; M79.7 Fibromyalgia; E78.5 Hyperlipidemia, unspecified; N18.3 Chronic kidney disease, stage 3 (moderate); I12.9 Hypertensive chronic kidney disease with stage 1 through stage 4 chronic kidney disease, or unspecified chronic kidney disease; G20 Parkinson's disease; E55.9 Vitamin D deficiency, unspecified; F60.3 Borderline personality disorder; F41.0 Panic disorder [episodic paroxysmal anxiety]; E04.2 Nontoxic multinodular goiter; E66.9 Obesity, unspecified; Z87.891 Personal history of nicotine dependence; Z68.31 Body mass index [BMI] 31.0-31.9, adult
CPT/HCPCS: 36415; 80053; 83735; 84100; 85025; 92507; 92523; 96125; 97110; 97112; 97116; 97129; 97130; 97162; 97530; 97535; 97802; 99251; G0463

== ENCOUNTER 2020-10-14 17:30 | Outpatient (RCR) | payer OTHER, SELFPAY ==
--- NOTE | 2020-06-24 18:32 | HP.PTEVAL ---
Patient's Visit Information ELLE DUGAN is a 64 year old F referred to Physical Therapy by Dr. Dorene Whittaker MD with a diagnosis of Balance/gait. Date of Evaluation: 06/24/20 Physical Therapist: MISSY Leggett - Visit Plan Frequency: 2x /Week Duration: 4 Weeks Plan: 2X/ week for 4 weeks and then reassess for AT for balance and gait activities with some LE strengthening, stairs, with HEP. - Subjective Pt reports that she is here for her legs shaking and her balance. They did a bunch of testing and does not have the results of the testing yet. She was given Sinement and Gabapetin to see if they help with her shaking. She feels that sometimes the meds help. She is seeing a neurologist currently. They are ruling some things in/out including Neurocognitive issues cause she has bipolar issues. The shaking started by Dec. She started using the cane before that when she started losing her balance. She was taking a med that causes her muscles to be weak. She was always reaching for the muniz,counters etc. With the med she was missing the chair and could not catch herself. She reports that she is now able to get up from the floor by pushing herself up and getting her knees under her. She feels that she has leg weakness. She wanted the swimming pool because it helps her balance and takes the weight off her legs. Stairs: She reports that she does not do many stairs but she has 2 hand rails she uses and she goes 2 feet to a stair. Sit to stand: she has to stand up and wait to get her balance. She uses one hand to stand. Falls: she has had several falls...running into muniz and doors. Last fall was last week she fell on limestone. She manged to dog crawl to the chair she could get too. She has some decrease in sensation issues in her LE. - Pain B knee Pain Intensity (Out of 10): 7 B foot pain Pain Intensity (Out of 10): 9 - Objective Pt sitting in the chair and her B legs are activly shaking. Gait: Walks with a straight cane with decrease stride, decreased heel to toe gait pattern, and flexed trunk. LE MMT: B hip flex 4-/5, B knee ext 4/5, B knee flex 4/5, B hip abd 4-/5, pt is able to heel and toe raise with holding onto the wall, she is able to 1/2 normal ROm bridge. FGA: 14. Stairs: up stairs with 1 railing and a straight cane recip and down stairs 2 feet to a stair. Sit to stand: uses 1 hand on the chair rail. - Balance Scores Functional Gait Assessment Score: 14 % Disability: 53.3400 - Goals Goal 1:: I HEP Goal Time Frame: 4-6 Weeks Goal 2:: Increase LE strength by 1/2 muscle grade ( at time of eval: LE MMT: B hip flex 4-/5, B knee ext 4/5, B knee flex 4/5, B hip abd 4-/5, pt is able to heel and toe raise with holding onto the wall, she is able to 1/2 normal ROm bridge). Goal Time Frame: 4-6 Weeks Goal 3:: Increase FGA by 5 points to decrease fall risk (at time of eval FGA was 14) Goal Time Frame: 4-6 Weeks Goal 4:: Be able to walk with more upright posture, bigger steps with heel to toe gait pattern with a straight cane with no veering for 200 feet with SBA Goal Time Frame: 4-6 Weeks - Rehabilitation Potential Rehabilitation Potential: Good - Anticipated Interventions Patient/Client Instruction: Educate patient on: Plan of Care For the Purpose of:: To improve muscle performance and motor function, To improve ability to perform ADL's, To increase tolerance to activity/condition/position, To improve performance and independence with ADL's, To decrease level of supervision to perform tasks, To improve ability of physical actions for home/community/work/leisure, To improve gait and locomotor functions, To improve health of tissue, To improve endurance, To improve balance, To improve safety with gait Therapeutic Exercise to Include: Strength training, Endurance training, Coordination, Postural training, Gait and locomotor training, In an aquatic setting, Active ROM, Dynamic Lumbar Stabilization For the Purpose of:: To improve muscle performance and motor function, To improve ability to perform ADL's, To increase tolerance to activity/condition/position, To improve performance and independence with ADL's, To decrease level of supervision to perform tasks, To improve ability of physical actions for home/community/work/leisure, To improve gait and locomotor functions, To improve balance, To improve safety with gait Functional Training to Include: Gait training For the Purpose of:: To improve gait and locomotor functions, To improve safety with gait Thank you for the opportunity to evaluate your patient. For Medicare and Medicare HMO plans, please review the plan of care and approve it. It will need to be FAXED BACK to us at [phone] for Medicare purposes. For Medicare only, by signing this I certify the plan of care. Please let me know if there are questions or concerns regarding this plan of care. Physician Signature: Date:
--- NOTE | 2020-08-03 16:07 | HP.PTREVAL ---
Dr. Chanda Sosa, DO, It has been my pleasure to treat ELLE DUGAN over the last 3 visits for Balance/gait. Please see the progress note below for an update on the physical therapy plan of care! Subjective: Pt had a stroke July 13. She was feeling weird around noon... dizzy and room spinning. She called her and went to stand up and her L foot dropped. She waited for her to come home and she went to the ER and in ICU and a lot of that was blank. She was on the rehab floor. Her L side is weak still. She is having a little trouble with her speech and trouble with her L hand. She is not driving. She was being seen for balance issues for 1 visit prior to this stroke. She has shaking of B legs that she can not control. She has shaking with nervousness. She has had no falls since she has been out of the hospital. She has been on the cane for a long time. She has 4 steps to the front door and 3 out the back door all with railing. She ascends the stairs with 2 feet to a stair. Objective/Function: Observation; pt has a contious shaking of her LE's mostly on the R which she relates to nerves. Sit to stand: able to get up without using her arms on first attempt. Gait: Walks with shorter stride and occ catching of L foot on the ground with gait... slower cautious gait with decrease arms swing. LE MMT: R hip flex 4/5 and L hip flex 4-/5, R hip abd 4/5 and L hip abd 4-/5, R knee ext 4/5 and L knee ext 3+/5, R knee flex 4/5 and L knee flex 4-/5. Stairs: NT due to pt was too fatigued by the end of the reassessment. FGA: 9 Plan Plan: 2X/ week for 4 weeks for LE strength (especially the L), gait training, functional balance with and without head turns and with and without compliant sufaces, steps, with HEP Goals Goal 1:: I HEP Goal Time Frame: 4-6 Weeks Goal 2:: Increase LE strength by 1/2 muscle grade ( at time of eval: LE MMT: R hip flex 4/5 and L hip flex 4-/5, R hip abd 4/5 and L hip abd 4-/5, R knee ext 4/5 and L knee ext 3+/5, R knee flex 4/5 and L knee flex 4-/5 Goal Time Frame: 4-6 Weeks Goal 3:: Increase FGA by 5 points to decrease fall risk (at time of Re-eval FGA was 9) Goal Time Frame: 4-6 Weeks Goal 4:: Be able to walk with more upright posture, bigger steps with heel to toe gait pattern with a straight cane with no veering for 200 feet with SBA Goal Time Frame: 4-6 Weeks Anticipated Interventions Patient/Client Instruction: Educate patient on: Plan of Care For the Purpose of:: To improve muscle performance and motor function, To improve ability to perform ADL's, To increase tolerance to activity/condition/position, To improve performance and independence with ADL's, To decrease level of supervision to perform tasks, To improve ability of physical actions for home/community/work/leisure, To improve gait and locomotor functions, To improve health of tissue, To improve endurance, To improve balance, To improve safety with gait Therapeutic Exercise to Include: Strength training, Endurance training, Coordination, Postural training, Gait and locomotor training, In an aquatic setting, Active ROM, Dynamic Lumbar Stabilization For the Purpose of:: To improve muscle performance and motor function, To improve ability to perform ADL's, To increase tolerance to activity/condition/position, To improve performance and independence with ADL's, To decrease level of supervision to perform tasks, To improve ability of physical actions for home/community/work/leisure, To improve gait and locomotor functions, To improve balance, To improve safety with gait Functional Training to Include: Gait training For the Purpose of:: To improve gait and locomotor functions, To improve safety with gait Please do not hesitate to contact me at [phone] by phone or if you have questions or concerns regarding this new plan of care! Sincerely, MISSY Leggett
--- NOTE | 2020-08-11 14:52 | HP.OTEVAL ---
Patient's Visit Information ELLE DUGAN is a 64 year old F, referred to Occupational Therapy by Dr. Chanda Sosa DO, with a diagnosis of CVA left UE weakness. Date of Evaluation: 08/11/20 Occupational Therapist: Tequila Quiroga, DAMON/Abdoulaye, CHT - Subjective This 64 year old female was seen for OT eval with dx of CVA on 2019. pt states she went to the ER due to feeling funny, and inability to ambulate. pt states she was in the hospital until 07/29/20. pt states her left side of her body feels weak and has started to shake with increase stress or anxiety. pt would like to get stronger to return to performing her ADLs at IND. level. - ADLs Dressing: Socks, Shoes Comments: needs assistance Comments: pt states her started cooking about two years ago. pt states she has grab bar in shower and has a shower chair. long handle shower head. pt states she is having trouble with putting socks and shoes own- spouse does help. pt states he does the cleaning. pt states spouse does grocery shopping. - ROM Shoulder: right 160 left 150 Elbow: right/ left WNL Forearm: right/left WNL ROM Comments: pt demo ROM WFL grossly throughout- a decrease in left UE shoulder flex- pt states arm feels heavy. pts extremities tremor with tasks - Strength Shoulder: right 4/5 left 4-/5 Elbow: right 4/5 left 4-/5 Forearm: right 4/5 left 4-/5 Transformation Coach: right 45# left 15# Lateral Pinch: right 10# left 10# Tripod Pinch: right 10# left 8# Strength Comments: pt demo with weakness limiting pts functional strength and endurance increasing pts need of assist with ADLs and IADls - Quick DASH-Disab of Arm,Shoulder& Hand Quick DASH Score: 61.3625 - Goals Goal:: Pt will demo increase in MMT to 4+/5 grossly throughout to increase pts ind. with ADLs and IADLs by d/c. pt will demo a increase in left braker passenger train strength by 30# to increase pts ind. with ADLs and IADLs by d/c. pt will demo a increase in pinch strength by 3# to increase pts ind with manipulation of fasteners at ind. level by d/c Goal:: pt will report pain no greater than 1/10 with use of left UE with ADls and IADls by d/c Goal:: pt and family will demo understanding of ad. eq./ home modification to increase safety and ind. with ADls and IADls by d/c - Rehabilitation General Assessment: pt demo with weakness grossly throughout UE and increase tremors increasing need of assist with ADLs and IADLs. Pt would benefit from skilled OT services 2x week for 4 weeks to improve pts strength and ed. pt and family on ad. eq./ home modification to return to pLOF. pt agree to POC. Rehabilitation Potential: Good - Anticipated Interventions Strengthening, Joint Protection/Energy Conservation, Ergonomic Education, Neuro Reeducation, Education re assistive Equipment - Visit Plan Frequency: 2-3x /Week Duration: 2 Months TEXT: Thank you for the opportunity to evaluate your patient. For Medicare and Medicare HMO plans, please review the plan of care and approve it. It will need to be FAXED BACK to us at [phone] for Medicare purposes. Please let me know if there are questions or concerns regarding this plan of care. Physician Signature: Date:
--- NOTE | 2020-08-11 16:17 | HP.SP.AD_ITS ---
History - History Date of Eval: 08/11/20 Medical Diagnosis (from RX): CVA Date of Onset of Diagnosis: 07/13/20 Previous speech therapy: Yes Results: While inpatient rehab. Other Relevant Medical History/Diagnoses/Surgery: Anxiety, high blood pressure, depression, bipolar, high chlorestrol, fibromyalgia Medications related to this diagnosis: Klonopin, lamictal, simvastatin, atenenolol, abilify. Smoking Status: Former smoker Hx Smoking: No Hx Tobacco Use: No Hx Smoking Exposure: No - Pain Is pain an issue with your current prescribed condition?: Yes - Personal Occupation: unemployed Right Hearing Abillity: Normal Left Hearing Abillity: Normal Visual Assistive Devices: Glasses Patients Living Arrangements: With Significant Other Patient Allergies - Allergies Allergies buprenorphine HCl [From Suboxone] Allergy (Verified 07/13/20 15:13) Anaphylaxis erythromycin base [Erythromycin Base] Allergy (Verified 07/13/20 17:12) unsure naloxone HCl [From Suboxone] Allergy (Verified 07/13/20 15:13) Anaphylaxis trazodone Adverse Reaction (Verified 07/17/20 00:10) NEEDS FOLLOW-UP MUSCLE WEAKNESS Subjective Oral Motor - Subjective Patient Reports: Drooling, Difficulty being Understood - Comments Comments: Patient reported her asks her to repeat but she stated he needs hearing aids. Objective Oral Motor - Oral Status Dentition: Missing Teeth Additional: 7 - Labial Impairment: WNL Observation at Rest: WNL Closure: WNL Pucker: WNL Retraction: WNL Alternating Pucker/Retraction: WNL Involuntary Movement noted: No - Lingual Impairment: WNL Protrusion: WNL Retraction: WNL Lateralization: WNL Involuntary Movement: No - Jaw Impairment: WNL Subjective Dysarthria/Motor - Subjective Subjective: Patient reported that her speech is not the same as before CVA. Objective Dysarthira/Motor - Speech Intelligibility Single Words: WNL Sentences: WNL Conversation: WNL - Volume Volume: WNL - Sounds Sounds in Error: Patient reported /s/ and /r/ but no deficits noted in conversation. - Consistency w/Multiple Repetitions Words: WNL - Observation Observation of Apraxia of Speech: No Oral Groping for Placement: No Inconsistent Errors: No - Awareness/Strategy Use Uses strategies effectively and consistently to improve intelligibility or list ener's understanding of message: Yes - Comments Intelligibility -: Patient's speech was 100% intelligibile with no repeitition needed. Plan - Plan Plan: No speceh therapy is warrantent. - Recommendations Treatment Warranted: No Education - Patient has Indicated that the Following Identified Educational Needs: None The Patient has indicated that they have no educational or learning abilities that may effect their care.: Yes - Patient Instruction Patient Education: Diagnosis Person Taught: Patient Teaching Method: Discussion Response to teaching: Verbalize understanding
--- NOTE | 2020-09-07 16:10 | HP.OTDCSUM_ITS ---
It has been my pleasure to treat ELLE DUGAN under orders from Dr. Dorene Whittaker MD, for the diagnosis of CVA left UE weakness for a total of 8 visit(s). Please see the following information for a summary of their discharge status. % Improvement: 80 Objective/Function: pt demo with a left senior research engineer of 30# a increase from 15#. a left lateral pinch 12# a increase from 10#. left tripod pinch 8# no change in strength. pt has made good gains with her UB strength and has met OT goals at this time. Patient Goals: Regain Strength, Use Hand/Wrist/Arm Normally Again Goal:: Pt will demo increase in MMT to 4+/5 grossly throughout to increase pts ind. with ADLs and IADLs by d/c. pt will demo a increase in left senior research engineer strength by 30# to increase pts ind. with ADLs and IADLs by d/c. pt will demo a increase in pinch strength by 3# to increase pts ind with manipulation of fasteners at in d. level by d/c Goal:: pt will report pain no greater than 1/10 with use of left UE with ADls and IADls by d/c Goal:: pt and family will demo understanding of ad. eq./ home modification to increase safety and ind. with ADls and IADls by d/c Plan: D/C If there are questions or concerns regarding this patient's occupational t herapy, please fell free to call me at [phone]. Thank you for the referral of this patient. Sincerely, Tequila Quiroga, OTR/L, CHT
--- NOTE | 2020-09-14 16:01 | HP.PTREVAL ---
Dr. Dorene Whittaker MD, It has been my pleasure to treat ELLE DUGAN over the last 11 visits for Balance/gait. Please see the progress note below for an update on the physical therapy plan of care! Subjective: Pt reports that she is shaking really bad today and she goes to another neurologist on 10-02-2020. She reports that he balance is bad today as well. They are looking at what the stroke did ti her and why it is not better. She has had no recent falls. She reports that the balance board is tough for her Objective/Function: FGA 12. Gait: Pt walks with decreased heel to toe gait pattern, flexed trunk, decreased arm swing with a cane. LE MMT: R hip flex 4+/5 and L 4/5, B knee flex and ext 4+/5, B seated hip abd 4/5. Stairs: up and down recip with 1 hand rail with fw trunk posture. Plan Plan: Focus on walking with head turns, dynamic balance, walking and tallking, walking with upright posture, turning directions, giat with heel to toe gait pattern. etch Goals Goal 1:: I HEP Goal Time Frame: 4-6 Weeks Goal 2:: Increase LE strength by 1/2 muscle grade ( at time of eval: LE MMT: R hip flex 4/5 and L hip flex 4-/5, R hip abd 4/5 and L hip abd 4-/5, R knee ext 4/5 and L knee ext 3+/5, R knee flex 4/5 and L knee flex 4-/5 Goal Time Frame: 4-6 Weeks Goal Progress: Goal Met Goal 3:: Increase FGA by 5 points to decrease fall risk (at time of Re-eval FGA was 9) Goal Time Frame: 4-6 Weeks Goal Progress: Progressing Goal 4:: Be able to walk with more upright posture, bigger steps with heel to toe gait pattern with a straight cane with no veering for 200 feet with SBA Goal Time Frame: 4-6 Weeks Goal Progress: Progressing Goal 5:: Be able to walk with horizontal and up and down head turns without veering, LOB or dizziness Goal Time Frame: 4-6 Weeks Anticipated Interventions Patient/Client Instruction: Educate patient on: Plan of Care For the Purpose of:: To improve muscle performance and motor function, To improve ability to perform ADL's, To increase tolerance to activity/condition/position, To improve performance and independence with ADL's, To decrease level of supervision to perform tasks, To improve ability of physical actions for home/community/work/leisure, To improve gait and locomotor functions, To improve health of tissue, To improve endurance, To improve balance, To improve safety with gait Therapeutic Exercise to Include: Strength training, Endurance training, Coordination, Postural training, Gait and locomotor training, In an aquatic setting, Active ROM, Dynamic Lumbar Stabilization For the Purpose of:: To improve muscle performance and motor function, To improve ability to perform ADL's, To increase tolerance to activity/condition/position, To improve performance and independence with ADL's, To decrease level of supervision to perform tasks, To improve ability of physical actions for home/community/work/leisure, To improve gait and locomotor functions, To improve balance, To improve safety with gait Functional Training to Include: Gait training For the Purpose of:: To improve gait and locomotor functions, To improve safety with gait Please do not hesitate to contact me at [phone] by phone or if you have questions or concerns regarding this new plan of care! Sincerely, Cecy Suggs MPT
--- NOTE | 2020-10-14 18:03 | HP.PTDCSUM ---
It has been my pleasure to treat ELLE DUGAN referred by Dr. Dorene Whittaker MD, with the diagnosis of Balance/gait for a total of 16 visit(s). Discharge Date: 10/14/20 Please see the following information for a summary of their discharge status. Subjective: Pt feels that she is still struggling with balance... she reports that when she is on the black foam she feels that she is not doing it 100%... and she has to grab bar with balance. She does not like her shaking but it is part of Parkinsonism. She feels that she has trouble walking on carpet. She has had no fall recently. She occ loses balance into the wall at home and does not use her cane at home. B knee Pain Intensity (Out of 10): 1 B foot pain Pain Intensity (Out of 10): 1 L hip and knee pain Pain Intensity (Out of 10): 0 hip pain from her shaking Pain Intensity (Out of 10): 5 % Improvement: 70 Objective/Function: FGA 23. LE MMT: R hip flex 4/5 and L hip flex 4-/5, L hip flex 4/5, R hip abd 4/5 and L hip abd 4/5, R knee ext 4/5 and R knee ext 4/5, R knee flex 4/5 and L knee flex 4/5. Pt is able to walk with head turns without losing his balance. Goal 1:: I HEP Goal Progress: Goal Met Goal 2:: Increase LE strength by 1/2 muscle grade ( at time of eval: LE MMT: R hip flex 4/5 and L hip flex 4-/5, R hip abd 4/5 and L hip abd 4-/5, R knee ext 4/5 and L knee ext 3+/5, R knee flex 4/5 and L knee flex 4-/5 Goal Progress: Goal Met Goal 3:: Increase FGA by 5 points to decrease fall risk (at time of Re-eval FGA was 9) Goal Progress: Progressing Goal 4:: Be able to walk with more upright posture, bigger steps with heel to toe gait pattern with a straight cane with no veering for 200 feet with SBA Goal Progress: Goal Met Goal 5:: Be able to walk with horizontal and up and down head turns without veering, LOB or dizziness Goal Progress: Goal Met Plan: DC PT to HEP Discharge Comments: DC PT to HEP If there are questions or concerns regarding this patient's physical therapy, please feel free to call me at [phone]. Thank you for the referral of this patient. Sincerely, Cecy Suggs, MPT
== END 2020-10-14 19:00 | disposition home or self-care (01) ==
LOC: PT 17:30
PROVIDERS: PCP Family Medicine; Referring Provider Family Medicine; Visit Provider Family Medicine
DX: R26.89 Other abnormalities of gait and mobility (principal); Z86.73 Personal history of transient ischemic attack (TIA), and cerebral infarction without residual deficits
CPT/HCPCS: 92522; 97110; 97113; 97116; 97162; 97164; 97166; 97530

== ENCOUNTER → 2020-10-26 20:12 | Outpatient (CLI) | payer OTHER, SELFPAY | PROVIDERS: PCP Family Medicine; Referring Provider Psychiatry & Neurology Sleep Medicine; Visit Provider Psychiatry & Neurology Sleep Medicine | DX: G47.33 Obstructive sleep apnea (adult) (pediatric) (principal) | CPT/HCPCS: 95810 ==

== ENCOUNTER → 2021-01-21 | Outpatient (CLI) | payer OTHER, SELFPAY | END | disposition home or self-care (01) | LOC: LABSPEC 10:46 | PROVIDERS: PCP Family Medicine; Visit Provider Family Medicine | DX: Z20.822 Contact with and (suspected) exposure to COVID-19 (principal) | CPT/HCPCS: 87635; U0005; U0003 ==

== ENCOUNTER 2021-01-29 12:49 | Inpatient (IN) | payer MEDICARE, SELFPAY ==
[2021-01-29] VITALS (12 sets, daily range): BP systolic 121–143; BP diastolic 63–77; PULSE 67–80; RESP 14–23; TEMP 36.3–36.8; O2SAT 93–96; BMI 30.4; BMI 30.5; BMI 28.9
--- NOTE | 2021-01-29 13:32 | ED.VIS.GEN ---
History of Present Illness Chief Complaint: Nausea/Vomiting Informant: Patient Narrative: 65-year-old female presenting with generalized weakness. She states she tested positive for COVID-19 on Monday. She is unable to answer most questions as she cannot recall these. Patient states that she does not have any chest pain, palpitations, shortness of breath, cough. Her main symptoms are nausea and vomiting. She is not had a fever that she knows of. Patient states she is too weak to even sit up in bed. Patient's is currently having symptoms of COVID-19 as well. It sounds as if she contracted it from him. Patient states that her nausea and vomiting started today. She has been eating and drinking normally up until today. She is making normal urine and stool. She denies dysuria. Past Medical History - Allergies and Home Meds Allergies/Adverse Reactions: Allergies buprenorphine HCl [From Suboxone] Allergy (Verified 01/29/21 12:57) Anaphylaxis erythromycin base [Erythromycin Base] Allergy (Verified 01/29/21 12:57) unsure naloxone HCl [From Suboxone] Allergy (Verified 01/29/21 12:57) Anaphylaxis trazodone Adverse Reaction (Verified 01/29/21 12:57) NEEDS FOLLOW-UP MUSCLE WEAKNESS Primary Care Physician: Dorene Whittaker MD [Primary Care Provider] - Prior records reviewed: Yes Past Medical History: - - Parkinson's, fibromyalgia, bipolar disorder, anxiety, hyperlipidemia, hypertension Surgical History: noncontributory, mastectomy, - - Neck surgery. Lives: Spouse/ Significant Other Smoking Status: Never smoker Alcohol: None Drugs: None - Family History Paternal Family History: Reports: No pertinent history Maternal Family History: Reports: - - no CVA Review of Systems General: Denies: Chills, Fever, Sweats Eyes: Denies: Visual changes - bilaterally, Diplopia ENT: Denies: Rhinorrhea, Sore throat Cardiovascular: Denies: Chest pain, Palpitations Respiratory: Denies: Dyspnea, Cough, Dyspnea on exertion Gastrointestinal: Reports: Nausea, Vomiting. Denies: Abdominal pain, Diarrhea, Constipation Musculoskeletal: Denies: Back pain, Extremity Pain Skin: Denies: Rash, Wounds Neurological: Reports: Headache. Denies: Parasthesia, Numbness Psych: Denies: Depression, Anxiety, Suicidal thoughts, Suicidal ideations, -, - Physical Exam Vital Signs/Narrative: Vital Signs Temp Pulse Resp BP Pulse Ox 01/29/21 13:00 97.6 F L 72 16 139/65 H 95 01/29/21 12:52 97.6 F L 72 16 139/65 H 95 Inital Vital Signs reviewed: Yes General: Well nourished, No Acute Distress Head: Normocephalic, Atraumatic Eyes: Perrl, EOMI. Negative for: Scleral icterus ENT: Moist mucous membranes, No rhinorrhea Cardiovascular: Regular rate, Regular rhythm Respiratory: No distress, CTA bilaterally Abdomen: Soft, Nontender, Nondistended Extremities: Nontender, No edema Skin: Normal color, No rash. Negative for: Cyanosis, Diaphoresis Neurological: Alert, Oriented x3, Cranial nerves II-XII grossly intact Diagnostic/Tx/Re-eval Clinical Impression(s) from Imaging Studies Chest X-Ray 01/29/21 14:03 IMPRESSION: Normal x-ray examination of the chest. Electronically Signed: Ruddy Fairchild MD at 14:16 EDT Tel , Service support , Laboratory Data 01/29/21 01/29/21 01/29/21 13:15 13:15 13:15 WBC Corrected WBC RBC Hgb Hct MCV MCH MCHC RDW Std Deviation RDW Coeff of Mckay Plt Count MPV Immature Gran % (Auto) Neut % (Auto) Lymph % (Auto) [place] % (Auto) Eos % (Auto) Baso % (Auto) Absolute Neuts (auto) Absolute Lymphs (auto) Total Counted Neutrophils % (Manual) Band Neutrophils % Lymphocytes % (Manual) Monocytes % (Manual) Eosinophils % (Manual) Basophils % (Manual) Metamyelocytes % Myelocytes % Promyelocytes % Blast Cells % Plasma Cell % (Manual) Other Cells % Nucleated RBC % Nucleated RBCs/100 WBC Differential Comment Diff Path Review Hypersegmented Neuts Atypical Lymphocytes Reactive Lymphocytes Smudge Cells Toxic Granulation Toxic Vacuolation Dohle Bodies [place] Rods Platelet Estimate Plt Morphology Comment RBC Morphology Polychromasia Hypochromasia Poikilocytosis Basophilic Stippling Anisocytosis Microcytosis Macrocytosis Spherocytes Sickle Cells Target Cells Tear Drop Cells Ovalocytes Stomatocytes Baker-[place] Bodies [place] Cells Bite Cells Crenated Cell Acanthocytes (Spur) Rouleaux Schistocytes Sodium 137 Potassium 4.3 Chloride 106 Carbon Dioxide 25.0 Anion Gap 6 BUN 9 Creatinine 0.91 Estim Creat Clear Calc 53.22 Est GFR (MDRD) Af Amer 80 Est GFR (MDRD) Non-Af 66 BUN/Creatinine Ratio 9.9 L Glucose 134 H Lactic Acid 1.5 Calcium 8.8 Total Bilirubin 0.70 AST 42 H ALT 24 Alkaline Phosphatase 106 Troponin I < 0.015 Total Protein 7.4 Albumin 3.0 L Globulin 4.4 H Albumin/Globulin Ratio 0.7 L Procalcitonin 0.07 Urine Color Urine Clarity Urine pH Ur Specific [place] Urine Protein Urine Glucose (UA) Urine Ketones Urine Occult Blood Urine Nitrite Urine Bilirubin Urine Urobilinogen Ur Leukocyte Esterase Urine RBC Urine WBC Ur Squamous Epith Cells Ur Transition Epith Cell Ur Renal Epithelial Cell Urine Bacteria Urine Mucus 01/29/21 01/29/21 01/29/21 13:47 13:47 13:47 WBC Cancelled Corrected WBC Cancelled RBC Cancelled Hgb Cancelled Hct Cancelled MCV Cancelled MCH Cancelled MCHC Cancelled RDW Std Deviation Cancelled RDW Coeff of Mckay Cancelled Plt Count Cancelled MPV Cancelled Immature Gran % (Auto) Cancelled Neut % (Auto) Cancelled Lymph % (Auto) Cancelled [place] % (Auto) Cancelled Eos % (Auto) Cancelled Baso % (Auto) Cancelled Absolute Neuts (auto) Cancelled Absolute Lymphs (auto) Cancelled Total Counted Cancelled Neutrophils % (Manual) Cancelled Band Neutrophils % Cancelled Lymphocytes % (Manual) Cancelled Monocytes % (Manual) Cancelled Eosinophils % (Manual) Cancelled Basophils % (Manual) Cancelled Metamyelocytes % Cancelled Myelocytes % Cancelled Promyelocytes % Cancelled Blast Cells % Cancelled Plasma Cell % (Manual) Cancelled Other Cells % Cancelled Nucleated RBC % Cancelled Nucleated RBCs/100 WBC Cancelled Differential Comment Cancelled Diff Path Review Cancelled Hypersegmented Neuts Cancelled Atypical Lymphocytes Cancelled Reactive Lymphocytes Cancelled Smudge Cells Cancelled Toxic Granulation Cancelled Toxic Vacuolation Cancelled Dohle Bodies Cancelled [place] Rods Cancelled Platelet Estimate Cancelled Plt Morphology Comment Cancelled RBC Morphology Cancelled Polychromasia Cancelled Hypochromasia Cancelled Poikilocytosis Cancelled Basophilic Stippling Cancelled Anisocytosis Cancelled Microcytosis Cancelled Macrocytosis Cancelled Spherocytes Cancelled Sickle Cells Cancelled Target Cells Cancelled Tear Drop Cells Cancelled Ovalocytes Cancelled Stomatocytes Cancelled [place] Bodies Cancelled [place]muel Cells Cancelled Bite Cells Cancelled Crenated Cell Cancelled Acanthocytes (Spur) Cancelled Rouleaux Cancelled Schistocytes Cancelled Sodium Cancelled Potassium Cancelled Chloride Cancelled Carbon Dioxide Cancelled Anion Gap Cancelled BUN Cancelled Creatinine Cancelled Estim Creat Clear Calc Cancelled Est GFR (MDRD) Af Amer Cancelled Est GFR (MDRD) Non-Af Cancelled BUN/Creatinine Ratio Cancelled Glucose Cancelled Lactic Acid Cancelled Calcium Cancelled Total Bilirubin Cancelled AST Cancelled ALT Cancelled Alkaline Phosphatase Cancelled Troponin I Cancelled Total Protein Cancelled Albumin Cancelled Globulin Cancelled Albumin/Globulin Ratio Cancelled Procalcitonin Urine Color Urine Clarity Urine pH Ur Specific [place] Urine Protein Urine Glucose (UA) Urine Ketones Urine Occult Blood Urine Nitrite Urine Bilirubin Urine Urobilinogen Ur Leukocyte Esterase Urine RBC Urine WBC Ur Squamous Epith Cells Ur Transition Epith Cell Ur Renal Epithelial Cell Urine Bacteria Urine Mucus 01/29/21 01/29/21 01/29/21 13:47 13:50 14:19 WBC 7.9 Corrected WBC RBC 4.35 Hgb 12.8 Hct 39.6 MCV 91.0 MCH 29.4 MCHC 32.3 RDW Std Deviation 40.9 RDW Coeff of Mckay 12.2 Plt Count 124 L MPV 10.2 Immature Gran % (Auto) 0.300 Neut % (Auto) 77.7 H Lymph % (Auto) 14.0 L [place] % (Auto) 7.6 Eos % (Auto) 0.4 Baso % (Auto) 0.0 Absolute Neuts (auto) 6.2 Absolute Lymphs (auto) 1.11 Total Counted Neutrophils % (Manual) Band Neutrophils % Lymphocytes % (Manual) Monocytes % (Manual) Eosinophils % (Manual) Basophils % (Manual) Metamyelocytes % Myelocytes % Promyelocytes % Blast Cells % Plasma Cell % (Manual) Other Cells % Nucleated RBC % 0 Nucleated RBCs/100 WBC Differential Comment Diff Path Review Hypersegmented Neuts Atypical Lymphocytes Reactive Lymphocytes Smudge Cells Toxic Granulation Toxic Vacuolation Dohle Bodies [place] Rods Platelet Estimate Plt Morphology Comment RBC Morphology Polychromasia Hypochromasia Poikilocytosis Basophilic Stippling Anisocytosis Microcytosis Macrocytosis Spherocytes Sickle Cells Target Cells Tear Drop Cells Ovalocytes Stomatocytes Baker-[place] Bodies [place] Cells Bite Cells Crenated Cell Acanthocytes (Spur) Rouleaux Schistocytes Sodium Potassium Chloride Carbon Dioxide Anion Gap BUN Creatinine Estim Creat Clear Calc Est GFR (MDRD) Af Amer Est GFR (MDRD) Non-Af BUN/Creatinine Ratio Glucose Lactic Acid Calcium Total Bilirubin AST ALT Alkaline Phosphatase Troponin I Total Protein Albumin Globulin Albumin/Globulin Ratio Procalcitonin Cancelled Urine Color Straw Urine Clarity Cloudy Urine pH 7.0 Ur Specific [place] 1.010 Urine Protein 15 H Urine Glucose (UA) Normal Urine Ketones Negative Urine Occult Blood 25 H Urine Nitrite Negative Urine Bilirubin Negative Urine Urobilinogen Normal Ur Leukocyte Esterase 500 H Urine RBC 0-5 SEEN Urine WBC 50-100 SEEN Ur Squamous Epith Cells 25-50 SEEN Ur Transition Epith Cell 0-5 SEEN Ur Renal Epithelial Cell 0-5 SEEN Urine Bacteria 2+ Urine Mucus 0 SEEN - Medical Decision Making 65-year-old female presenting with generalized weakness. She also has nausea and vomiting that started today. Previously diagnosed with COVID-19. She cannot remember when her symptoms are. Patient is a poor informant because she barely speaks. Patient denies any respiratory complaints does not have any chest pain. Patient's chest x-ray is interpreted by myself shows no acute cardiopulmonary process. Patient given Zofran and had any vomiting episodes here. CBC shows white blood cell count 7.9, hemoglobin 12.8, hematocrit 39.6, platelets 124 and slightly low. GFR and electrolytes are normal. AST is slightly elevated at 42. Procalcitonin is negative. Patient's Covid testing here in the ED was negative however was able to obtain her previous Covid?19 send out's swab results as positive on 01/21/2021. This was attached to the chart. I did attempt to ambulate the patient however she is unsteady on her feet. Social work did call her who stated that he could not care for at home because he is physically weak from having COVID-19 himself and was just discharged from the hospital. Apparently his family had expressed concern to Adult Protective Services that he was unable to provide care for her. Given this set of circumstances and her weakness with COVID-19 she will need to be admitted for further care. Patient's urinalysis is contaminated but given that she is having nausea and vomiting I will treat her with Rocephin and do a urine culture which will be followed inpatient. Impression: 1. Generalized weakness 2. COVID-19 3. UTI ED Disposition - Plan for ED Patient: Referrals: Dorene Whittaker MD [Primary Care Provider] -
--- NOTE | 2021-01-29 14:03 | RAD_ITS ---
STUDY: X-RAY CHEST REASON FOR EXAM: Female, 65 years old. cough TECHNIQUE: Single AP portable view of the chest. COMPARISON: 07/13/2020 FINDINGS: Status post anterior cervical discectomy and fusion lower cervical spine. The lungs are clear and expanded. There is no demonstrated pleural abnormality. Normal size heart. Normal mediastinum and tomi. Normal visualized pulmonary arteries. Normal visualized aortic arch and descending thoracic aorta. Normal visualized thoracic spine. Normal visualized ribs, clavicles, and shoulders. There is no demonstrated abnormality of the visualized soft tissue structures of the upper abdomen. RAD/Chest 1 View (Portable) IMPRESSION: Normal x-ray examination of the chest. Electronically Signed: Ruddy Fairchild MD at 14:16 EDT Tel , Service support ,
[2021-01-29] MEDS: Ondansetron 4 MG/2 ML Vial IV ×3 (14:22→21:59)
[2021-01-29 14:39] LABS: Absolute Lymphocyte Count 1.11 X10^3/uL (0.83-4.51); Absolute Neutrophil Count 6.2 X10^3/uL (2.0-7.7); Eosinophil# 0.03 X10^3/uL; Eosinophils% 0.4 % (0-5); Hematocrit 39.6 % (37-47); Hemoglobin 12.8 g/dL (12.0-15.0); Lymphocyte # 1.11 X10^3/ul (4.0); Mean Corp Hgb Conc 32.3 g/dL (32-36); Mean Corpuscular Hgb 29.4 pg (27.0-32.0); Mean Platelet Vol. 10.2 fl (6.2-12.0); Monocyte% 7.6 % (0-10); NRBC Flagged by Analyzer 0 % (0-5); Neutrophil # 6.16 X10^3/uL (2.7-7.7); Neutrophil % 77.7 % (47-70); Platelet Count 124 K/mm3 (150-450); RBC Distribution Width CV 12.2 % (11.6-14.6); RBC Distribution Width SD 40.9 fl (35.1-43.9); Red Blood Count 4.35 M/mm3 (4.2-5.4); White Blood Count 7.9 K/mm3 (4.4-11.0)
--- NOTE | 2021-01-29 14:40 | CM.ED ---
SOCIAL WORK Referral Source: Adult Protective Services Reason for Referral: Discharge Planning Received call from Michael with Adult Protective Services ([phone]). Per Michael, report was made today to APS due to concerns for patient and . is primary caregiver for patient and was recently hospitalized due to COVID-19. Patient and have been at home and family voiced concerns that is not able to care for patient as they are both ill. was also brought to ER by squad and is being seen for weakness. Discussed case with Dr. Marcial. Patient is unable to sit up in bed and carrying on conversation. unable to continue to care for patient in the home at this time. Per Dr. Marcial, anticipate admission. Workup being completed. This worker to continue to follow. Enrique Garcia, AIRCRAFT LAY OUT WORKER, COURIER DRIVER
[2021-01-29 14:46] LABS: Mucous, Urine 0 SEEN /hpf (<or=2+)
[2021-01-29 14:49] LABS: Color, Urine Straw (Yellow); Glucose, Dipstick Normal (Normal); Ketone-Dipstick Negative (Negative); Leukocyte Esterase-Dipstick 500 /ul (Negative); Nitrite-Dipstick Negative (Negative); Occult Blood-Urine 25 /ul (Negative); Protein-Dipstick 15 mg/dl (Negative); Urine Bilirubin Dipstick Negative (Negative); Urine Clarity Cloudy (Clear); Urine Urobilinogen Normal (Normal)
[2021-01-29 14:59] LABS: ALB/GLOB Ratio 0.7 RATIO (0.9-2.4); AST(SGOT) 42 U/L (15-37); Alanine Aminotransfer ALT/SGPT 24 U/L (13-56); Alkaline Phosphatase 106 U/L (45-117); Anion Gap 6 (5-15); BUN 9 mg/dL (7-18); BUN/Creat Ratio 9.9 RATIO (10-20); Calcium,Total 8.8 mg/dL (8.5-10.1); Chloride 106 mmol/L (98-107); Creatinine, Serum 0.91 mg/dL (0.55-1.02); EST Glomerular Filtration Rate 66 mL/min (>60); Est Glom Filt Rate - Afr Amer 80 mL/min (>60); Estimated Creatinine Clearance 53.22 ml/min; Globulin 4.4 g/dL (2.2-4.2); Glucose 134 mg/dL (74-106); Lactic Acid 1.5 mmol/L (0.4-1.9); Potassium 4.3 mmol/L (3.5-5.1); Protein, Total 7.4 g/dL (6.4-8.2); Sodium Level 137 mmol/L (136-145)
[2021-01-29 15:05] LABS: Red Blood Cells-Urine 0-5 SEEN /hpf (0-5); Renal Epithelial Cells 0-5 SEEN /hpf (0-5); Squamous Epithelial Cells - UA 25-50 SEEN /hpf (5-10); Transitional Epithelial - Ur 0-5 SEEN /hpf (0-5); White Blood Cells 50-100 SEEN /hpf (0-5)
[2021-01-29 15:05] LABS: Procalcitonin 0.07 ng/mL (0.00-0.09)
[2021-01-29 15:06] LABS: Bacteria 2+ /hpf (None Seen)
--- NOTE | 2021-01-29 16:49 | CM.ED ---
SOCIAL WORK Updated by nurseJessica patient unsteady and did not tolerate ambulation well. Discussed with patient and . states unable to care for patient in home. and patient believe she would benefit from SNF. Requesting referral to [facility] as first choice and [facility] as second choice. Call to the referral line. Left message for Roxanne. Call to [facility], no admissions worker available at this time, recommending call back on Monday. Updated Dr. Marcial on the above.
[2021-01-29] MEDS: Ceftriaxone 1 GM/50 ML BAG IV (16:56)
--- NOTE | 2021-01-29 17:12 | PCM.HP.STD ---
Problem List (1) Debility Status: Acute (2) Anxiety Status: Chronic (3) Chronic back pain Status: Chronic Qualifiers: Back pain laterality: unspecified Sciatica laterality: sciatica laterality unspecified (4) Hyperlipidemia Status: Chronic Qualifiers: Hyperlipidemia type: unspecified Qualified Code(s): E78.5 - Hyperlipidemia, unspecified (5) Hypertension Status: Chronic Qualifiers: Hypertension type: essential hypertension Qualified Code(s): I10 - Essential (primary) hypertension History of Present Illness Date of Admission: 01/29/21 Chief Complaint: Generalised weakness The patient is a 65 year old F with multiple co-morbidities including hypertension, hyperlipidemia, history of stroke, Parkinsonism who comes in with generalized weakness. Patient was tested for COVID-19 on Monday. Her is also positive. And admits to nausea and vomiting. She is too weak and is unable to walk or sit up in bed. Her also has similar symptoms and is unable to care for her. Vitals in the ED were unremarkable. Her admitting blood work was also unremarkable. Troponins x1 is negative. Blood cultures are pending. Patient's rapid COVID-19 antigen test is negative but original COVID-19 PCR test is in patient's chart. In the ED, attempts at ambulating patient was unsuccessful. Adult Protective service apparently are involved. Social work consulted from ED. Past Medical History Past Medical History (Chronic Problems): Chronic Problems (Last Updated 01/25/21 @ 09:05 by Toya Egan) Bipolar disorder (Chronic) Obesity (BMI 30.0-34.9) (Chronic) Muscle spasm (Chronic) Fibromyalgia (Chronic) Anxiety (Chronic) Chronic back pain (Chronic) Hyperlipidemia (Chronic) Hypertension (Chronic) Medical History: Medical History (Last Updated 01/25/21 @ 09:05 by Toya Jignesh) Ruptured disk (Acute) M51.9 Parkinsonism (Suspected) G20 Bipolar disorder (Chronic) F31.9 Obesity (BMI 30.0-34.9) (Chronic) E66.9 Debility (Acute) R53.81 Left hemiparesis (Acute) G81.94 Muscle spasm (Chronic) M62.838 Acute ischemic stroke (Acute) I63.9 Fibromyalgia (Chronic) Anxiety (Chronic) F41.9 Chronic back pain (Chronic) M54.9, G89.29 Hyperlipidemia (Chronic) E78.5 Hypertension (Chronic) I10 Allergies buprenorphine HCl [From Suboxone] Allergy (Verified 01/29/21 12:57) Anaphylaxis erythromycin base [Erythromycin Base] Allergy (Verified 01/29/21 12:57) unsure naloxone HCl [From Suboxone] Allergy (Verified 01/29/21 12:57) Anaphylaxis trazodone Adverse Reaction (Verified 01/29/21 12:57) NEEDS FOLLOW-UP MUSCLE WEAKNESS Home Medications: Ambulatory Orders Medication Instructions Recorded Lamotrigine [Lamictal] 200 mg PO BID 12/13/13 Aripiprazole [Abilify] 2 mg PO DAILY 07/13/20 Atenolol 25 mg PO DAILY 07/13/20 Cholecalciferol (VIT D3) [Vitamin 3,000 unit PO DAILY 07/13/20 D3] Clonazepam [Klonopin] 0.5 mg PO BID 07/13/20 Perphenazine 2 mg PO QHS 07/13/20 Aspirin [Aspirin, Baby] 81 mg PO DAILY@0800 07/16/20 Atorvastatin Calcium [Lipitor] 40 mg PO QHS 07/16/20 Surgical History: Surgical History (Last Updated 01/25/21 @ 09:05 by Toya Egan) Hx of mastectomy (Resolved) Z90.10 Surgical History: noncontributory, mastectomy, - - Neck surgery. 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 Denies: Chills, Fever, Weight Change Eyes: Denies: Blurred vision, Cataracts, Conjunctivae Inflammation, Pain, Redness, Vision Change HEENT: Denies: Difficulty Hearing, Difficulty Swallowing, Head Aches, Hearing Changes, Sinus Congestion, Sinus Drainage, Sore Throat Cardiovascular: Denies: Chest Pain, Claudication, Light Headedness, Orthopnea, Palpitations, Paroxysmal Noc. Dyspnea Respiratory: Denies: Cough, Shortness of breath at rest, Shortness of breath upon exertion, Sputum production Gastrointestinal: Denies: Abdominal Pain, Hematemesis, Hematochezia, Nausea, Vomiting Genitourinary: Denies: Dysuria, Frequency, Incontinence Musculoskeletal: Denies: Joint Pain, Joint stiffness, Joint swelling, Joint Tenderness Skin: Denies: Rash, Wounds Neurological: Denies: Difficulty swallowing, Focal weakness, Numbness, Tingling Psychiatric: Denies: Anxiety, Depression, Homicidal Ideations, Suicidal Ideations Hematologic/ Lymphatic: Denies: Easy Bruising, Easy Bleeding VTE Information - Inpt Only VTE Present on Admission: No VTE Pharm Prophylaxis ordered?: Yes - Physical Exam Vitals/I&O's: Vital Signs Temp Pulse Resp BP Pulse Ox 97.5 F L 73 23 H 125/77 H 96 01/29/21 17:00 01/29/21 17:00 01/29/21 17:00 01/29/21 17:00 01/29/21 17:00 Oxygen Delivery Method Room Air Weight: 80.6 kg Body Mass Index (BMI) 30.4 Finger Stick Blood Glucose 125 Intake and Output for Last 24 Hours 01/27/21 01/28/21 01/29/21 23:59 23:59 23:59 Intake Total 500 / 500 Balance 500 / 500 General: Alert, Oriented x3, Cooperative, No apparent distress HEENT: Atraumatic, PERRLA, EOMI, Normocephalic Oral: Moist Mucosa Neck: Supple Lungs: Clear to auscultation, Normal air movement Cardiovascular: Regular rate, Regular Rhythm, Normal S1, Normal S2 Abdomen: Bowel Sounds Present, Soft, Non Tender, Non-Distended, No Hepato-splenomegaly Extremities: No edema Skin: No rashes Musculoskeletal: No Tenderness to Palpation of Joints or Extremities Lymphatic: No Cervical, Supraclavicular, or Inguinal Adenopathy Neurological: Cranial nerves II-XII grossly intact, Neuro grossly intact Psych/Mental Status: Normal Affect, Appropriate Microbiology Past 72 Hours 01/29/21 14:20 Mucosa - Nose SARS-CoV-2 Antigen (Rapid) - Final Laboratory Results 01/29/21 13:15: Sodium 137, Potassium 4.3, Chloride 106, Carbon Dioxide 25.0, Anion Gap 6, BUN 9, Creatinine 0.91, Estim Creat Clear Calc 53.22, Est GFR (MDRD) Af Amer 80, Est GFR (MDRD) Non-Af 66, BUN/Creatinine Ratio 9.9 L, Glucose 134 H, Calcium 8.8, Total Bilirubin 0.70, AST 42 H, ALT 24, Alkaline Phosphatase 106, Troponin I < 0.015, Total Protein 7.4, Albumin 3.0 L, Globulin 4.4 H, Albumin/Globulin Ratio 0.7 L 01/29/21 13:15: Lactic Acid 1.5 01/29/21 13:15: Procalcitonin 0.07 01/29/21 13:47: WBC Cancelled, Corrected WBC Cancelled, RBC Cancelled, Hgb Cancelled, Hct Cancelled, MCV Cancelled, MCH Cancelled, MCHC Cancelled, RDW Std Deviation Cancelled, RDW Coeff of Mckay Cancelled, Plt Count Cancelled, MPV Cancelled, Immature Gran % (Auto) Cancelled, Neut % (Auto) Cancelled, Lymph % (Auto) Cancelled, [place] % (Auto) Cancelled, Eos % (Auto) Cancelled, Baso % (Auto) Cancelled, Absolute Neuts (auto) Cancelled, Absolute Lymphs (auto) Cancelled, Total Counted Cancelled, Neutrophils % (Manual) Cancelled, Band Neutrophils % Cancelled, Lymphocytes % (Manual) Cancelled, Monocytes % (Manual) Cancelled, Eosinophils % (Manual) Cancelled, Basophils % (Manual) Cancelled, Metamyelocytes % Cancelled, Myelocytes % Cancelled, Promyelocytes % Cancelled, Blast Cells % Cancelled, Plasma Cell % (Manual) Cancelled, Other Cells % Cancelled, Nucleated RBC % Cancelled, Nucleated RBCs/100 WBC Cancelled, Differential Comment Cancelled, Diff Path Review Cancelled, Hypersegmented Neuts Cancelled, Atypical Lymphocytes Cancelled, Reactive Lymphocytes Cancelled, Smudge Cells Cancelled, Toxic Granulation Cancelled, Toxic Vacuolation Cancelled, Dohle Bodies Cancelled, [place] Rods Cancelled, Platelet Estimate Cancelled, Plt Morphology Comment Cancelled, RBC Morphology Cancelled, Polychromasia Cancelled, Hypochromasia Cancelled, Poikilocytosis Cancelled, Basophilic Stippling Cancelled, Anisocytosis Cancelled, Microcytosis Cancelled, Macrocytosis Cancelled, Spherocytes Cancelled, Sickle Cells Cancelled, Target Cells Cancelled, Tear Drop Cells Cancelled, Ovalocytes Cancelled, Stomatocytes Cancelled, [place] Bodies Cancelled, Shmuel Cells Cancelled, Bite Cells Cancelled, Crenated Cell Cancelled, Acanthocytes (Spur) Cancelled, Rouleaux Cancelled, Schistocytes Cancelled 01/29/21 13:47: Sodium Cancelled, Potassium Cancelled, Chloride Cancelled, Carbon Dioxide Cancelled, Anion Gap Cancelled, BUN Cancelled, Creatinine Cancelled, Estim Creat Clear Calc Cancelled, Est GFR (MDRD) Af Amer Cancelled, Est GFR (MDRD) Non-Af Cancelled, BUN/Creatinine Ratio Cancelled, Glucose Cancelled, Calcium Cancelled, Total Bilirubin Cancelled, AST Cancelled, ALT Cancelled, Alkaline Phosphatase Cancelled, Troponin I Cancelled, Total Protein Cancelled, Albumin Cancelled, Globulin Cancelled, Albumin/Globulin Ratio Cancelled 01/29/21 13:47: Lactic Acid Cancelled 01/29/21 13:47: Procalcitonin Cancelled 01/29/21 13:50: WBC 7.9, RBC 4.35, Hgb 12.8, Hct 39.6, MCV 91.0, MCH 29.4, MCHC 32.3, RDW Std Deviation 40.9, RDW Coeff of Mckay 12.2, Plt Count 124 L, MPV 10.2, Immature Gran % (Auto) 0.300, Neut % (Auto) 77.7 H, Lymph % (Auto) 14.0 L, [place] % (Auto) 7.6, Eos % (Auto) 0.4, Baso % (Auto) 0.0, Absolute Neuts (auto) 6.2, Absolute Lymphs (auto) 1.11, Nucleated RBC % 0 01/29/21 14:19: Urine Color Straw, Urine Clarity Cloudy, Urine pH 7.0, Ur Specific [place] 1.010, Urine Protein 15 H, Urine Glucose (UA) Normal, Urine Ketones Negative, Urine Occult Blood 25 H, Urine Nitrite Negative, Urine Bilirubin Negative, Urine Urobilinogen Normal, Ur Leukocyte Esterase 500 H, Urine RBC 0-5 SEEN, Urine WBC 50-100 SEEN, Ur Squamous Epith Cells 25-50 SEEN, Ur Transition Epith Cell 0-5 SEEN, Ur Renal Epithelial Cell 0-5 SEEN, Urine Bacteria 2+, Urine Mucus 0 SEEN Assessment/Plan All Active Problems (Last Updated 01/25/21 @ 09:05 by Toya Egan) Hx of mastectomy (Resolved) Ruptured disk (Acute) Debility (Acute) Left hemiparesis (Acute) Acute ischemic stroke (Acute) 1. Debility related to recent acute COVID-19 pneumonia, patient is unable to care for self at home. is also ill at home Admit to Covid floor, gentle IV fluids, PT/OT to evaluate and treat Social work/case management consult 2. Possible Acute UTI, cultures are pending, started on IV ceftriaxone, continue same 3. Hypertension/hyperlipidemia, continue on atenolol, atorvastatin 4. Bipolar disorder/parkinsonism, continue on Abilify, Klonopin, Lamictal, perphenazine 5. DVT PPx- Heparin SC Inpatient E&M: 09401 Init Hosp L2
--- NOTE | 2021-01-29 17:22 | CM.ED ---
[facility] TCU does not have a bed available until Monday. SW to follow. Enrique Garcia, MANUFACTURING TECHNOLOGY PROFESSOR, NURSING STAFFING COORDINATOR
[2021-01-29] MEDS: 0.9% Normal Saline 1,000 ML 75 ML IV (19:02)
[2021-01-29] MEDS: Atorvastatin Calcium 40 MG Tablet PO (20:35)
[2021-01-29] MEDS: Heparin Injection (Vial) 5,000 UNIT/ML VIAL 5000 UNIT SC (20:35)
[2021-01-29] MEDS: lamoTRIgine 100 MG Tablet 200 MG PO (20:35)
[2021-01-30] VITALS: PULSE 71
[2021-01-30 04:00] VITALS: BP 142/78; PULSE 66; PULSE 76; RESP 17; TEMP 37.2; O2SAT 95
[2021-01-30 04:50] LABS: Absolute Lymphocyte Count 1.54 X10^3/uL (0.83-4.51); Absolute Neutrophil Count 3.6 X10^3/uL (2.0-7.7); Basophil# 0.01 X10^3/uL; Basophil% 0.2 % (0-1); Eosinophil# 0.01 X10^3/uL; Eosinophils% 0.2 % (0-5); Hematocrit 39.6 % (37-47); Lymphocyte # 1.54 X10^3/ul (4.0); Mean Corp Hgb Conc 32.8 g/dL (32-36); Mean Corpuscular Hgb 29.5 pg (27.0-32.0); Mean Platelet Vol. 9.8 fl (6.2-12.0); Monocyte# 0.48 X10^3/uL; Monocyte% 8.4 % (0-10); NRBC Flagged by Analyzer 0 % (0-5); Neutrophil # 3.64 X10^3/uL (2.7-7.7); Neutrophil % 63.8 % (47-70); Platelet Count 141 K/mm3 (150-450); RBC Distribution Width CV 12.1 % (11.6-14.6); RBC Distribution Width SD 39.8 fl (35.1-43.9); White Blood Count 5.7 K/mm3 (4.4-11.0)
[2021-01-30 05:06] LABS: ALB/GLOB Ratio 0.7 RATIO (0.9-2.4); AST(SGOT) 25 U/L (15-37); Alanine Aminotransfer ALT/SGPT 21 U/L (13-56); Alkaline Phosphatase 102 U/L (45-117); Anion Gap 5 (5-15); BUN 7 mg/dL (7-18); BUN/Creat Ratio 9.5 RATIO (10-20); Calcium,Total 8.7 mg/dL (8.5-10.1); Chloride 108 mmol/L (98-107); Creatinine, Serum 0.74 mg/dL (0.55-1.02); EST Glomerular Filtration Rate 84 mL/min (>60); Est Glom Filt Rate - Afr Amer 102 mL/min (>60); Estimated Creatinine Clearance 65.45 ml/min; Globulin 4.2 g/dL (2.2-4.2); Glucose 109 mg/dL (74-106); Potassium 3.8 mmol/L (3.5-5.1); Protein, Total 7.2 g/dL (6.4-8.2); Sodium Level 140 mmol/L (136-145)
[2021-01-30 07:00] VITALS: PULSE 60
[2021-01-30 09:13] VITALS: BP 138/66; PULSE 68; RESP 18; TEMP 36.2; O2SAT 95
[2021-01-30] MEDS: Ceftriaxone 1 GM/50 ML BAG IV (09:18)
[2021-01-30] MEDS: Atenolol 25 MG Tablet PO (09:20)
[2021-01-30] MEDS: Aspirin 81 MG TAB.CHEW PO (09:20)
[2021-01-30] MEDS: lamoTRIgine 100 MG Tablet 200 MG PO ×2 (09:20→21:02)
[2021-01-30] MEDS: clonazePAM 0.5 MG Tablet PO ×2 (09:20→21:02)
[2021-01-30] MEDS: ARIPiprazole 2 MG Tablet PO (09:21)
[2021-01-30] MEDS: Heparin Injection (Vial) 5,000 UNIT/ML VIAL 5000 UNIT SC ×2 (09:21→21:01)
--- NOTE | 2021-01-30 09:25 | PN_ITS ---
Subjective: Chief complaint: Follow-up after admission for physical debility and functional decline, nausea and vomiting following diagnosis of COVID-19 infection. Patient seen and examined. No acute events overnight. This morning, she is feeling better, no more nausea or vomiting. Still having weakness and fatigue with no improvement. She has been afebrile, blood pressure and heart are stable, pulse ox is 95% on room air. - Physical Exam Vitals/I&O's: Vital Signs Temp Pulse Resp BP Pulse Ox 97.2 F L 68 18 138/66 H 95 01/30/21 09:13 01/30/21 09:13 01/30/21 09:13 01/30/21 09:13 01/30/21 09:13 Oxygen Delivery Method Room Air Weight: 170 lb 14.4 oz Body Mass Index (BMI) 28.9 Finger Stick Blood Glucose 125 Intake and Output for Last 24 Hours 01/28/21 01/29/21 01/30/21 23:59 23:59 23:59 Intake Total 610 / 610 Output Total 350 / 350 600 / 600 Balance 260 / 260 -600 / -600 General: Alert, Oriented x3, Cooperative, No apparent distress HEENT: Atraumatic, PERRLA, EOMI, Normocephalic Oral: Moist Mucosa, No Gingival or Mucosal Lesions/ Ulcerations Neck: Supple, No JVD, Negative Carotid Bruits, Trachea Midline, Thyroid Normal Size and Texture Lungs: Clear to auscultation, No rhonchi, No wheeze, No rales, Diminished Cardiovascular: Regular rate, Regular Rhythm, Normal S1, Normal S2, PMI Normal Abdomen: Bowel Sounds Present, Soft, Non Tender, Non-Distended, No Hepato- splenomegaly, Obese Extremities: No clubbing, No cyanosis, Edema - Trace edema. Skin: No rashes, No breakdown Lymphatic: No Cervical, Supraclavicular, or Inguinal Adenopathy Neurological: Cranial nerves II-XII grossly intact, Motor Exam 5/5 strength throughout Psych/Mental Status: Normal Affect, Appropriate Microbiology Past 72 Hours 01/29/21 14:20 Mucosa - Nose SARS-CoV-2 Antigen (Rapid) - Final Laboratory Results 01/29/21 13:15: Sodium 137, Potassium 4.3, Chloride 106, Carbon Dioxide 25.0, Anion Gap 6, BUN 9, Creatinine 0.91, Estim Creat Clear Calc 53.22, Est GFR (MDRD) Af Amer 80, Est GFR (MDRD) Non-Af 66, BUN/Creatinine Ratio 9.9 L, Glucose 134 H, Calcium 8.8, Total Bilirubin 0.70, AST 42 H, ALT 24, Alkaline Phosphatase 106, Troponin I < 0.015, Total Protein 7.4, Albumin 3.0 L, Globulin 4.4 H, Albumin/Globulin Ratio 0.7 L 01/29/21 13:15: Lactic Acid 1.5 01/29/21 13:15: Procalcitonin 0.07 01/29/21 13:47: WBC Cancelled, Corrected WBC Cancelled, RBC Cancelled, Hgb Cancelled, Hct Cancelled, MCV Cancelled, MCH Cancelled, MCHC Cancelled, RDW Std Deviation Cancelled, RDW Coeff of Mckay Cancelled, Plt Count Cancelled, MPV Cancelled, Immature Gran % (Auto) Cancelled, Neut % (Auto) Cancelled, Lymph % (Auto) Cancelled, [place] % (Auto) Cancelled, Eos % (Auto) Cancelled, Baso % (Auto) Cancelled, Absolute Neuts (auto) Cancelled, Absolute Lymphs (auto) Cancelled, Total Counted Cancelled, Neutrophils % (Manual) Cancelled, Band Neutrophils % Cancelled, Lymphocytes % (Manual) Cancelled, Monocytes % (Manual) Cancelled, Eosinophils % (Manual) Cancelled, Basophils % (Manual) Cancelled, Metamyelocytes % Cancelled, Myelocytes % Cancelled, Promyelocytes % Cancelled, Blast Cells % Cancelled, Plasma Cell % (Manual) Cancelled, Other Cells % Cancelled, Nucleated RBC % Cancelled, Nucleated RBCs/100 WBC Cancelled, Differential Comment Cancelled, Diff Path Review Cancelled, Hypersegmented Neuts Cancelled, Atypical Lymphocytes Cancelled, Reactive Lymphocytes Cancelled, Smudge Cells Cancelled, Toxic Granulation Cancelled, Toxic Vacuolation Cancelled, Dohle Bodies Cancelled, [place] Rods Cancelled, Platelet Estimate Cancelled, Plt Morphology Comment Cancelled, RBC Morphology Cancelled, Polychromasia Cancelled, Hypochromasia Cancelled, Poikilocytosis Cancelled, Basophilic Stippling Cancelled, Anisocytosis Cancelled, Microcytosis Cancelled, Macrocytosis Cancelled, Spherocytes Cancelled, Sickle Cells Cancelled, Target Cells Cancelled, Tear Drop Cells Cancelled, Ovalocytes Cancelled, Stomatocytes Cancelled, [place] Bodies Cancelled, Shmuel Cells Cancelled, Bite Cells Cancelled, Crenated Cell Cancelled, Acanthocytes (Spur) Cancelled, Rouleaux Cancelled, Schistocytes Cancelled 01/29/21 13:47: Sodium Cancelled, Potassium Cancelled, Chloride Cancelled, Carbon Dioxide Cancelled, Anion Gap Cancelled, BUN Cancelled, Creatinine Cancelled, Estim Creat Clear Calc Cancelled, Est GFR (MDRD) Af Amer Cancelled, Est GFR (MDRD) Non-Af Cancelled, BUN/Creatinine Ratio Cancelled, Glucose Cancelled, Calcium Cancelled, Total Bilirubin Cancelled, AST Cancelled, ALT Cancelled, Alkaline Phosphatase Cancelled, Troponin I Cancelled, Total Protein Cancelled, Albumin Cancelled, Globulin Cancelled, Albumin/Globulin Ratio Cancelled 01/29/21 13:47: Lactic Acid Cancelled 01/29/21 13:47: Procalcitonin Cancelled 01/29/21 13:50: WBC 7.9, RBC 4.35, Hgb 12.8, Hct 39.6, MCV 91.0, MCH 29.4, MCHC 32.3, RDW Std Deviation 40.9, RDW Coeff of Mckay 12.2, Plt Count 124 L, MPV 10.2, Immature Gran % (Auto) 0.300, Neut % (Auto) 77.7 H, Lymph % (Auto) 14.0 L, [place] % (Auto) 7.6, Eos % (Auto) 0.4, Baso % (Auto) 0.0, Absolute Neuts (auto) 6.2, Absolute Lymphs (auto) 1.11, Nucleated RBC % 0 01/29/21 14:19: Urine Color Straw, Urine Clarity Cloudy, Urine pH 7.0, Ur Specific [place] 1.010, Urine Protein 15 H, Urine Glucose (UA) Normal, Urine Ketones Negative, Urine Occult Blood 25 H, Urine Nitrite Negative, Urine Bilirubin Negative, Urine Urobilinogen Normal, Ur Leukocyte Esterase 500 H, Urine RBC 0-5 SEEN, Urine WBC 50-100 SEEN, Ur Squamous Epith Cells 25-50 SEEN, Ur Transition Epith Cell 0-5 SEEN, Ur Renal Epithelial Cell 0-5 SEEN, Urine Bacteria 2+, Urine Mucus 0 SEEN 01/30/21 04:25: WBC 5.7, RBC 4.40, Hgb 13.0, Hct 39.6, MCV 90.0, MCH 29.5, MCHC 32.8, RDW Std Deviation 39.8, RDW Coeff of Mckay 12.1, Plt Count 141 L, MPV 9.8, Immature Gran % (Auto) 0.400, Neut % (Auto) 63.8, Lymph % (Auto) 27.0, [place] % (Auto) 8.4, Eos % (Auto) 0.2, Baso % (Auto) 0.2, Absolute Neuts (auto) 3.6, Absolute Lymphs (auto) 1.54, Nucleated RBC % 0 01/30/21 04:25: Sodium 140, Potassium 3.8, Chloride 108 H, Carbon Dioxide 27.0, Anion Gap 5, BUN 7, Creatinine 0.74, Estim Creat Clear Calc 65.45, Est GFR (MDRD) Af Amer 102, Est GFR (MDRD) Non-Af 84, BUN/Creatinine Ratio 9.5 L, Glucose 109 H, Calcium 8.7, Total Bilirubin 0.50, AST 25, ALT 21, Alkaline Phosphatase 102, Total Protein 7.2, Albumin 3.0 L, Globulin 4.2, Albumin/Globulin Ratio 0.7 L Current Medications Acetaminophen (Acetaminophen 325 Mg Tablet) 650 mg PO Q6H PRN PRN PRN Reason: Pain Score 1-10/Temp > 100.7 F Al Hydroxide/Mg Hydroxide (Mag Hydrox/Al Hydrox/Simeth 30 Ml Udc) 30 ml PO Q6H PRN PRN PRN Reason: Gastric Burning Albuterol Sulfate (Albuterol 2.5 Mg/3 Ml Vial.Neb.) 2.5 mg INHALATION Q2H PRN PRN PRN Reason: Shortness of Breath/Wheezing Aripiprazole (Aripiprazole 2 Mg Tablet) 2 mg PO DAILY [facility] Last Admin: 01/30/21 09:21 Dose: 2 mg Documented by: Aspirin (Aspirin 81 Mg Tab.Chew) 81 mg PO DAILY@0800 [facility] Last Admin: 01/30/21 09:20 Dose: 81 mg Documented by: Atenolol (Atenolol 25 Mg Tablet) 25 mg PO DAILY [facility] Last Admin: 01/30/21 09:20 Dose: 25 mg Documented by: Atorvastatin Calcium (Atorvastatin Calcium 40 Mg Tablet) 40 mg PO QHS [facility] Last Admin: 01/29/21 20:35 Dose: 40 mg Documented by: Cholecalciferol (Cholecalciferol (Vit D3) 1,000 Unit (25mcg)) 3,000 unit PO DAILY [facility] Last Admin: 01/30/21 09:20 Dose: 3,000 unit Documented by: Clonazepam (Clonazepam 0.5 Mg Tablet) 0.5 mg PO BID [facility] Last Admin: 01/30/21 09:20 Dose: 0.5 mg Documented by: Heparin Sodium (Porcine) (Heparin Injection (Vial) 5,000 Unit/Ml Vial) 5,000 unit SC Q12 [facility] Last Admin: 01/30/21 09:21 Dose: 5,000 unit Documented by: Ceftriaxone Sodium (Rocephin) 1 gm in 50 mls @ 100 mls/hr IV Q24 [facility] Last Admin: 01/30/21 09:18 Dose: 100 mls/hr Documented by: Lamotrigine (Lamotrigine 100 Mg Tablet) 200 mg PO BID [facility] Last Admin: 01/30/21 09:20 Dose: 200 mg Documented by: Ondansetron HCl (Ondansetron 4 Mg/2 Ml Vial) 4 mg IV Q8H PRN PRN PRN Reason: NAUSEA/VOMITING Last Admin: 01/29/21 21:59 Dose: 4 mg Documented by: Perphenazine (Perphenazine 2 Mg Tablet) 2 mg PO QHS [facility] Senna/Docusate Sodium (Senna/Docusate Sodium 1 Tablet) 2 tablet PO BID PRN PRN PRN Reason: Constipation Sodium Chloride (0.9% Saline Lock 10 Ml Syringe) 10 - 40 ml IV UD PRN PRN Reason: SALINE FLUSH Medical Necessity - Tobacco Use Smoking Status: Never smoker Tobacco Use: Cigarettes Assessment/Plan This is a 65 years old female patient presented to the emergency room because of nausea, vomiting, weakness and fatigue, was tested positive for COVID-19 this past Monday, January 25, 2021 and was admitted for debility, functional decline and also found to have acute cystitis. #1 physical debility/functional decline: Secondary to COVID-19 infection. Patient has been very weak and fatigued. Today, she denies any more nausea or vomiting. She is still weak and tired but minimally improved. Her vital signs are stable, afebrile. Routine blood work was unremarkable. Plan: Discontinue IV fluids, start diet, and encourage oral intake, ambulate, PT OT, behavioral health case manager and social secretary consult for discharge planning #2 COVID-19 infection: Patient tested positive for COVID-19 on January 25, 2021. Apart from weakness and fatigue with some nausea, no other symptoms. Denies chest pain or shortness of breath. Chest x-ray showed no acute findings. She has been afebrile, she is on room air. Other vital signs are stable. Her symptoms started on January 20, 2021. She is on isolation precautions. No indication to start her on Decadron or IV remdesivir. Plan as above. #3 acute cystitis: She is on IV Rocephin. Urine culture and blood culture are pending. She has been afebrile, no leukocytosis. #4 hypertension: Blood pressure stable, continue atenolol. #5 hyperlipidemia: Continue statins. #6 Parkinson's disease/bipolar disorder: Stable, continue Abilify, Klonopin, Lamictal and perphenazine. #7 DVT prophylaxis: This note was generated with [employer] dictation software. It may contain incorrect words, spelling, and punctuation that were not noted in checking the note before signing. Inpatient E&M: 03904 Subs Hosp L2
--- NOTE | 2021-01-30 10:50 | CM.UR ---
Addendum entered by Mary Dyson 01/30/21 11:53: GERARDO Medina contacted this RN stating that the patient has a near fall. States it took 2 of them to keep her from falling. She leaned to side the entire time from bed to chair. States will not be able to manage her at home after all and she will need SNF. She is on TCU list and no bed is available til Monday. Precert is also needed. Jasvir Dyson RN, CCM. Original Note: GERARDO Medina reported to me that she has spoke with and he is feeling better. States that patient can probably return home and he can care for her again. States that she also spoke with family who states that there is no family locally that is able to help. GERARDO Medina recommended HHC. Alerted ALEXIA Choudhary that we need to change patient to SNF vs HHC. Explained I'll arrange for HHC so that it can be ready if patient is ready for discharge and they want to do home w/HHC instead. Jasvir Dyson RN, CCM.
[2021-01-30 13:36] VITALS: BP 113/59; PULSE 74; RESP 16; TEMP 36.6; O2SAT 94
--- NOTE | 2021-01-30 15:23 | CASEMGMT ---
SOCIAL WORK Call to patient's to discuss discharge planning and educate on SNF's and COVID-19. aware that many nursing homes are not accepting COVID-19 positive patients. Reviewed list of facilities that may accommodate patient with [employer] insurance. Informed SW will follow up on Monday. EBONI Koehler, STEREOTYPER HELPER
[2021-01-30 21:00] VITALS: BP 150/76; PULSE 73; RESP 16; TEMP 36.8; O2SAT 96
[2021-01-30] MEDS: Atorvastatin Calcium 40 MG Tablet PO (21:02)
[2021-01-31 03:00] VITALS: BP 153/79; PULSE 79; RESP 18; TEMP 36.6; O2SAT 94
[2021-01-31 08:58] VITALS: BP 137/70; PULSE 84; RESP 16; TEMP 36.7; O2SAT 94
--- NOTE | 2021-01-31 09:26 | PN_ITS ---
Subjective: Chief complaint: Follow-up after admission for physical debility and functional decline, nausea and vomiting following diagnosis of COVID-19 infection. Patient seen and examined. No acute events overnight. She has no more nausea or vomiting. No new complaints. Nursing staff reported that she has been very weak, needed mental health assistant even to go out of bed to chair. Patient will need to go to [facility]pc facility. Her vitals are stable, afebrile, on room air. - Physical Exam Vitals/I&O's: Vital Signs Temp Pulse Resp BP Pulse Ox 97.8 F 79 18 153/79 H 94 01/31/21 03:00 01/31/21 03:00 01/31/21 03:00 01/31/21 03:00 01/31/21 03:00 Oxygen Delivery Method Room Air Weight: 170 lb 13.732 oz Body Mass Index (BMI) 28.9 Finger Stick Blood Glucose 125 Intake and Output for Last 24 Hours 01/29/21 01/30/21 01/31/21 23:59 23:59 23:59 Intake Total 610 / 610 1292.5 / 1292.5 Output Total 350 / 350 600 / 600 Balance 260 / 260 692.5 / 692.5 General: Alert, Oriented x3, Cooperative, No apparent distress HEENT: Atraumatic, PERRLA, EOMI, Normocephalic Oral: Moist Mucosa, No Gingival or Mucosal Lesions/ Ulcerations Neck: Supple, No JVD, Negative Carotid Bruits, Trachea Midline, Thyroid Normal Size and Texture Lungs: Clear to auscultation, No rhonchi, No wheeze, No rales, Diminished Cardiovascular: Regular rate, Regular Rhythm, Normal S1, Normal S2, PMI Normal Abdomen: Bowel Sounds Present, Soft, Non Tender, Non-Distended, No Hepato- splenomegaly Extremities: No clubbing, No cyanosis, No edema Skin: No rashes, No breakdown Lymphatic: No Cervical, Supraclavicular, or Inguinal Adenopathy Neurological: Cranial nerves II-XII grossly intact, Neuro grossly intact Psych/Mental Status: Normal Affect, Appropriate, Alert and oriented to time, place, person, mood and affect Microbiology Past 72 Hours 01/29/21 14:20 Mucosa - Nose SARS-CoV-2 Antigen (Rapid) - Final Current Medications Acetaminophen (Acetaminophen 325 Mg Tablet) 650 mg PO Q6H PRN PRN PRN Reason: Pain Score 1-10/Temp > 100.7 F Al Hydroxide/Mg Hydroxide (Mag Hydrox/Al Hydrox/Simeth 30 Ml Udc) 30 ml PO Q6H PRN PRN PRN Reason: Gastric Burning Albuterol Sulfate (Albuterol 2.5 Mg/3 Ml Vial.Neb.) 2.5 mg INHALATION Q2H PRN PRN PRN Reason: Shortness of Breath/Wheezing Aripiprazole (Aripiprazole 2 Mg Tablet) 2 mg PO DAILY [facility] Last Admin: 01/30/21 09:21 Dose: 2 mg Documented by: Aspirin (Aspirin 81 Mg Tab.Chew) 81 mg PO DAILY@0800 [facility] Last Admin: 01/30/21 09:20 Dose: 81 mg Documented by: Atenolol (Atenolol 25 Mg Tablet) 25 mg PO DAILY [facility] Last Admin: 01/30/21 09:20 Dose: 25 mg Documented by: Atorvastatin Calcium (Atorvastatin Calcium 40 Mg Tablet) 40 mg PO QHS [facility] Last Admin: 01/30/21 21:02 Dose: 40 mg Documented by: Cholecalciferol (Cholecalciferol (Vit D3) 1,000 Unit (25mcg)) 3,000 unit PO DAILY [facility] Last Admin: 01/30/21 09:20 Dose: 3,000 unit Documented by: Clonazepam (Clonazepam 0.5 Mg Tablet) 0.5 mg PO BID [facility] Last Admin: 01/30/21 21:02 Dose: 0.5 mg Documented by: Heparin Sodium (Porcine) (Heparin Injection (Vial) 5,000 Unit/Ml Vial) 5,000 unit SC Q12 [facility] Last Admin: 01/30/21 21:01 Dose: 5,000 unit Documented by: Ceftriaxone Sodium (Rocephin) 1 gm in 50 mls @ 100 mls/hr IV Q24 [facility] Last Infusion: 01/30/21 09:48 Dose: Infused Documented by: Lamotrigine (Lamotrigine 100 Mg Tablet) 200 mg PO BID [facility] Last Admin: 01/30/21 21:02 Dose: 200 mg Documented by: Ondansetron HCl (Ondansetron 4 Mg/2 Ml Vial) 4 mg IV Q8H PRN PRN PRN Reason: NAUSEA/VOMITING Last Admin: 01/29/21 21:59 Dose: 4 mg Documented by: Perphenazine (Perphenazine 2 Mg Tablet) 2 mg PO QHS [facility] Senna/Docusate Sodium (Senna/Docusate Sodium 1 Tablet) 2 tablet PO BID PRN PRN PRN Reason: Constipation Sodium Chloride (0.9% Saline Lock 10 Ml Syringe) 10 - 40 ml IV UD PRN PRN Reason: SALINE FLUSH Medical Necessity - Tobacco Use Smoking Status: Never smoker Tobacco Use: Cigarettes Assessment/Plan This is a 65 years old female patient presented to the emergency room because of nausea, vomiting, weakness and fatigue, was tested positive for COVID-19 this past Monday, January 25, 2021 and was admitted for debility, functional decline and also found to have acute cystitis. #1 physical debility/functional decline: Secondary to COVID-19 infection. Today, she has no complaints, vital signs are stable, afebrile. Patient needed significant assistance at the bedside to w sit on the chair. Routine blood work was unremarkable. We are waiting insurance approval for placement to SNF. #2 COVID-19 infection: She has no symptoms such as cough or shortness of breath, no fever. Patient tested positive for COVID-19 on January 25, 2021. Chest x-ray showed no acute findings. She has been afebrile, she is on room air. Other vital signs are stable. Her symptoms started on January 20, 2021. She is on isolation precautions. Plan to continue isolation precautions for 20 days from the onset of symptoms which is January 20. #3 acute cystitis: Remained on IV Rocephin. Urine culture and blood culture are pending. She has been afebrile, no leukocytosis. #4 hypertension: Blood pressure stable, continue atenolol. #5 hyperlipidemia: Continue statins. #6 Parkinson's disease/bipolar disorder: Stable, continue Abilify, Klonopin, Lamictal and perphenazine. #7 DVT prophylaxis: This note was generated with [employer] dictation software. It may contain incorrect words, spelling, and punctuation that were not noted in checking the note before signing. Inpatient E&M: 35906 Sub[facility] Hosp L2
[2021-01-31] MEDS: Ceftriaxone 1 GM/50 ML BAG IV (09:32)
[2021-01-31] MEDS: ARIPiprazole 2 MG Tablet PO (09:35)
[2021-01-31] MEDS: Aspirin 81 MG TAB.CHEW PO (09:35)
[2021-01-31] MEDS: Atenolol 25 MG Tablet PO (09:35)
[2021-01-31] MEDS: lamoTRIgine 100 MG Tablet 200 MG PO ×2 (09:35→20:14)
[2021-01-31] MEDS: clonazePAM 0.5 MG Tablet PO ×2 (09:35→20:15)
[2021-01-31] MEDS: Heparin Injection (Vial) 5,000 UNIT/ML VIAL 5000 UNIT SC ×2 (09:36→20:13)
[2021-01-31] MEDS: 0.9% Saline Lock 10 ML Syringe IV ×2 (09:43→13:28)
[2021-01-31 12:49] VITALS: BP 132/72; PULSE 68; RESP 16; TEMP 36.8; O2SAT 94
[2021-01-31] MEDS: Ondansetron 4 MG/2 ML Vial IV (12:55)
[2021-01-31 20:00] VITALS: BP 154/73; PULSE 78; RESP 16; TEMP 36.6; O2SAT 96
[2021-01-31] MEDS: Atorvastatin Calcium 40 MG Tablet PO (20:14)
[2021-01-31] MEDS: ChlorproMAZINE 25 MG Tablet 12.5 MG PO (20:15)
[2021-02-01 02:00] VITALS: BP 140/92; PULSE 69; RESP 18; TEMP 36.8; O2SAT 94
[2021-02-01 08:00] VITALS: BP 159/85; PULSE 72; PULSE 76; RESP 16; TEMP 36.6; O2SAT 94
[2021-02-01] MEDS: Ceftriaxone 1 GM/50 ML BAG IV (08:22)
[2021-02-01] MEDS: Heparin Injection (Vial) 5,000 UNIT/ML VIAL 5000 UNIT SC ×2 (08:25→21:02)
[2021-02-01] MEDS: ARIPiprazole 2 MG Tablet PO (08:28)
[2021-02-01] MEDS: lamoTRIgine 100 MG Tablet 200 MG PO ×2 (08:29→21:02)
[2021-02-01] MEDS: Aspirin 81 MG TAB.CHEW PO (08:30)
[2021-02-01] MEDS: clonazePAM 0.5 MG Tablet PO ×2 (08:30→21:05)
[2021-02-01] MEDS: Atenolol 25 MG Tablet PO (08:30)
--- NOTE | 2021-02-01 09:05 | CASEMGMT ---
Addendum entered by Amber Higuera 02/01/21 14:46: ALEXIA called Toya back at [facility] to see if she got any clarification, message left. SW will continue to follow. ALEXANDRA Floyd Addendum entered by Amber Higuera 02/01/21 14:05: SW called Toya at [facility] [place]. She states that they no longer have a COVID unit but that [facility] should be able to take pt since she is 11 days out from her positive test. SW explained that Katharine at [facility] said no, it had to be 14 days. Toya states it's 10 days with a day of improvement. SW explained pt is not symptomatic, on room air, no fevers. She is going to call her liaison and let jonathan HALE know for certain, and call this SW back. SW will continue to follow, waiting for a call back. ALEXANDRA Floyd Addendum entered by Amber Higuera 02/01/21 13:16: SW spoke w/Charlee at [facility]. They also cannot take pts until 14 days out from the positive COVID test. SW called [facility], spoke w/Mariya. They would consider pt, and will review referral. SW spoke earlier rahel/Katharine at [facility] and she had also said [facility] may be able to take pt as they take [place] and are taking COVID+. SW called again, explained that [facility], explained that [facility] [place] may be able, or [facility]. would prefer [facility] [place]. SW called Katharine back from [facility], she will forward the referral to [facility]. The contact there is Ifeoma or Lisandra, . SW will follow up shortly. ALEXANDRA Floyd Addendum entered by Amber Higuera 02/01/21 12:25: SW spoke w/Katharine from [facility], they no longer have a COVID unit and pt would need to be 14 days out from her positive test for them to take pt, pt is 11 days out. SW called , explained the above. His next choice is [facility]. SW faxed referral, called and left message to call this SW. SW will continue to follow. ALEXANDRA Floyd Original Note: SW called [facility], even if pt has a second negative COVID test there is no bed availability until the middle to end of the week, and pt is ready for discharge. SW called , reviewed nursing homes in the geographic area that take pt's insurance and reviewed the star ratings also. chose [facility] to send referral. SW called [facility], faxed referral. SW will wait to hear back if they can take pt, SW will continue to follow. ALEXANDRA Floyd
--- NOTE | 2021-02-01 11:28 | CASEMGMT ---
SOCIAL WORK Call to Michael with Adult Protective Services to update on patient's status and plan for SNF at discharge. Informed referral has been made to [facility] [place]. Rodriguez requesting SW update SNF that APS is following. MAYNOR Clark. Ketan. Jose, EQUITY RESEARCH ASSOCIATE, COMPUTER INSTALLER
[2021-02-01 11:52] VITALS: BP 134/69; PULSE 83; RESP 16; TEMP 36.3; O2SAT 94
[2021-02-01 14:00] VITALS: PULSE 80
--- NOTE | 2021-02-01 14:47 | CASEMGMT ---
Pt had stated at admission that she does have LW/POA but is not able to bring in the documents, and Filemon Knapp is healthcare POA. ALEXANDRA Floyd
[2021-02-01 15:17] VITALS: BP 131/57; PULSE 80; RESP 18; TEMP 36.6; O2SAT 97
--- NOTE | 2021-02-01 15:37 | CASEMGMT ---
Addendum entered by Amber Higuera 02/01/21 15:56: SW called Katharine again at [facility], they can take pt now with the clarification of dates, and will start precert, it is anticipated they will get precert and pt can go over to [facility] tomorrow. SW called pt's to let him know that [facility] can now take pt and pt will hopefully get precert from insurance tomorrow and will be able to go over tomorrow. SW explained to pt's there was confusion about when pt tested positive, but we have clarified it now and pt, as long as she gets precert, will go to [facility] tomorrow. states understanding. SW will follow up w/facility and pt's tomorrow. ALEXANDRA Floyd Original Note: ALEXIA called Katharine from [facility], message left. Toya from [facility] called back and said the other facility misunderstood when pt was positive for COVID and thought it was the 15th. ALEXIA clarified that SW sent the lab test showing pt was positive on the 11. SW explained will refax this lab value along with the doctor note that also states pt's positive test was on the 11th. Katharine is to call this SW back. ALEXANDRA Floyd
--- NOTE | 2021-02-01 16:38 | PN_ITS ---
Subjective: Patient was seen and examined today, she is on room air and has no complaints of any shortness of breath, chills, or fever. We are currently awaiting approval for placement in a longterm facility for temporary longterm services. - Physical Exam Vitals/I&O's: Vital Signs Temp Pulse Resp BP Pulse Ox 97.8 F 80 18 131/57 H 97 02/01/21 15:17 02/01/21 15:17 02/01/21 15:17 02/01/21 15:17 02/01/21 15:17 Oxygen Delivery Method Room Air Weight: 77.5 kg Body Mass Index (BMI) 28.9 Finger Stick Blood Glucose 125 Intake and Output for Last 24 Hours 01/30/21 01/31/21 02/01/21 23:59 23:59 23:59 Intake Total 1292.5 / 1292.5 170 / 170 400 / 400 Output Total 600 / 600 1300 / 1300 1200 / 1200 Balance 692.5 / 692.5 -1130 / -1130 -800 / -800 General: Alert, Oriented x3, Cooperative, No apparent distress, Well developed, Well nourished HEENT: Atraumatic, PERRLA, EOMI, Normocephalic Oral: Moist Mucosa Neck: Supple, No JVD, No Nuchal Rigidity, Trachea Midline, Thyroid Normal Size and Texture Lungs: Clear to auscultation, Normal air movement, No rhonchi, No wheeze, No rales Cardiovascular: Regular rate, Regular Rhythm, Normal S1, Normal S2, No murmurs Abdomen: Bowel Sounds Present, Soft, Non Tender, Non-Distended Extremities: No clubbing, No cyanosis, No edema, Capillary Refill Less than 3 Seconds Skin: No rashes, No breakdown Musculoskeletal: No Tenderness to Palpation of Joints or Extremities Neurological: Cranial nerves II-XII grossly intact, Neuro grossly intact, Sensory exam intact to light touch and pain, Coordination normal Psych/Mental Status: Normal Affect, Appropriate, Alert and oriented to time, place, person, mood and affect Microbiology Past 72 Hours 01/29/21 16:00 Blood Culture (Wb) - Anticubital Left Blood Culture - Preliminary No growth in 48 hours. 01/29/21 14:19 Urine, Clean Catch Urine Culture - Final Mixed Gram Positive Organisms 01/29/21 14:20 Mucosa - Nose SARS-CoV-2 Antigen (Rapid) - Final Current Medications Acetaminophen (Acetaminophen 325 Mg Tablet) 650 mg PO Q6H PRN PRN PRN Reason: Pain Score 1-10/Temp > 100.7 F Al Hydroxide/Mg Hydroxide (Mag Hydrox/Al Hydrox/Simeth 30 Ml Udc) 30 ml PO Q6H PRN PRN PRN Reason: Gastric Burning Albuterol Sulfate (Albuterol 2.5 Mg/3 Ml Vial.Neb.) 2.5 mg INHALATION Q2H PRN PRN PRN Reason: Shortness of Breath/Wheezing Aripiprazole (Aripiprazole 2 Mg Tablet) 2 mg PO DAILY [facility] Last Admin: 02/01/21 08:28 Dose: 2 mg Documented by: Aspirin (Aspirin 81 Mg Tab.Chew) 81 mg PO DAILY@0800 [facility] Last Admin: 02/01/21 08:30 Dose: 81 mg Documented by: Atenolol (Atenolol 25 Mg Tablet) 25 mg PO DAILY [facility] Last Admin: 02/01/21 08:30 Dose: 25 mg Documented by: Atorvastatin Calcium (Atorvastatin Calcium 40 Mg Tablet) 40 mg PO QHS [facility] Last Admin: 01/31/21 20:14 Dose: 40 mg Documented by: Chlorpromazine HCl (Chlorpromazine 25 Mg Tablet) 12.5 mg PO QHS [facility] Last Admin: 01/31/21 20:15 Dose: 12.5 mg Documented by: Cholecalciferol (Cholecalciferol (Vit D3) 25 Mcg Tablet) 75 mcg PO DAILY [facility] Clonazepam (Clonazepam 0.5 Mg Tablet) 0.5 mg PO BID [facility] Last Admin: 02/01/21 08:30 Dose: 0.5 mg Documented by: Heparin Sodium (Porcine) (Heparin Injection (Vial) 5,000 Unit/Ml Vial) 5,000 unit SC Q12 [facility] Last Admin: 02/01/21 08:25 Dose: 5,000 unit Documented by: Ceftriaxone Sodium (Rocephin) 1 gm in 50 mls @ 100 mls/hr IV Q24 [facility] Last Admin: 02/01/21 08:22 Dose: 100 mls/hr Documented by: Lamotrigine (Lamotrigine 100 Mg Tablet) 200 mg PO BID [facility] Last Admin: 02/01/21 08:29 Dose: 200 mg Documented by: Ondansetron HCl (Ondansetron 4 Mg/2 Ml Vial) 4 mg IV Q8H PRN PRN PRN Reason: NAUSEA/VOMITING Last Admin: 01/31/21 12:55 Dose: 4 mg Documented by: Senna/Docusate Sodium (Senna/Docusate Sodium 1 Tablet) 2 tablet PO BID PRN PRN PRN Reason: Constipation Sodium Chloride (0.9% Saline Lock 10 Ml Syringe) 10 - 40 ml IV UD PRN PRN Reason: SALINE FLUSH Last Admin: 01/31/21 13:28 Dose: 10 ml Documented by: Medical Necessity - Tobacco Use Smoking Status: Never smoker Tobacco Use: Cigarettes Assessment/Plan #1 generalized debility secondary to COVID-19 infection-continue PT and OT, awai t approval for placement in a longterm facility. 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 I talked with her PCP by phone today and there is a possibility that the patient was on multiple medications at that time and that may have caused problems. I reviewed the patient's medications with her PCP today by phone and it appears that we have the right list of her medications presently. I do not believe the patient had acute cystitis, I will discontinue her Rocephin Inpatient E&M: [id number] [facility] Hosp L2
[2021-02-01] MEDS: ChlorproMAZINE 25 MG Tablet 12.5 MG PO (21:02)
[2021-02-01] MEDS: Atorvastatin Calcium 40 MG Tablet PO (21:02)
[2021-02-01 22:00] VITALS: BP 154/81; PULSE 68; RESP 16; TEMP 36.8; O2SAT 96
[2021-02-02 04:00] VITALS: BP 149/70; PULSE 79; RESP 16; TEMP 36.6; O2SAT 96
[2021-02-02 08:00] VITALS: PULSE 94
[2021-02-02] MEDS: Heparin Injection (Vial) 5,000 UNIT/ML VIAL 5000 UNIT SC (08:28)
[2021-02-02] MEDS: Atenolol 25 MG Tablet PO (08:30)
[2021-02-02] MEDS: Aspirin 81 MG TAB.CHEW PO (08:30)
[2021-02-02] MEDS: lamoTRIgine 100 MG Tablet 200 MG PO (08:30)
[2021-02-02] MEDS: ARIPiprazole 2 MG Tablet PO ×2 (08:30)
[2021-02-02] MEDS: clonazePAM 0.5 MG Tablet PO (08:33)
[2021-02-02 08:48] VITALS: BP 158/79; PULSE 94; RESP 16; TEMP 36.3; O2SAT 96
--- NOTE | 2021-02-02 09:28 | CASEMGMT ---
Addendum entered by Amber Higuera 02/02/21 11:14: ALEXIA called Katharine at [facility], she states that they can take pt today, no prior precert needed. SW faxed all discharge instructions to [facility]. SW set up a 1pm ambulance w/[facility]. SW let pt's know via phone time of pickup, also let Katharine at [facility] know via voicemail time of pickup and that APS is following and to let Michael at [facility] know when pt is discharging. SW also called the facility directly and let them know pickup time. SW let bedside RN know pickup time as well. ALEXIA called Michael at [facility] as well, let her know that pt is going to [facility] today. ALEXANDRA Floyd Original Note: ALEXIA called Katharine at [facility], she states that [facility] may have waived the precert, she will let this SW know. Hospital exemption completed in [place], updates faxed to [facility]. Katharine is to call this SW back and let SW when they are able to take pt, once she gets clarification regarding precert. ALEXANDRA Floyd
--- NOTE | 2021-02-02 10:38 | PCM.TXEXTCAR ---
- Diet 01/30/21 09:42 Diet: Regular - General Is pt able to select menu?: Yes - Wound(s) R posterior forearm Wound Type: Abrasion - Therapies Physical Therapy: Eval and Treat Occupational Therapy: Eval and Treat - Problem/Diagnosis (1) Cognitive impairment Status: Chronic Comment: etiology unclear (2) Bipolar disorder Status: Chronic (3) Fibromyalgia Status: Chronic (4) Hyperlipidemia Status: Chronic (5) Hypertension Status: Chronic (6) COVID-19 Status: Acute Comment: Diagnosed 01/21/21 (7) Anxiety Status: Chronic - Allergies/Procedures Done in Hospital Allergies/Adverse Reactions: Allergies buprenorphine HCl [From Suboxone] Allergy (Verified 01/29/21 12:57) Anaphylaxis erythromycin base [Erythromycin Base] Allergy (Verified 01/29/21 12:57) unsure naloxone HCl [From Suboxone] Allergy (Verified 01/29/21 12:57) Anaphylaxis trazodone Adverse Reaction (Verified 01/29/21 12:57) NEEDS FOLLOW-UP MUSCLE WEAKNESS Procedures: None - Type of Care/Length of Stay Estimated LOS: Convalescent Care Less Than 30 days Type of Care Needed: Skilled Rehab Potential: Good Prognosis: Good - Additional Orders/Day of Discharge H&P will serve as current which was dated: 01/29/21 Day of Discharge: 02/02/21 - Dietary and Speech Recommendations Dietitian Recommendations/Changes: ONS if PO regresses at meals and requires supplementation. - Follow Up Care Primary Care Physician: Dorene Whittaker MD [Primary Care Provider] -
[2021-02-02 10:51] VITALS: BP 158/79; PULSE 94; RESP 16; TEMP 36.3; O2SAT 96
--- NOTE | 2021-02-02 11:42 | NURSING ---
report called to [facility] in [place] to [place] planned pick-up is 1300
--- NOTE | 2021-02-02 11:46 | NURSING ---
informed Jacque would be leaving [facility] for [facility] @ [phone] voiced understanding
--- NOTE | 2021-02-02 13:28 | NURSING ---
ambulance here for pick-up to transfer to [facility]
--- NOTE | 2021-02-04 10:17 | DS.PCM_ITS ---
Discharge Date and Diagnosis - Problem List Patient Problems: Active and Suspected Problems (Last Updated 01/30/21 @ 09:[address] Bennie Garibay MD) COVID-19 (Acute) Diagnosed 01/21/21 Date of Admission: 01/29/21 Date of Discharge: 02/02/21 - Primary Discharge Diagnosis Acute Problems: Active Problems (Last Updated 01/30/21 @ 09:[address] 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 Bennie Garibay MD) Cognitive impairment (Chronic) etiology unclear Bipolar disorder (Chronic) Obesity (BMI 30.0-34.9) (Chronic) Muscle spasm (Chronic) Acute ischemic stroke (Chronic) Fibromyalgia (Chronic) Anxiety (Chronic) Chronic back pain (Chronic) Hyperlipidemia (Chronic) Hypertension (Chronic) Hospital Course and Treatment Operations: None Procedures: None Summary of Care Provided: The patient is a 65 year old F seen in the emergency room at [facility] with a chief complaint of nausea, vomiting, and generalized weakness. Patient stated that she tested positive for COVID-19 on 01/21/2021. Work-up in the emergency room included labs which revealed a normal chemistry panel, BC was unremarkable, chest x-ray showed no acute cardiopulmonary process. Patient was given Zofran in the patient's Covid antigen test was negative. The ER attempted to ambulate the patient but she was physically weak and unsteady on her feet. It was felt that she would be admitted for further care including PT and OT and evaluation for temporary placement in a long-term facility. Patient's urinalysis indicated she might have a urinary tract infection, she was treated with antibiotics but the final urine culture showed only mixed gram-positive organisms which made it likely it was contaminated. Patient was not felt to have had a cystitis. Patient's showed signs of some cognitive impairment while she was hospitalized, it was unknown what was causing this and this examiner felt that it was probably chronic in nature. On 02/02/2021, patient was seen and examined: On examination she appeared older than her stated age, she does not appear to be in any distress. Vital signs as documented. Skin warm and dry and without overt rashes. Neck without JVD, thyroid appears normal, trachea is midline, neck is supple. Lungs clear, normal air movement was noted. Heart exam notable for regular rhythm, normal sounds and absence of murmurs, rubs or gallops. Abdomen unremarkable and without evidence of organomegaly, masses, or abdominal aortic enlargement, bowel sounds are present in all 4 quadrants, no abdominal tenderness was noted. Extremities nonedematous, no cyanosis was noted, no clubbing was noted. Neuro: Cranial nerves II through XII are grossly intact, no focal motor deficits were noted, s ensation to light touch and pinprick is intact, motor exam 5/5 throughout. Psych: Patient is alert, she exhibits some mild cognitive dysfunction. On 02/02/2021, patient was transferred to an extended care facility for short- term rehab services, she was discharged in stable condition. Patient Problems: Active and Suspected Problems (Last Updated 01/30/21 @ 09:[address] Bennie Garibay MD) COVID-19 (Acute) Diagnosed 01/21/21 - Physical Exam Vitals/I&O's: Vital Signs Temp Pulse Resp BP Pulse Ox 97.4 F L 94 16 158/79 H 96 02/02/21 10:51 02/02/21 10:51 02/02/21 10:51 02/02/21 10:51 02/02/21 10:51 Oxygen Delivery Method Room Air Weight: 77.5 kg Body Mass Index (BMI) 28.9 Finger Stick Blood Glucose 125 Intake and Output for Last 24 Hours 02/02/21 02/03/21 02/04/21 23:59 23:59 23:59 Intake Total 320 / 320 Balance 320 / 320 Microbiology Past 72 Hours 01/29/21 16:00 Blood Culture (Wb) - Anticubital Left Blood Culture - Final No growth in 5 days. Home Medications: Medications to take at Discharge Lamotrigine [Lamictal] 200 mg PO BID 12/13/13 Aripiprazole [Abilify] 2 mg PO DAILY 07/13/20 Atenolol 25 mg PO DAILY 07/13/20 Cholecalciferol (VIT D3) [Vitamin D3] 3,000 unit PO DAILY 07/13/20 Perphenazine 2 mg PO QHS 07/13/20 Aspirin [Aspirin, Baby] 81 mg PO DAILY@0800 07/16/20 Atorvastatin Calcium [Lipitor] 40 mg PO QHS 07/16/20 Acetaminophen [Tylenol Tablet] 650 mg PO Q6H PRN PRN tablet 02/02/21 Clonazepam [Klonopin] 0.5 mg PO BID 7 Days #14 tablet 02/02/21 Following Prescriptions Were Given to Patient: Clonazepam [Klonopin] 0.5 mg PO BID 7 Days #14 tablet Prescription Printed Primary Care Physician: Dorene Whittaker MD [Primary Care Provider] - Disposition: [facility] facility Minutes spent on discharge:: 32 Patient Condition:: Stable Medical Necessity - Tobacco Use Smoking Status: Never smoker Tobacco Use: Cigarettes Meaningful Use Info Meaningful Use Diagnoses (Choose all that apply): None applicable Inpatient E&M: 10679 [facility]
== END 2021-02-02 13:30 | DRG 179 ==
LOC: ED 13:57 → ICU 01-30 07:03
PROVIDERS: Admitting Provider Internal Medicine; Emergency Provider Student in an Organized Health Care Education/Training Program; PCP Family Medicine; Visit Provider Internal Medicine
DX: U07.1 COVID-19 (principal); G20 Parkinson's disease; M79.7 Fibromyalgia; G31.84 Mild cognitive impairment of uncertain or unknown etiology; F31.9 Bipolar disorder, unspecified; F41.9 Anxiety disorder, unspecified; E78.5 Hyperlipidemia, unspecified; I10 Essential (primary) hypertension; G89.29 Other chronic pain; E66.9 Obesity, unspecified; Z68.30 Body mass index [BMI] 30.0-30.9, adult; Z86.73 Personal history of transient ischemic attack (TIA), and cerebral infarction without residual deficits; Z79.82 Long term (current) use of aspirin; Z79.899 Other long term (current) drug therapy
CPT/HCPCS: 36415; 71045; 80053; 81001; 83605; 84145; 84484; 85025; 87040; 87086; 87088; 87426; 97110; 97162; 97166; 97530; 97802; 99251; 99285; J7030; J7040; A4216; G0463; J2405

== ENCOUNTER → 2021-03-25 12:24 | Outpatient (CLI) | payer MEDICARE, SELFPAY ==
[2021-01-29 17:59] VITALS: BMI 28.9
--- NOTE | 2021-03-25 12:27 | US_ITS ---
STUDY: THYROID ULTRASOUND REASON FOR EXAM: Female, 65 years old. Thyroid nodule. TECHNIQUE: Ultrasound evaluation of the thyroid was performed with real-time and static dorsey-scale imaging. COMPARISON: 05/12/2020. FINDINGS: RIGHT LOBE: The right lobe of the thyroid gland measures 5.9 x 2.8 x 2.8 cm. There is a homogeneous echotexture. There are 3 nodules within the right thyroid. In the upper pole there is a 2.4 x 1.5 x 1.2 cm heterogenous slightly isodense nodule which is wider than it is tall and contains no calcifications. In the posterior mid thyroid there is a 2.1 x 1.6 x 2.1 cm round hypoechoic nodule. Slightly more inferior there is a second similar hypoechoic echo at nodule measuring 1.4 x 1.2 x 1.1 cm. LEFT LOBE: The left lobe of the thyroid gland measures 5.6 x 2.7 x 2.0 cm. There is a homogeneous echotexture. In the mid thyroid there is a 0.9 cm hypoechoic nodule along the posterior aspect fibroid. ISTHMUS: The isthmus measures . The regional lymph nodes are normal. US/Thyroid IMPRESSION: 1. Stable nodules when compared to the prior study. The most suspicious of the nodules has a low-attenuation nodules on the right. These are categorized as TIRADS category TR 4. These nodules are moderately suspicious. Recommend follow-up thyroid ultrasounds at 1, 2 and 4 years. Electronically Signed: Morgan Pack DO at 22:56 EDT Tel [phone], Service support ,
== END ==
PROVIDERS: PCP Family Medicine; Referring Provider Otolaryngology; Visit Provider Otolaryngology
DX: E04.1 Nontoxic single thyroid nodule (principal)
CPT/HCPCS: 76536

== ENCOUNTER → 2021-08-19 13:21 | Outpatient (CLI) | payer MEDICARE, SELFPAY ==
--- NOTE | 2021-08-19 13:30 | ST.MBS ---
Modified Barium Swallow - Patient Information Study Date: 08/19/21 Study Time: 13:30 Direct Billable Minutes: 120 Total Minutes procedure & reportin Diagnosis: dysphagia Referring Physician: Bacilio Ayoub Reason for Referral: Objective assessment of swallow function under fluoroscopy. Patient reports sensation of getting choked and stated I really have to chew to get things down, denies feeling as if things go down the wrong pipe but rather that they get stuck. Medical History: CVA w/ residual L hemiparesis, Parkinson's Disease, Fibromyalgia, HTN, HLD, Bipolar Disorder, Anxiety. Denies hx of PNA w/in the past 5 years. Has COVID 01/31. Pt reports a past surgery of C7-8 Dentition: Natural Teeth Mental Status: WNL - able to comprehend/follow instruction sufficiently for participation in MBS Respiratory Status: Oxygenating on Room Air - Penetration-Aspiration Scale Penetration-Aspiration Scale: OBJECTIVE ASSESSMENT OF SWALLOW FUNCTION (QUANTITATIVE ? PER TRIAL): PENETRATION / ASPIRATION SCALE (LEVIN): 1 = does not enter airway 2 = enters airway/above vocal folds/ejected 3 = enters airway/above vocal folds/not ejected 4 = enters airway/contacts vocal folds/ejected 5 = enters airway/contacts vocal folds/not ejected 6 = enters airway/below vocal folds/ejected 7 = enters airway/below vocal folds/not ejected despite effort 8 = enters airway/below vocal folds/no effort - Penetration-Aspiration Scale Score Thin Liquid via teaspoon Result: 1= does not enter airway Thin Liquid via teaspoon Trial 2 Result: 1= does not enter airway Thin Liquid via small single sip from cup Result: 1= does not enter airway Thin Liquid via sequential sips from cup Result: 4= enters airway/contacts vocal folds/ejected Thin Liquid via single sip from straw Result: 2= enter airway/above vocal folds/ejected Thin Liquid via single sip from straw Trial 2 Result: 1= does not enter airway Pudding Result: 1= does not enter airway Pudding Trial 2 Result: 1= does not enter airway Cookie Result: 1= does not enter airway Thin Liquid via small single sip from cup Trial 2 Result: 1= does not enter airway - contrast undercoated the posterior laryngeal surface of the epiglottis w/out penetration into the laryngeal vestibule - Oral Phase Labial Seal: No Labial Escape Tongue Control During Bolus Hold: Cohesive bolus between tongue to palatal seal Bolus Preparation/Mastication: Slow prolonged chewing/mashing with complete recollection Bolus Transport/Lingual Motion: Slowed tongue motion Oral Residue: Residue collection on oral structures - Pharyngeal Phase Initiation of Pharyngeal Swallow: Bolus head at posterior laryngeal surgace of epiglottis Soft Palate Elevation: No bolus between soft palate and pharyngeal wall Laryngeal Elevation: Partial superior movement thyroid cart/partial apprx aryt-epig petiole Anterior Hyoid Excursion: Partial anterior movement Epiglottic Movement: Partial inversion Laryngeal Vestibule Closure at Height of Swallow: Complete; no air/contrast in laryngeal vestibule Pharyngeal Stripping Wave: Present - complete Pharyngoesophageal Segment Opening: Parital distension and partial duration; parital obstruction of flow Tongue Base Retraction: Narrow column of contrast between tongue base & post. pharyngeal wall Pharyngeal Residue: Collection of residue within or on pharyngeal structures - valleculae - Esophageal Phase Esophageal Clearance: Esophageal retention w/ retrograde flow below pharyngoesophageal seg. - Diagnosis/Impression Diagnosis: mild oropharyngeal dysphagia (R13.12) Impression: The oral phase is characterized by: mastication inefficiency (mild) slowed lingual motion for A-P bolus trasnportation mild oral residue retention post deglutition (oral tongue); able to clear w/ second swallow The pharyngeal phase is characterized by: delayed pharyngeal swallow onset timing resulting in suboptimal bolus location upon swallow onset contributing to laryngeal vestibule penetration before/during deglutition w/ the initial bolus swallows during sequential thin liquid trials adequate arytenoid to epiglottic petiole contact for laryngeal vestibule closure achieved w/ sufficient pressure to expel laryngeal vestibule penetration of thin liquids vallecular residue retention w/ thicker viscosities attributed to reduced laryngeal elevation/reduced anterior hyoid excursion resulting in insufficient epiglottic inversion w/ trapping of contrast in the valleculae a double swallow was effective to sufficiently clear valleculae stasis reduced PES distention w/ cervical osteophytes visibly narrowing bolus flow into the esophagus at the C4-5 level The esophageal phase is characterized by: decreased clearance; esophageal retention w/ retrograde bolus flow below the PES Diet Recommended: Regular Easy to Chew Texture (IDDSI: 7)/Thin Liquid (IDDSI: 0) Compensatory Strategies Recommended: small bites, small sips one at a time (avoid large volume/sequential swallows), double swallow to clear pharyngeal residue, seated upright at 90 degrees during PO intake, remain upright for 30 minutes post meal (GERD precaution) Additional Speech Therapy Services Recommended: No further skilled dysphagia intervention is warranted at this time. Education: Images were reviewed w/ the patient and findings were discussed. Educated on compensatory strategies detailed above to improve pharyngeal bolus clearance. Encouraged to complete sets of 10 effortful swallows 3-4x daily to maintain pharyngeal strength. If swallow function worsens over time, would consider a repeat MBS and outpatient dysphagia intervention targeting hyolaryngeal excursion, epiglottic inversion and swallow onset timing. Pt verbalized understanding and agreement w/ recommendations and education provided. - Status Active ST Patient: Active - Contact Information [facility] Speech Therapy:: Lizabeth Agudelo M.A., CCC-YARDAGE CONTROL OPERATOR [facility] [address] [place] [address] x [phone] [email or web address]
== END ==
PROVIDERS: PCP Family Medicine; Referring Provider Otolaryngology; Visit Provider Otolaryngology
DX: R13.10 Dysphagia, unspecified (principal)
CPT/HCPCS: 74230; 92611

== ENCOUNTER → 2021-11-04 14:06 | Outpatient (CLI) | payer MEDICARE, SELFPAY ==
--- NOTE | 2021-11-04 14:08 | ART_ITS ---
Reason For Study: PVD Procedure A bilateral lower extremity continuous wave Doppler with analog waveform analysis,segmental pressures,and ankle brachial indexes with exercise. Left Segmental Pressures Left brachial= 150mmHg. Left posterior tibial artery = 169mmHg. Left dorsalis pedis artery = 167mmHg. Left digit = 132 mmHg. The left dorsalis pedis waveforms are triphasic. The left posterior tibial artery waveforms are triphasic. Right Segmental Pressures Right brachial= 157mmHg. Right posterior tibial artery = 169mmHg. Right dorsalis pedis artery = 183mmHg. Right digit = 158 mmHg. The right dorsalis pedis waveforms are triphasic. The right posterior tibial artery waveforms are triphasic. Indices The right ankle brachial index by the dorsalis pedis is 1.17. The right ankle brachial index by the posterior tibial artery is 1.08. The right digital-brachial index is 1.01. The right post exercise ankle brachial index is 1.29. The left ankle brachial index by the dorsalis pedis is 1.06. The left ankle brachial index by the posterior tibial artery is 1.08. The left digital-brachial index is .84. The left post exercise ankle brachial index is 1.19. VL/Lower Ext Art Exam w/ Exercise Interpretation Summary Normal bilateral lower extremity resting ankle brachial indices and triphasic p osterior tibial and dorsalis pedis doppler waveforms. Normal bilateral lower extremity digital brachial indices. Normal bilateral lower extremity indice response to exercise. Ordering Physician: MITUL SAVAGE Performed By: Will Waite RVT
== END ==
PROVIDERS: PCP Family Medicine
DX: I73.89 Other specified peripheral vascular diseases (principal)
CPT/HCPCS: 93924

== ENCOUNTER 2022-04-20 17:30 | Outpatient (RCR) | payer MEDICARE, SELFPAY ==
--- NOTE | 2022-03-15 11:49 | HP.PTEVAL_ITS ---
Patient's Visit Information ELLE DUGAN is a 66 year old F referred to Physical Therapy by SOPHY Holder with a diagnosis of Right Shoulder Impingment. Date of Evaluation: 03/15/22 Physical Therapist: Mirna Rashid DPT - Visit Plan Frequency: 2x /Week Duration: 4 Weeks Plan: Focus on ROM and strength/stabilization- focus on functional mobility. - Subjective Right shoulder pain (bursitis) for about a month- insidious onset. Painful and the more she used it the more she hurt. Right hand dominate. Pain is located straight through the shoulder. She had an injection- 03/02/2022. Her shoulder has been good since then. If she over does it the shoulder is more tired. Worst: 4/10 Agg: overdoing it, anything overhead. Best: 0/10 Eases: heating pad and Tylenol and rest. No radiating pain. No N/T. No finger dexterity or human resources vice president strength issues. She has no increase in KHOURY, or dizziness. She has some blurred vision- she just got new glasses-unsure if meds from Parkinsons- she has mentioned it to her MD- has been cleared from the eye doctor. No neck pain. Uses a cane in her right hand when she is out in the community. She was having a lot of falls but has not fallen in October 2021. Fully I with ADL's with the exception of driving due to her medications. She does not do any exercise. Sleep: not anymore PMHx/Meds: no changes since ortho. - Objective Posture: FH, RS- can correct with verbal cues but is unable to maintain. Gait: no deviation noted- good arm swing and trunk rotation- ambulates with straight cane in right hand. Palpation: tender along medial border of the scapula, AC joint, bicipital groove. ROM: Flexion: 160 degrees, Abd: WFL, IR: equal to other side, ER: 60 degrees- pain at end ranges of flexion, Elbow/Wrist/Hand: WFL Cervical: WFL Strength: scap: poor, Shoulder: 4-/5 throughout, Elbow: 4+/5, Wrist: 4+/5, Seasonal Clerk: equal side to side. Sensation: WNL - Special Tests R Shoulder Lift Off Test - Subscapular Tear: Positive R Shoulder Empty Can - SS: Positive R Shoulder Neer - Impingement: Positive R Shoulder Tai Aniket - Impingement: Positive - Balance/Special Test Scores Quick DASH Score: 61.3625 - Goals Goal 1:: Patient will be I with HEP and progression Goal Time Frame: 4-6 Weeks Goal 2:: Patient will maintain proper posture t/o tx session to demo increased scap s/s Goal Time Frame: 4-6 Weeks Goal 3:: Patient will demo full AROM of the right UE without pain Goal Time Frame: 4-6 Weeks Goal 4:: Patient will report 80% improvement Goal Time Frame: 4-6 Weeks - Rehabilitation Potential Physical Therapy Diagnosis: Patient presents with hypomobility- she has decreased pain free ROM, UE and scapular s/s and muscular endurance leading to poor posture and increased pain with ADL's. Rehabilitation Potential: Fair - Anticipated Interventions Patient/Client Instruction: Educate patient on: Benefits of Fitness Program Therapeutic Exercise to Include: Strength training, Power training, Body mechanics, Postural training, Flexibilty training, Passive ROM, Active ROM, Dynamic Lumbar Stabilization, Scapular Strength/Stabilization For the Purpose of:: To improve muscle performance and motor function TENS: Yes Cryotherapy (ice pack, ice massage): Yes Thermo therapy (hot pack): Yes Ultrasound (thermal/non thermal): Yes Thank you for the opportunity to evaluate your patient. For Medicare and Medicare HMO plans, please review the plan of care and approve it. It will need to be FAXED BACK to us at [phone] for Medicare purposes. For Medicare only, by signing this I certify the plan of care. Please let me know if there are questions or concerns regarding this plan of care. Physician Signature: Date:
--- NOTE | 2022-09-14 09:53 | HP.PT.NRP ---
ELLE DUGAN was seen in my office for initial evaluation on 03/15/22. The following Plan of Care was established for this patient: Initial Frequency: 2x /Week Initial Duration: 4 Weeks Patient/Client Instruction: Educate patient on: Benefits of Fitness Program Therapeutic Exercise to Include: Strength training, Power training, Body mechanics, Postural training, Flexibilty training, Passive ROM, Active ROM, Dynamic Lumbar Stabilization, Scapular Strength/Stabilization For the Purpose of:: To improve muscle performance and motor function TENS: Yes Cryotherapy (ice pack, ice massage): Yes Thermo therapy (hot pack): Yes Ultrasound (thermal/non thermal): Yes This patient was last seen in our office . Pertinent comments regarding their Physical therapy will appear below: Patient has not attended PT in over 30 days appropriate for d/c and return to MD for further evaluation PRN At this point I will be discontinuing this patient from physical therapy. I would be happy to see this patient again in the future if found appropriate by the physician. Thank you! Mirna Rashid DPT Balance/Gait/Functional tests - Balance/Special Test Scores Quick DASH Score: 6.8175
== END 2022-04-20 19:00 | disposition home or self-care (01) ==
LOC: PT 17:30
PROVIDERS: PCP Family Medicine; Referring Provider Physician Assistant; Visit Provider Physician Assistant
DX: M75.41 Impingement syndrome of right shoulder (principal)
CPT/HCPCS: 97110; 97161

== ENCOUNTER → 2022-05-09 | Outpatient (CLI) | payer MEDICARE, SELFPAY | END | disposition home or self-care (01) | LOC: SL 09:52 | PROVIDERS: PCP Family Medicine; Visit Provider Psychiatry & Neurology Sleep Medicine | DX: G47.33 Obstructive sleep apnea (adult) (pediatric) (principal) ==

== ENCOUNTER → 2022-05-24 | Outpatient (CLI) | payer MEDICARE, SELFPAY | END | disposition home or self-care (01) | LOC: SL 10:36 | PROVIDERS: PCP Family Medicine; Visit Provider Psychiatry & Neurology Sleep Medicine | DX: Z00.00 Encounter for general adult medical examination without abnormal findings (principal) ==

== ENCOUNTER → 2022-08-31 | Outpatient (CLI) | payer MEDICARE, SELFPAY ==
[2022-08-31 15:18] LABS: Absolute Lymphocyte Count 2.07 X10^3/uL (0.83-4.51); Absolute Neutrophil Count 5.8 X10^3/uL (2.0-7.7); Basophil# 0.04 X10^3/uL; Basophil% 0.5 % (0-1); Eosinophil# 0.12 X10^3/uL; Eosinophils% 1.4 % (0-5); Hematocrit 43.8 % (37-47); Lymphocyte # 2.07 X10^3/ul (0.83-4.51); Lymphocyte % 23.7 % (19-41); Mean Corpuscular Hgb 29.2 pg (27.0-32.0); Mean Corpuscular Volume 91.4 fL (81-99); Mean Platelet Vol. 9.4 fl (6.2-12.0); Monocyte# 0.65 X10^3/uL; Monocyte% 7.4 % (0-10); NRBC Flagged by Analyzer 0 % (0-5); Neutrophil # 5.84 X10^3/uL (2.7-7.7); Neutrophil % 66.7 % (47-70); Platelet Count 251 K/mm3 (150-450); RBC Distribution Width CV 12.8 % (11.6-14.6); RBC Distribution Width SD 42.5 fl (35.1-43.9); Red Blood Count 4.79 M/mm3 (4.2-5.4); White Blood Count 8.8 K/mm3 (4.4-11.0)
[2022-08-31 15:35] LABS: Vitamin B12 528 pg/mL (211-911)
[2022-08-31 15:56] LABS: ALB/GLOB Ratio 0.8 RATIO (0.9-2.4); AST(SGOT) 33 U/L (15-37); Alanine Aminotransfer ALT/SGPT 20 U/L (13-56); Albumin, Serum 3.5 g/dL (3.2-5.0); Alkaline Phosphatase 133 U/L (45-117); Anion Gap 6 (5-15); BUN 13 mg/dL (7-18); BUN/Creat Ratio 11.7 RATIO (10-20); Calcium,Total 9.9 mg/dL (8.5-10.1); Chloride 105 mmol/L (98-107); Creatinine, Serum 1.11 mg/dL (0.55-1.02); EST Glomerular Filtration Rate 52 mL/min (>60); Est Glom Filt Rate - Afr Amer 63 mL/min (>60); Globulin 4.5 g/dL (2.2-4.2); Glucose 135 mg/dL (74-106); Potassium 3.6 mmol/L (3.5-5.1); Sodium Level 140 mmol/L (136-145); Thyroid Stim Hormone (TSH) 1.61 uIU/mL (0.358-3.74)
[2022-09-04 09:16] LABS: Lead, Blood Adult 16+yrs < 1.0 ug/dL (0.0-3.4); VITAMIN B6 14.1 ug/L (3.4-65.2)
== END | disposition home or self-care (01) ==
LOC: LAB.FUTURE 10:33 → BFHLAB 11:48
PROVIDERS: PCP Family Medicine; Visit Provider Family Medicine
DX: G62.2 Polyneuropathy due to other toxic agents (principal); E04.2 Nontoxic multinodular goiter; I10 Essential (primary) hypertension
CPT/HCPCS: 36415; 80053; 82607; 83655; 84207; 84443; 85025

== ENCOUNTER → 2022-09-09 | Outpatient (CLI) | payer MEDICARE, SELFPAY ==
--- NOTE | 2022-09-09 12:46 | US_ITS ---
STUDY: THYROID ULTRASOUND REASON FOR EXAM: Female, 66 years old. NEOPLASM OF THYROID GLAND TECHNIQUE: Ultrasound evaluation of the thyroid was performed with real-time and static dorsey-scale imaging. COMPARISON: 5.13.21 FINDINGS: RIGHT LOBE: The right lobe of the thyroid gland measures 5.9 x 3 cm. There is a homogeneous echotexture. 3 total nodules. Nodule 1 is solid and cystic and measures 26 x 21 mm. It is heterogenous slightly isodense nodule which is wider than it is tall and contains no calcifications. Nodule #2 is solid and measures 20 x 20 mm. It is heterogenous slightly isodense nodule which is wider than it is tall and contains no calcifications. Inferior nodule measures 15 x 13 mm. LEFT LOBE: The left lobe of the thyroid gland measures 5.9 x 2.8 cm. There is a homogeneous echotexture. Nodule #1 is solid and cystic and measures 8 x 6 mm. Nodule 2. A solid and cystic and measures 9 x 7 mm. Previous study counted these lesions as one nodule. ISTHMUS: The isthmus measures 5 mm. US/Thyroid IMPRESSION: There are RIGHT nodules. Stable. This nodule is mixed cystic and solid, hypoechoic, [id number], smoothly marginated and contains no echogenic foci. TI-RADS points: 3. TI-RADS category: TR3. This nodule is mildly suspicious. Recommend FNA evaluation. There are left nodules. These are stable. This nodule is mixed cystic and solid, hypoechoic, [id number], smoothly marginated and contains no echogenic foci. TI-RADS points: 3. TI-RADS category: TR3. This nodule is mildly suspicious but no FNA or follow-up is necessary given the small size of this nodule. Electronically Signed: Wicho Cruz MD at 17:45 EDT ,
== END | disposition home or self-care (01) ==
LOC: US 12:45
PROVIDERS: PCP Family Medicine; Referring Provider Otolaryngology; Visit Provider Otolaryngology
DX: E04.1 Nontoxic single thyroid nodule (principal)
CPT/HCPCS: 76536

== ENCOUNTER 2022-09-26 11:34 | Outpatient (CLI) | payer MEDICARE, SELFPAY ==
--- NOTE | 2022-09-26 11:35 | US_ITS ---
PROCEDURE: ULTRASOUND GUIDED RIGHT THYROID FNA/BIOPSY. DATE: 09/26/2022. INDICATION: Female, 67 years old. Right thyroid nodules. PHYSICIAN: Eros Chase M.D. MEDICATIONS: 2% lidocaine administered subcutaneously for local anesthesia. ACCESS SITE: Right - anterior approach. NEEDLE: 25-gauge FNA needle. SPECIMEN: Multiple FNA specimen collected and given to pathology. EBL: None. COMPLICATIONS: None immediate. PROCEDURE: The risks, benefits, and alternatives to the procedure were explained to the patient. The specific risk of hemorrhage requiring further treatment or intervention was detailed and accepted. Written informed consent was obtained. The patient was brought into the ultrasound room and placed in the supine position on the stretcher. An appropriate entry site was identified. The overlying skin was prepped and draped in the usual sterile fashion. 2% lidocaine was administered subcutaneously for local anesthesia. Under ultrasound guidance, a 25-gauge FNA needle was advanced into the lesion. Aspiration was performed and the needle was withdrawn. A total of 4 passes were performed with specimen collected and given to the pathologist who was present during the procedure. Hemostasis was achieved with manual compression. Repeat ultrasound images of the biopsy area was performed which demonstrated no gross bleeding or hematoma. An antibiotic ointment dressing was placed and the patient was given an icepack. The patient tolerated the procedure well without immediate complications. The patient was discharged in stable condition. US/FNA 1st Biopsy w/ US IMPRESSION: Successful ultrasound-guided right thyroid nodule FNA/biopsy, as described above. Electronically Signed: Eros Chase MD at 13:25 EST ,
--- NOTE | 2022-09-26 12:00 | ASPIG_PTH ---
PATIENT: ELLE DUGAN LOC: U#:[id number] AGE/SX: 67/F ROOM: RE09/26/[address]: Dr. Zechariah Agrawal MD : 1955 BED: DIS: 09/26/2022 SPEC #: [id number] RECD: 09/26/22 12:30 STATUS: RICKY REHerminio #: [id number] LG: 09/26/22 12:[address]: Zechariah Agrawal DEPT: CYTOLOGY RECD BY: Nury Moura ENTERED: 09/26/22 13:13 SP TYPE: ASP OUT OTHR DR: Dr. Dorene Whittaker MD Tissues: Thyroid gland, NOS Procedures: FNA Specimen Adequacy Special Stain Group II Surgery Specimen Level IV Cytospin Fluid Cytology Other HEADER OPERATION: US guided thyroid FNA ? single right nodule PRE-OP DIAGNOSIS: Neoplasm of uncertain behavior TISSUE SUBMITTED: Right thyroid, US guided FNA DIAGNOSIS CYTOLOGY Right thyroid nodule, US guided FNA (cytospin, cell block and smears): Consistent with benign follicular/colloid nodule with cystic changes (Pearce category II). Adequate for evaluation. See comment. /NEHEMIAH 09/27/22 COMMENT The specimen is evaluated at the time of US guided core biopsy by Dr. Heredia. First set (2 passes) = A few follicular cells noted. Second set (1 pass) = A few follicular cells and numerous macrophages are noted Correlation with clinical, radiologic findings and appropriate follow up are necessary. CYTOLOGY STUDY Slides are reviewed. CYTOLOGY GROSS Received is 15 cc of light pink fluid labeled with the patient's name, and designated right thyroid FNA. Three passes were made. From first two passes 6 imprints and 5 paps are made and portion of the specimen is submitted for Affirma study, if needed, rest of specimen is added to cytolyt. From the third pass 3 imprints and 3 paps are made rest of the fluid added to CytoLyt for cytology study including cell block preparation. Submitted for cytology study. Enedina 09/26/22 TC:5 CPT:79753, 97187, 75535, [id number], [id number]
[2022-09-26] MEDS: Lidocaine 2% (20 ml mdv) 20 ML Vial INFILT (12:15)
== END 2022-09-26 23:59 | disposition home or self-care (01) ==
PROVIDERS: PCP Family Medicine; Referring Provider Otolaryngology; Visit Provider Otolaryngology
DX: D44.0 Neoplasm of uncertain behavior of thyroid gland (principal)
CPT/HCPCS: 10005; 10006; 88108; 88161; 88172; 88305; 88313

== ENCOUNTER 2023-01-24 12:57 | Emergency (ER) | payer MEDICARE, SELFPAY ==
[2023-01-24 12:57] VITALS: BP 162/94; PULSE 69; RESP 16; TEMP 36.6; O2SAT 98
--- NOTE | 2023-01-24 13:08 | ED.RN ---
CASE DISCUSSED WITH DR PADILLA. NO STROKE ALERT TO BE CALLED AT THIS TIME
[2023-01-24 13:42] VITALS: BP 172/80; PULSE 88; RESP 18; O2SAT 97
[2023-01-24 14:10] LABS: Absolute Lymphocyte Count 2.33 X10^3/uL (0.83-4.51); Absolute Neutrophil Count 5.5 X10^3/uL (2.0-7.7); Basophil# 0.07 X10^3/uL; Basophil% 0.8 % (0-1); Eosinophil# 0.41 X10^3/uL; Eosinophils% 4.5 % (0-5); Hematocrit 45.6 % (37-47); Hemoglobin 14.9 g/dL (12.0-15.0); Lymphocyte # 2.33 X10^3/ul (0.83-4.51); Lymphocyte % 25.8 % (19-41); Mean Corp Hgb Conc 32.7 g/dL (32-36); Mean Corpuscular Hgb 29.5 pg (27.0-32.0); Mean Corpuscular Volume 90.3 fL (81-99); Mean Platelet Vol. 9.5 fl (6.2-12.0); Monocyte% 7.7 % (0-10); NRBC Flagged by Analyzer 0 % (0-5); Neutrophil % 60.9 % (47-70); Platelet Count 275 K/mm3 (150-450); RBC Distribution Width CV 12.9 % (11.6-14.6); RBC Distribution Width SD 42.4 fl (35.1-43.9); Red Blood Count 5.05 M/mm3 (4.2-5.4)
[2023-01-24 14:22] LABS: Anion Gap 6 (5-15); BUN 12 mg/dL (7-18); BUN/Creat Ratio 11.2 RATIO (10-20); Chloride 106 mmol/L (98-107); Creatinine, Serum 1.07 mg/dL (0.55-1.02); EST Glomerular Filtration Rate 54 mL/min (>60); Est Glom Filt Rate - Afr Amer 66 mL/min (>60); Glucose 125 mg/dL (74-106); Potassium 3.8 mmol/L (3.5-5.1); Sodium Level 140 mmol/L (136-145)
--- NOTE | 2023-01-24 14:54 | EX.ED.DYSGE1 ---
HPI History of Present Illness Chief Complaint: Dizziness Detail of Chief Complaint: Tingling from her chin to her toes and not able to move her arms and legs Informant: patient Onset/Context/Timing Onset: Today (Uncertain please read HPI narrative) Context: Sudden Onset Timing: Continuous Quality: Body weakness and body paresthesia Location: From patient's chin to her toes Current Severity: Severe Maximum Severity: Severe Worsened by: Unknown Relieved by: Nothing Associated Symptoms Associated Symptoms: None Narrative Narrative: Patient is a 67-year-old woman with history of bipolar affective disorder, fibromyalgia, anxiety disorder as well as hyperlipidemia, hypertension and osteoarthritis. She states she presents to the emergency room because she cannot use her arms or legs. When asked how she got into her car since she did not arrive by ambulance she states her had to help her. Asked how she got from the car into the ER she states her helped her. Asked how she got into the examination bed nurses commented that she was able to use her arms or legs and crawled into bed. Patient presently denies headache. She denies double vision, blurred vision loss of vision. Eyes ringing or ears or decreased hearing. Denies neck pain. She denies any other symptoms. Prior similar symptoms: No Recent Illness/Hospitalization: No PFSH PFSH Medical History Acute ischemic stroke Anxiety Bipolar disorder Chronic back pain Fibromyalgia Hyperlipidemia Hypertension Left hemiparesis Muscle spasm Obesity (BMI 30.0-34.9) Parkinsonism Ruptured disk Home Medications lamotrigine 200 mg tablet 200 mg PO BID depression 12/13/13 [History Last Taken 07/13/20 12:00] aripiprazole 2 mg tablet 2 mg PO DAILY depression 07/13/20 [History Last Taken 07/13/20 12:00] atenolol 25 mg tablet 25 mg PO DAILY hypertension/heart 07/13/20 [History Last Taken 07/13/20] cholecalciferol (vitamin D3) 25 mcg (1,000 unit) tablet 3,000 unit PO DAILY supplement 07/13/20 [History Last Taken 07/13/20] aspirin 81 mg chewable tablet 81 mg PO DAILY@0800 heart health 07/16/20 [History Last Taken Unknown] acetaminophen 325 mg tablet 650 mg PO Q6H PRN PRN Pain Score 1-10/Temp > 100.7 F 02/02/21 [Rx Last Taken Unknown] clonazepam 0.5 mg tablet 0.5 mg PO BID Anxiety 7 days #14 tabs 02/02/21 [Rx Last Taken Unknown] ropinirole 2 mg tablet,extended release 24 hr 2 mg PO 03/02/22 [History Last Taken Unknown] simvastatin 40 mg tablet 40 mg PO 03/02/22 [History Last Taken Unknown] carbidopa 25 mg-levodopa 100 mg tablet 1 tab PO 06/29/22 [History Last Taken Unknown] hydroxyzine HCl 10 mg tablet 10 mg PO QHS 06/29/22 [History Last Taken Unknown] ropinirole 8 mg tablet,extended release 24 hr 8 mg PO 06/29/22 [History Last Taken Unknown] Allergy/AdvReac Type Severity Reaction Status Date / Time buprenorphine HCl Allergy Anaphylaxis Verified 01/24/23 13:00 [From Suboxone] erythromycin base Allergy unsure Verified 01/24/23 13:00 [Erythromycin Base] naloxone HCl [From Suboxone] Allergy Anaphylaxis Verified 01/24/23 13:00 trazodone AdvReac NEEDS Verified 01/24/23 13:00 FOLLOW-UP Surgical History Hx of mastectomy Social History (Updated 01/24/23 @ 14:[address] Oliver Quintanilla MD) household members: spouse Smoking Status: Never smoker substance use type: does not use ROS ROS ED Constitutional Constitutional ED: Denies chills, fever(s), subjective, sweats or weight loss Eyes Eyes: Denies blurry vision, change in vision or diplopia ENT ENT ED: Denies ear pain, rhinorrhea or sore throat Cardiovascular Cardiovascular: Denies chest pain, orthopnea, palpitations, paroxysmal nocturnal dyspnea or racing heartbeat Respiratory/Chest Respiratory/Chest: Denies cough, dyspnea on exertion, orthopnea or paroxysmal nocturnal dyspnea Gastrointestinal Gastrointestinal: Denies abdominal pain, diarrhea, melena, nausea or vomiting Genitourinary Genitourinary ED: Denies dysuria, hematuria or urinary frequency Musculoskeletal Musculoskeletal: Denies arthralgias, back pain, myalgias or neck pain Integumentary Denies Abrasions or rash Neurologic Neurologic: Reports paresthesias, weakness and other Details: Unable to move arms or legs ; Denies headache(s) Psychiatric Psychiatric: Reports anxiety Endocrine Endocrinology: Denies cold intolerance or heat intolerance Hematologic/Lymphatic Hematologic/Lymphatic: Reports systems reviewed and no addt'l complaints, except as documented EXAM Physical Exam Const Vital Signs: 01/24/23 12:57 01/24/23 13:42 01/24/23 15:04 Temperature 98 F Temperature Source Temporal Pulse Rate 69 88 65 Respiratory Rate 16 18 18 Blood Pressure 162/94 H 172/80 H 150/86 H Blood Pressure Mean 116 110 107 Pulse Ox 98 97 98 Oxygen Delivery Method Room Air Room Air Room Air Positive well nourished, well developed and obese General Appearance ED: well developed and NAD; Negative for cyanotic, diaphoretic or pallor Nutritional Appearance: obese HEENT Reports moist mucous membranes HEENT Narrative: Head is atraumatic normocephalic. Ears are normal. Nares are patent. Uvula is midline. There is no deviation of the tongue with protrusion. Eyes PERRL and EOMs intact bilaterally Eyes Narrative: There is no nystagmus. General Eye ED: Negative for pale conjunctiva or scleral icterus Neck no lymphadenopathy, supple and no JVD Chest Wall inspection of chest normal Resp normal respiratory effort and clear to auscultation bilaterally Cardio regular rate, regular rhythm, S1 normal heart sound, S2 normal heart sound and no murmurs GI normal to inspection, nondistended, normoactive bowel sounds, non-tender, non-distended and hepatosplenomegaly Auscultation: normoactive bowel sounds Back/Spine no CVA tenderness Cervical Spine: Negative for cervical spine tenderness Thoracic Spine / Upper Back: Negative for thoracic spinal tenderness Lumbar Spine / Lower Back: Negative for lumbar spinal tenderness Extremity normal to inspection Neuro oriented x3, CN's II-XII intact bilaterally and no sensory deficits noted Neuro Narrative: When patient's arm was raised beside her it dropped rapidly to the bed. When her hand was placed above her head she was able to hold this. Negative Babinski sign right or left. Negative clonus. DTRs are 2+ at the bicep, brachialis, triceps, patella and ankle. Sensorium / Orientation: alert Psych Mood & Affect: depressed Skin no rashes or lesions noted, no wounds and skin turgor normal General Skin Exam: Negative for jaundice or pallor MDM MDM MDM Narrative Medical decision making narrative: Patient has an inconsistent exam and exam that does not make. Will obtain basic metabolic panel to evaluate for hypokalemia. Suspect this is a conversion reaction. Since patient has a nonfocal neurologic exam a CT of the head was not obtained. Blood pressure is slightly elevated. Would not expect any neurodeficits with a blood pressure 162/94. Lab Data Attestation: I reviewed the patient's lab results. Lab results narrative: BBC is normal. Basic metabolic panel reveals a creatinine of 1.07 with a GFR of 54. Glucose is elevated 125 with normal CO2 and anion gap. Labs: Laboratory Results - last 24 hr 01/24/23 01/24/23 14:05 14:05 WBC 9.0 RBC 5.05 Hgb 14.9 Hct 45.6 MCV 90.3 MCH 29.5 MCHC 32.7 RDW Std Deviation 42.4 RDW Coeff of Mckay 12.9 Plt Count 275 MPV 9.5 Immature Gran % (Auto) 0.300 Neut % (Auto) 60.9 Lymph % (Auto) 25.8 Mitchell % (Auto) 7.7 Eos % (Auto) 4.5 Baso % (Auto) 0.8 Absolute Neuts (auto) 5.5 Absolute Lymphs (auto) 2.33 Nucleated RBC % 0 Sodium 140 Potassium 3.8 Chloride 106 Carbon Dioxide 28.0 Anion Gap 6 BUN 12 Creatinine 1.07 H Est GFR (MDRD) Af Amer 66 Est GFR (MDRD) Non-Af 54 L BUN/Creatinine Ratio 11.2 Glucose 125 H Calcium 10.0 Treatment and Re-Evaluation :: Work did evaluate the patient. She told me that the patient does not believe my diagnosis. [facility] to talk to the nurse because they have seen her move her extremities even though she states she cannot. It is my professional opinion the patient diagnosis is conversion reaction. There is no indication for CAT scan. The nurse informing that patient has repeatedly stated that she is getting herself worked up again. At approximately 1724 the [facility] outreach and education social worker informing that she explained options to the patient. She states she will go home. Discharge Plan Triage Chief Complaint: Dizziness ED Provider: Oliver Quintanilla Dx/Rx/DC Orders Clinical Impression: Conversion reaction, Anxiety, Paresthesia, History of fibromyalgia, History of renal hypertension Instructions: ED Conversion Reaction Prescriptions: No Action ropinirole 2 mg tablet extended release 24 hr 2 mg PO Label Comments: Take 3 tablets by mouth once daily. simvastatin 40 mg tablet 40 mg PO Label Comments: TAKE 1 TABLET BY MOUTH DAILY carbidopa-levodopa 25-100 mg tablet 1 tab PO ropinirole 8 mg tablet extended release 24 hr 8 mg PO Label Comments: Take 1 tablet by mouth once daily. hydroxyzine HCl 10 mg tablet 10 mg PO QHS lamotrigine 200 MG tablet 200 mg PO BID Label Comments: PANIC/ANXIETY,TAKES 200 MG AM 150 MG PM atenolol 25 MG tablet 25 mg PO DAILY aripiprazole 2 MG tablet 2 mg PO DAILY cholecalciferol (vitamin D3) 1,000 UNIT tablet 3,000 unit PO DAILY aspirin 81 MG tablet,chewable 81 mg PO DAILY@0800 acetaminophen 325 MG tablet 650 mg PO Q6H PRN PRN (Reason: Pain Score 1-10/Temp > 100.7 F) 0RF clonazepam 0.5 MG tablet 0.5 mg PO BID 7 Days Qty: 14 0RF Primary Care Provider: Dorene Whittaker Referrals: Dorene Whittaker MD [Primary Care Provider] - 3-5 Days Disposition Disposition: Home, Self Care
[2023-01-24 15:04] VITALS: BP 150/86; PULSE 65; RESP 18; O2SAT 98; BMI 33.0
--- NOTE | 2023-01-24 15:31 | ED.RN ---
PATIENT TEARY-EYED/CRYING. OFFERED EMOTIONAL SUPPORT. NO OTHER NEEDS EXPRESSED AT THIS TIME.
--- NOTE | 2023-01-24 16:40 | ED.RN ---
SOCIAL WORK AT BEDSIDE AT THIS TIME.
--- NOTE | 2023-01-24 17:15 | CM.ED ---
Social Work Note Referral Source: MD Quintanilla Referral Reason: conversion disorder concern SW met with MD Quintanilla who briefly reviewed patient's symptoms and report medical clearance with concerns of conversion disorder. MD Quintanilla recommending patient follows up with psychiatrist or discuss [facility] placement. SW to follow up. SW met with patient and patient's and introduced herself and role as [facility] Prism Inspector. Patient was agreeable to speak with high school social studies teacher with patient's present. SW inquired about recent events and current concerns. Patient reports about a week ago noticing an increase in feeling dizzy daily and some blurred vision. Patient reports this morning when she attempted to get out of bed, she fell back into her bed and didn't feel like she could feel her legs. Patient then reports she must have gotten some feeling because she was able to walk over to where her glasses were to put them on. Patient reports having assistance from her the remainder of the day to get around the house. Patient reports calling her doctor and being encouraged to come into [facility] ED. SW inquired about recent stressors or changes. Patient reports she was anxious due to a decrease in conversation with her grandson as he started a new job that causes him to travel more. Patient explained her grandson briefly decreased talking to her but they are back to every other day communication. Patient's then reviewed patient's medication list which included: Lamictal, Klonopin, Atenolo, Simvastatin, Requip, Sinement, Remeron and Aterax as well as baby aspirin and vitamins. Patient reports decreasing her dosage of sinement per her MD's recommendation but otherwise no recent change in medications. SW then inquired about patient's current service connection and known diagnosis. Patient reports she has been diagnosed with depression and anxiety, has a counselor, Mercedes Browning, and a psychiatrist, Teresa Hebert. Patient explained she has monthly appointments with her counselor and appointments every three months with her psychiatrist with her next counseling appointment in February. SW then provided patient with emotional support and educated patient on conversion disorder. Patient was receptive towards information. SW reviewed MD Morin recommendations; patient declined [facility] but was interested in a list of other psychiatrist in network with her insurance. ALEXIA briefly reviewed the medication list with MD Quintanilla, MD reports no concerns regarding medications. SW informed MD she was providing patient with a list of psychiatrist and information on [facility] as patient declined interest in [facility]. ALEXIA provided patient with a list of local psychiatrist in network with her insurance. ALEXIA also provided patient with information regarding [facility] and encouraged her to contact them if she is interested in engaging in an assessment to discuss additional services that could be provided based on what she qualifies for. ALEXIA then encouraged the patient to follow up with her PCP and neurology and movement doctor with additional concerns. SW also encouraged patient if her symptoms got worse to come back into the ED for further evaluation. Patient was receptive towards the information provided and reports a plan to follow up with one of the psychiatrist on the list, contact her counselor and follow up with her PCP. No other needs voiced at this time. informed ALEXIA when patient was being discharged, her took her to the restroom via wheelchair and once at the bathroom door, the patient stood up and walked into the bathroom without assistance and returned to the chair after use without assistance. Plan: patient d/c home with resources Alize LYN, MAYNOR
== END 2023-01-24 17:44 | disposition home or self-care (01) ==
PROVIDERS: Emergency Provider Emergency Medicine; PCP Family Medicine; Visit Provider Emergency Medicine
DX: R42 Dizziness and giddiness (principal); G20 Parkinson's disease; F31.9 Bipolar disorder, unspecified; F41.9 Anxiety disorder, unspecified; R20.2 Paresthesia of skin; E78.5 Hyperlipidemia, unspecified; I12.9 Hypertensive chronic kidney disease with stage 1 through stage 4 chronic kidney disease, or unspecified chronic kidney disease; N18.9 Chronic kidney disease, unspecified; M79.7 Fibromyalgia; F44.9 Dissociative and conversion disorder, unspecified; Z79.899 Other long term (current) drug therapy; Z79.82 Long term (current) use of aspirin
CPT/HCPCS: 80048; 85025; 99282; A4216

== ENCOUNTER → 2023-09-05 | Outpatient (CLI) | payer MEDICARE, SELFPAY ==
[2023-09-05 13:12] LABS: T4 Free Direct 1.04 ng/dL (0.76-1.46); Thyroid Stim Hormone (TSH) 1.29 uIU/mL (0.358-3.74)
== END | disposition home or self-care (01) ==
LOC: MTLAB 09:45
PROVIDERS: PCP Family Medicine; Referring Provider Otolaryngology; Visit Provider Otolaryngology
DX: D44.0 Neoplasm of uncertain behavior of thyroid gland (principal)
CPT/HCPCS: 36415; 84439; 84443

== ENCOUNTER → 2023-09-08 | Outpatient (CLI) | payer MEDICARE, SELFPAY ==
--- NOTE | 2023-09-08 07:30 | RAD_ITS ---
STUDY: X-RAY - ESOPHAGUS (BARIUM SWALLOW) WITH FLUOROSCOPY REASON FOR EXAM: Female, 67 years old. DYSPHAGIA TECHNIQUE: 21 view(s) of the esophagus were obtained following swallowing of barium. FLUOROSCOPY TIME (if supplied): (31 seconds) minutes/seconds. 16.18 mGy COMPARISON: None. FINDINGS: There is no demonstrated esophageal foreign body. There is no demonstrated stricture or mucosal abnormality. Normal gastroesophageal junction, without a demonstrated hiatal hernia. The patient ingested a 12 mm tablet of barium without any difficulty. Normal visualized aortic arch and descending thoracic aorta. Normal visualized pulmonary parenchyma. Normal visualized osseous structures of the thorax. RAD/Esophagus Single Contrast IMPRESSION: Normal plain film x-ray examination (barium swallow) of the esophagus. Electronically Signed: Eros Chase MD at 9:00 EDT ,
--- NOTE | 2023-09-08 07:31 | US_ITS ---
STUDY: THYROID ULTRASOUND REASON FOR EXAM: Female, 67 years old. Known goiter, nodules TECHNIQUE: Ultrasound evaluation of the thyroid was performed with real-time and static dorsey-scale imaging. COMPARISON: None. FINDINGS: RIGHT LOBE: The right lobe of the thyroid gland measures 6.0 x 3.4 x 3.3 cm. There is a homogeneous echotexture. 3 separate stable solid hypoechoic nodules largest measures 2.5 cm next measures 1.9 cm, smallest 1.4 cm. Nodules have remained stable dating back to 2009. LEFT LOBE: The left lobe of the thyroid gland measures 6.0 x 4.1 x 2.7 cm. There is a homogeneous echotexture. 2 separate stable solid hypoechoic nodules larger measures 1.0 cm, smaller 0.8 cm. Nodules are unchanged dating back to 2012 ISTHMUS: The isthmus measures 4.8 mm. The regional lymph nodes are normal. US/Thyroid IMPRESSION: Stable enlarged homogeneous thyroid gland with stable bilateral solid hypoechoic nodules. Findings again consistent with goiter. Nodules are unchanged dating back to 2009 and 2012 Electronically Signed: Mathew Salas MD at 15:14 EDT ,
== END | disposition home or self-care (01) ==
PROVIDERS: PCP Family Medicine; Referring Provider Otolaryngology; Visit Provider Otolaryngology
DX: R13.13 Dysphagia, pharyngeal phase (principal); D44.0 Neoplasm of uncertain behavior of thyroid gland
CPT/HCPCS: 74220; 76536

== ENCOUNTER → 2024-02-12 | Outpatient (CLI) | payer MEDICARE, SELFPAY ==
[2024-02-12 10:52] LABS: Absolute Lymphocyte Count 2.88 X10^3/uL (0.83-4.51); Absolute Neutrophil Count 4.8 X10^3/uL (2.0-7.7); Basophil# 0.09 X10^3/uL; Eosinophil# 0.52 X10^3/uL; Eosinophils% 5.8 % (0-5); Hematocrit 43.9 % (37-47); Hemoglobin 14.6 g/dL (12.0-15.0); Lymphocyte # 2.88 X10^3/ul (0.83-4.51); Lymphocyte % 32.2 % (19-41); Mean Corp Hgb Conc 33.3 g/dL (32-36); Mean Corpuscular Hgb 31.5 pg (27.0-32.0); Mean Corpuscular Volume 94.6 fL (81-99); Mean Platelet Vol. 9.7 fl (6.2-12.0); Monocyte# 0.66 X10^3/uL; Monocyte% 7.4 % (0-10); NRBC Flagged by Analyzer 0 % (0-5); Neutrophil # 4.76 X10^3/uL (2.7-7.7); Neutrophil % 53.3 % (47-70); Platelet Count 237 K/mm3 (150-450); RBC Distribution Width CV 12.9 % (11.6-14.6); RBC Distribution Width SD 44.5 fl (35.1-43.9); Red Blood Count 4.64 M/mm3 (4.2-5.4); White Blood Count 8.9 K/mm3 (4.4-11.0)
[2024-02-12 11:26] LABS: ALB/GLOB Ratio 0.8 RATIO (0.9-2.4); AST(SGOT) 44 U/L (15-37); Alanine Aminotransfer ALT/SGPT 32 U/L (13-56); Albumin, Serum 3.7 g/dL (3.2-5.0); Alkaline Phosphatase 135 U/L (45-117); Anion Gap 7 (5-15); BUN 18 mg/dL (7-18); BUN/Creat Ratio 15.4 RATIO (10-20); Calcium,Total 9.5 mg/dL (8.5-10.1); Chloride 109 mmol/L (98-107); Cholesterol 188 mg/dL (200); Creatinine, Serum 1.17 mg/dL (0.55-1.02); EST Glomerular Filtration Rate 49 mL/min (>60); Est Glom Filt Rate - Afr Amer 59 mL/min (>60); Globulin 4.4 g/dL (2.2-4.2); Glucose 158 mg/dL (74-106); High Density Lipoprotein 52 mg/dL; Protein, Total 8.1 g/dL (6.4-8.2); Sodium Level 141 mmol/L (136-145); Triglycerides 183 mg/dL; Very Low Density Lipoprotein 37 mg/dL (5-40)
[2024-02-12 12:11] LABS: Hemoglobin A1c 5.9 % (3.8-5.6)
== END | disposition home or self-care (01) ==
LOC: LAB 10:16
PROVIDERS: PCP Family Medicine; Referring Provider Family Medicine; Visit Provider Family Medicine
DX: I12.9 Hypertensive chronic kidney disease with stage 1 through stage 4 chronic kidney disease, or unspecified chronic kidney disease (principal); I63.9 Cerebral infarction, unspecified; N18.30 Chronic kidney disease, stage 3 unspecified; E78.5 Hyperlipidemia, unspecified; R35.0 Frequency of micturition
CPT/HCPCS: 36415; 80053; 80061; 83036; 84443; 85025

== ENCOUNTER → 2024-02-12 | Outpatient (CLI) | payer SELFPAY ==
[2024-02-12 12:14] LABS: SERUM TEARS COLLECTION SPECIMEN PROCESSED
== END | disposition home or self-care (01) ==
LOC: LAB 10:06
PROVIDERS: PCP Family Medicine; Referring Provider Ophthalmology; Visit Provider Ophthalmology
DX: H16.143 Punctate keratitis, bilateral (principal)

== ENCOUNTER → 2024-02-27 | Outpatient (CLI) | payer MEDICARE, SELFPAY ==
[2024-02-27 15:23] LABS: Bacteria 0 SEEN /hpf (None Seen); Mucous, Urine 0 SEEN /hpf (<or=2+); Red Blood Cells-Urine 0 SEEN /hpf (0-5)
[2024-02-27 17:47] LABS: Color, Urine Yellow (Yellow); Glucose, Dipstick Normal (Normal); Ketone-Dipstick Negative (Negative); Leukocyte Esterase-Dipstick 100 /ul (Negative); Nitrite-Dipstick Negative (Negative); Occult Blood-Urine Negative /ul (Negative); Protein-Dipstick 15 mg/dl (Negative); Specific Gravity, Urine 1.025 (1.002-1.030); Urine Bilirubin Dipstick Negative (Negative); Urine Clarity Clear (Clear); Urine Urobilinogen Normal (Normal)
[2024-02-27 18:10] LABS: Calcium Oxalate Crystals Ur 1+ /hpf (<or=2+); Squamous Epithelial Cells - UA 0-5 SEEN /hpf (5-10); White Blood Cells 0-5 SEEN /hpf (0-5)
== END | disposition home or self-care (01) ==
LOC: BFHLAB 15:19 → LABSPEC 15:20
PROVIDERS: PCP Family Medicine; Referring Provider Family Medicine; Visit Provider Family Medicine
DX: R35.0 Frequency of micturition (principal)
CPT/HCPCS: 81001; 87086

== ENCOUNTER → 2024-06-13 | Outpatient (CLI) | payer MEDICARE, SELFPAY | END | disposition home or self-care (01) | LOC: PSN 12:52 | PROVIDERS: PCP Family Medicine; Referring Provider Family Medicine; Visit Provider Family Medicine | DX: R06.02 Shortness of breath (principal) | CPT/HCPCS: 94060; 94726; 94729 ==

== ENCOUNTER → 2024-07-26 | Outpatient (CLI) | payer MEDICARE, SELFPAY ==
[2024-07-26 12:44] LABS: Absolute Lymphocyte Count 2.92 X10^3/uL (0.83-4.51); Absolute Neutrophil Count 4.8 X10^3/uL (2.0-7.7); Basophil# 0.07 X10^3/uL; Basophil% 0.8 % (0-1); Eosinophil# 0.55 X10^3/uL; Eosinophils% 6.1 % (0-5); Hematocrit 42.8 % (37-47); Hemoglobin 14.1 g/dL (12.0-15.0); Lymphocyte # 2.92 X10^3/ul (0.83-4.51); Lymphocyte % 32.5 % (19-41); Mean Corp Hgb Conc 32.9 g/dL (32-36); Mean Corpuscular Hgb 29.6 pg (27.0-32.0); Mean Corpuscular Volume 89.7 fL (81-99); Mean Platelet Vol. 10.7 fl (6.2-12.0); Monocyte# 0.63 X10^3/uL; NRBC Flagged by Analyzer 0 % (0-5); Neutrophil # 4.78 X10^3/uL (2.7-7.7); Neutrophil % 53.2 % (47-70); Platelet Count 215 K/mm3 (150-450); RBC Distribution Width CV 11.9 % (11.6-14.6); RBC Distribution Width SD 38.7 fl (35.1-43.9); Red Blood Count 4.77 M/mm3 (4.2-5.4)
[2024-07-26 13:20] LABS: ALB/GLOB Ratio 0.8 RATIO (0.9-2.4); AST(SGOT) 44 U/L (15-37); Alanine Aminotransfer ALT/SGPT 35 U/L (13-56); Albumin, Serum 3.6 g/dL (3.2-5.0); Alkaline Phosphatase 180 U/L (45-117); Anion Gap 9 (5-15); BUN 15 mg/dL (7-18); Calcium,Total 9.8 mg/dL (8.5-10.1); Chloride 104 mmol/L (98-107); Cholesterol 190 mg/dL (200); EST Glomerular Filtration Rate 59 mL/min (>60); Est Glom Filt Rate - Afr Amer 71 mL/min (>60); Globulin 4.3 g/dL (2.2-4.2); Glucose 353 mg/dL (74-106); High Density Lipoprotein 51 mg/dL; Potassium 3.9 mmol/L (3.5-5.1); Protein, Total 7.9 g/dL (6.4-8.2); Rheumatoid Factor < 10.0 IU/mL (<15); Sodium Level 137 mmol/L (136-145); Triglycerides 200 mg/dL; Very Low Density Lipoprotein 40 mg/dL (5-40)
[2024-07-26 14:31] LABS: Hemoglobin A1c 12.2 % (3.8-5.6)
[2024-07-29 15:07] LABS: PROEL- A/G Ratio 0.9 (0.7-1.7); PROEL- Albumin 3.5 g/dL (2.9-4.4); PROEL- Alpha-1 Globulin 0.2 g/dL (0.0-0.4); PROEL- Alpha-2 Globulin 1.1 g/dL (0.4-1.0); PROEL- Beta Globulin 1.3 g/dL (0.7-1.3); PROEL- Gamma Globulin 1.2 g/dL (0.4-1.8); PROEL- Globulin, Total 3.8 g/dL (2.2-3.9); PROEL- TOTAL PROTEIN 7.3 g/dL (6.0-8.5); PROEL-M-Spike Not Observed g/dL (Not Observed)
== END | disposition home or self-care (01) ==
LOC: MTLAB 09:30
PROVIDERS: PCP Family Medicine
DX: L30.9 Dermatitis, unspecified (principal); G20.A1 Parkinson's disease without dyskinesia, without mention of fluctuations
CPT/HCPCS: 36415; 80053; 80061; 83036; 84165; 85025; 86431

== ENCOUNTER → 2024-08-20 | Outpatient (CLI) | payer MEDICARE, SELFPAY ==
[2024-08-20 12:09] LABS: SERUM TEARS COLLECTION SPECIMEN PROCESSED
== END | disposition home or self-care (01) ==
LOC: LAB 10:01
PROVIDERS: PCP Family Medicine; Referring Provider Ophthalmology; Visit Provider Ophthalmology
DX: H16.143 Punctate keratitis, bilateral (principal)

== ENCOUNTER → 2024-09-11 | Outpatient (CLI) | payer MEDICARE, SELFPAY ==
--- NOTE | 2024-09-11 13:23 | US_ITS ---
STUDY: THYROID ULTRASOUND REASON FOR EXAM: Female, 68 years old. nodules TECHNIQUE: Ultrasound evaluation of the thyroid was performed with real-time and static dorsey-scale imaging. COMPARISON: 09/08/2023 FINDINGS: RIGHT LOBE: The right lobe of the thyroid gland measures 6.2 x 3.2 x 2.6 cm. There is a heterogeneous echotexture. Nodule 1: No change in the 28 x 14 x 21 mm solid isoechoic wider than tall ill-defined margin nodule with no echogenic foci (TR 3) in the anterior right lobe for which ultrasound-guided biopsy is recommended if never performed. Nodule 2: No change in a 22 x 16 x 21 mm solid hypoechoic wider than tall smoothly margin nodule with no echogenic foci (TR 4) in the mid right lobe for which ultrasound-guided biopsy is recommended if never performed. Nodule 3: No change from the 15 x 11 x 13 mm solid hypoechoic wider than tall ill-defined margin nodule with no echogenic foci (TR 4) in the inferior right lobe and follow-up ultrasound is recommended in one year. LEFT LOBE: The left lobe of the thyroid gland measures 6.9 x 3.2 x 2.6 cm. There is a homogeneous echotexture. Nodule 4: No change in a 14 x 10 x 10 mm mixed cystic and solid isoechoic wider than tall smoothly marginated nodule with no echogenic foci (TR 2) in the posterior left lobe consistent with an adenoma. ISTHMUS: The isthmus measures 6 mm thick. . The regional lymph nodes are normal. US/Thyroid IMPRESSION: No change in multinodular thyroid gland. Biopsy of some nodules is recommended if never performed. Follow-up ultrasound is recommended in one year. Electronically Signed: Ruddy Fairchild MD at 10:28 EDT ,
== END | disposition home or self-care (01) ==
LOC: US 13:21
PROVIDERS: PCP Family Medicine; Referring Provider Otolaryngology; Visit Provider Otolaryngology
DX: D44.0 Neoplasm of uncertain behavior of thyroid gland (principal)
CPT/HCPCS: 76536

== ENCOUNTER 2024-09-17 08:30 | Outpatient (RCR) | payer MEDICARE, SELFPAY ==
--- NOTE | 2024-03-27 16:02 | HP.PTEVAL ---
Patient's Visit Information Visit Information Visit Information: ELLE DUGAN is a 68 year old F referred to Physical Therapy by DOTTIE WANG with a diagnosis of Parkinsonism/spinal stenosis. Date of Evaluation: 03/27/24 Physical Therapist: MISSY Leggett Visit Plan Frequency: 2x /Week Duration: 3 Months Plan: 2X/ week for 8-12 weeks for Neutral spine core stability, B piriformis stretching, LE strength, gait training, balance activities, with HEP HEP: LTR Subjective Subjective: PD dx in 2021 and spinal stenosis of L spine. She has been hurting a lot from pelvis down. They are not sure what is going on. She has an MRI of her spine in 2 weeks to see if something is pinched. She can not lean FW or she will fall. She struggles to get out of a chair and needs to push self out of the chair. Sometimes she will fall back into the chair. The pain is really bad lately in back and B leg pain (from the pelvis down). She has Anxiety and depression for a long time. She is in consoling. She is not a harm to herself. When she is in pain she takes 5-6 Tylenol. Ice helps. Heat makes it throb. She sits a lot. She has steps at home and has fallen off of them in August and missed the bottom step and sprained her L knee. She has railings on her steps. She does them step 2 gait pattern. She does not sleep well. She does not sleep for more than hours Pain Back: Pain Intensity (Out of 10): 8 B leg pain: Pain Intensity (Out of 10): 8 Objective Objective: Gait: walks with shorter stride and increase verring with arms outstretched and very little trunk rotation LE MMT: Sit to stand using arms on thighs to get up R hip flexion 8.8 and L 6.4 R knee ext 11 and L 9.3 R knee flex 9.2 and L 7.1 Patellar DTR 3+/3 B Trunk AROM: flexion 50, ext 50, SB B 50, Rot B 50 FGA: 17 Sitting opp arm and leg X 10 in a row Standing heel and toe raises: pt is able to heel and toe raise LTR B tight Pt has tight B Piriformis Balance/Special Test Scores Functional Gait Assessment Score: 17 % Disability: 43.3400 Lower Extremity Functional Score: 12 Goals Goal 1:: I HEP Goal Time Frame: 8-12 Weeks Goal 2:: Decrease back pain and LE pain by 50% Goal Time Frame: 8-12 Weeks Goal 3:: Increase LE strength (at the time of the eval: R hip flexion 8.8 and L 6.4 R knee ext 11 and L 9.3 R knee flex 9.2 and L 7.1) Goal Time Frame: 8-12 Weeks Goal 4:: Increase balance (FGA at eval was 17) Goal Time Frame: 8-12 Weeks Goal 5:: Sit to stand X 10 without UE's without falling back Goal Time Frame: 8-12 Weeks Goal 6:: Be able to walk with longer strides and less veering Goal Time Frame: 8-12 Weeks Rehabilitation Potential Rehabilitation Potential: Good Anticipated Interventions Patient/Client Instruction: Educate patient on: Condition and Plan of Care For the Purpose of:: To decrease pain, To increase ROM, To improve nutrient delivery to tissue, To improve muscle performance and motor function, To improve ability to perform ADL's, To increase tolerance to activity/condition/position, To improve performance and independence with ADL's, To decrease level of supervision to perform tasks, To improve gait and locomotor functions, To improve health of tissue, To decrease soft tissue restriction, To increase flexibility/ROM, To improve endurance, To improve balance and To improve safety with gait Therapeutic Exercise to Include: Strength training, Endurance training, Balance training, Postural training, Flexibilty training, Gait and locomotor training, Neuromotor development, Passive ROM, Active ROM, Dynamic Lumbar Stabilization and Scapular Strength/Stabilization For the Purpose of:: To decrease pain, To increase ROM, To improve nutrient delivery to tissue, To improve muscle performance and motor function, To improve ability to perform ADL's, To increase tolerance to activity/condition/position, To improve performance and independence with ADL's, To decrease level of supervision to perform tasks, To improve ability of physical actions for home/community/work/leisure, To improve gait and locomotor functions, To improve health of tissue, To decrease soft tissue restriction, To increase flexibility/ROM, To improve endurance, To improve balance and To improve safety with gait Functional Training to Include: Gait training For the Purpose of:: To improve gait and locomotor functions and To improve safety with gait Manual Therapy Techniques to Include: Passive ROM and Soft tissue mobilization For the Purpose of:: To decrease pain, To increase ROM and To improve nutrient delivery to tissue Text: Thank you for the opportunity to evaluate your patient. For Medicare and Medicare HMO plans, please review the plan of care and approve it. It will need to be FAXED BACK to us at [phone] for Medicare purposes. For Medicare only, by signing this I certify the plan of care. Please let me know if there are questions or concerns regarding this plan of care. Physician Signature: Date:
--- NOTE | 2024-05-01 14:00 | HP.PTREVAL ---
Re-Evaluation Intro: DOTTIE WANG, It has been my pleasure to treat ELLE DUGAN over the last 8 visits for Parkinsonism/spinal stenosis. Please see the progress note below for an update on the physical therapy plan of care! Subjective Subjective: She had some SOB last visit and it lasted a little after her PT session. She needs to call her Dr and get in. Objective Objective/Function: Pt is still SOB today with increase in exercise...deep breathing helps FGA 17 Sit to stand X 10 Plan Plan Plan: Pt will see PT at 10th visit. 2X/ week for 8-12 weeks for Neutral spine core stability, B piriformis stretching, LE strength, gait training, balance activities, with HEP HEP: LTR Balance/Gait/Functional tests Balance/Special Test Scores Functional Gait Assessment Score: 17 % Disability: 43.3400 Lower Extremity Functional Score: 13 Goals Goals Goal 1:: I HEP Goal Time Frame: 8-12 Weeks Goal 2:: Decrease back pain and LE pain by 50% Goal Time Frame: 8-12 Weeks Goal Progress: Progressing Goal 3:: Increase LE strength (at the time of the eval: R hip flexion 8.8 and L 6.4 R knee ext 11 and L 9.3 R knee flex 9.2 and L 7.1) Goal Time Frame: 8-12 Weeks Goal 4:: Increase balance (FGA at eval was 17) Goal Time Frame: 8-12 Weeks Goal 5:: Sit to stand X 10 without UE's without falling back Goal Time Frame: 8-12 Weeks Goal Progress: Goal Met Goal 6:: Be able to walk with longer strides and less veering Goal Time Frame: 8-12 Weeks Anticipated Interventions Anticipated Interventions Patient/Client Instruction: Educate patient on: Condition and Plan of Care For the Purpose of:: To decrease pain, To increase ROM, To improve nutrient delivery to tissue, To improve muscle performance and motor function, To improve ability to perform ADL's, To increase tolerance to activity/condition/position, To improve performance and independence with ADL's, To decrease level of supervision to perform tasks, To improve gait and locomotor functions, To improve health of tissue, To decrease soft tissue restriction, To increase flexibility/ROM, To improve endurance, To improve balance and To improve safety with gait Therapeutic Exercise to Include: Strength training, Endurance training, Balance training, Postural training, Flexibilty training, Gait and locomotor training, Neuromotor development, Passive ROM, Active ROM, Dynamic Lumbar Stabilization and Scapular Strength/Stabilization For the Purpose of:: To decrease pain, To increase ROM, To improve nutrient delivery to tissue, To improve muscle performance and motor function, To improve ability to perform ADL's, To increase tolerance to activity/condition/position, To improve performance and independence with ADL's, To decrease level of supervision to perform tasks, To improve ability of physical actions for home/community/work/leisure, To improve gait and locomotor functions, To improve health of tissue, To decrease soft tissue restriction, To increase flexibility/ROM, To improve endurance, To improve balance and To improve safety with gait Functional Training to Include: Gait training For the Purpose of:: To improve gait and locomotor functions and To improve safety with gait Manual Therapy Techniques to Include: Passive ROM and Soft tissue mobilization For the Purpose of:: To decrease pain, To increase ROM and To improve nutrient delivery to tissue Re-Evaluation Ending Re-evaluation ending: Please do not hesitate to contact me at [phone] by phone or if you have questions or concerns regarding this new plan of care! Sincerely, Cecy Suggs, MPT
--- NOTE | 2024-05-27 11:01 | HP.PTREVAL_ITS ---
Re-Evaluation Intro: DOTTIE WANG, It has been my pleasure to treat ELLE DUGAN over the last 13 visits for Parkinsonism/spinal stenosis. Please see the progress note below for an update on the physical therapy plan of care! Subjective Subjective: She is still wheezing and not working. She overdid exercises on Monday. She is feeling like she can move more and she is back to attempting stairs again and the foam she feels that she is to the point she is not going to fall. Objective Objective/Function: R hip flexion 8.8 and L 6.7 R knee ext 11 and L 9.3 R knee flex 9.2 and L 7.1) FGA: 16 Gait: shorter stride and wider ASHLI Pt is still SOB Plan Plan Plan: 2X/ week for 8-12 weeks for Neutral spine core stability, B piriformis st retching, LE strength, gait training, balance activities, with HEP HEP: LTR Balance/Gait/Functional tests Balance/Special Test Scores Functional Gait Assessment Score: 16 % Disability: 46.6700 Lower Extremity Functional Score: 19 Goals Goals Goal 1:: I HEP Goal Time Frame: 8-12 Weeks Goal Progress: Progressing Goal 2:: Decrease back pain and LE pain by 50% Goal Time Frame: 8-12 Weeks Goal Progress: Progressing Goal 3:: Increase LE strength (at the time of the eval: R hip flexion 8.8 and L 6.4 R knee ext 11 and L 9.3 R knee flex 9.2 and L 7.1) Goal Time Frame: 8-12 Weeks Goal 4:: Increase balance (FGA at eval was 17) Goal Time Frame: 8-12 Weeks Goal 5:: Sit to stand X 10 without UE's without falling back Goal Time Frame: 8-12 Weeks Goal Progress: Goal Met Goal 6:: Be able to walk with longer strides and less veering Goal Time Frame: 8-12 Weeks Anticipated Interventions Anticipated Interventions Patient/Client Instruction: Educate patient on: Condition and Plan of Care For the Purpose of:: To decrease pain, To increase ROM, To improve nutrient delivery to tissue, To improve muscle performance and motor function, To improve ability to perform ADL's, To increase tolerance to activity/condition/position, To improve performance and independence with ADL's, To decrease level of supervision to perform tasks, To improve gait and locomotor functions, To improve health of tissue, To decrease soft tissue restriction, To increase flexibility/ROM, To improve endurance, To improve balance and To improve safety with gait Therapeutic Exercise to Include: Strength training, Endurance training, Balance training, Postural training, Flexibilty training, Gait and locomotor training, Neuromotor development, Passive ROM, Active ROM, Dynamic Lumbar Stabilization and Scapular Strength/Stabilization For the Purpose of:: To decrease pain, To increase ROM, To improve nutrient delivery to tissue, To improve muscle performance and motor function, To improve ability to perform ADL's, To increase tolerance to activity/condition/position, To improve performance and independence with ADL's, To decrease level of supervision to perform tasks, To improve ability of physical actions for home/community/work/leisure, To improve gait and locomotor functions, To improve health of tissue, To decrease soft tissue restriction, To increase flexibility/ROM, To improve endurance, To improve balance and To improve safety with gait Functional Training to Include: Gait training For the Purpose of:: To improve gait and locomotor functions and To improve safety with gait Manual Therapy Techniques to Include: Passive ROM and Soft tissue mobilization For the Purpose of:: To decrease pain, To increase ROM and To improve nutrient delivery to tissue Re-Evaluation Ending Re-evaluation ending: Please do not hesitate to contact me at [phone] by phone or if you have questions or concerns regarding this new plan of care! Sincerely, MISSY Leggett
--- NOTE | 2024-06-11 10:45 | HP.PTREVAL ---
Re-Evaluation Intro: DOTTIE WANG, It has been my pleasure to treat ELLE DUGAN over the last 16 visits for Parkinsonism/spinal stenosis. Please see the progress note below for an update on the physical therapy plan of care! Subjective Subjective: Pt has a pulmonary function test for her lungs. She is hoping it is not a walk on the TM because she could not do it during cardiac rehab. Her breathing seems to be her most limiting factor at this point. Pt is not where she wants to be. Pt wants more balance training and stairs. Pt has an MRI of Both hips next week. Objective Objective/Function: R hip flexion 11.2 and L 12.3 R knee ext 11.9 and L 10.5 R knee flex 11.8 and L 9 Gait: Pt walks with decrease stride length and increase veering at times. FGA: 14 (off now with walking with vertical and horizontal head turns and turning 180 degrees) Patient was SOB the entire time during reassessment today and I feel that her breathing is hindering PT progress at this time. Will see how her breathing test comes out. Plan Plan Plan: Pt is getting a pulmonary function test and MRI of B hips this week. 2X/ week for 8-12 weeks for balance, stairs, and gait. HEP: LTR Balance/Gait/Functional tests Balance/Special Test Scores Functional Gait Assessment Score: 14 % Disability: 53.3400 Lower Extremity Functional Score: 19 Goals Goals Goal 1:: I HEP Goal Time Frame: 8-12 Weeks Goal Progress: Progressing Goal 2:: Decrease back pain and LE pain by 50% Goal Time Frame: 8-12 Weeks Goal Progress: Progressing Goal 3:: Increase LE strength (at the time of the eval: R hip flexion 8.8 and L 6.4 R knee ext 11 and L 9.3 R knee flex 9.2 and L 7.1) Goal Time Frame: 8-12 Weeks Goal 4:: Increase balance (FGA at eval was 17) Goal Time Frame: 8-12 Weeks Goal 5:: Sit to stand X 10 without UE's without falling back Goal Time Frame: 8-12 Weeks Goal Progress: Goal Met Goal 6:: Be able to walk with longer strides and less veering Goal Time Frame: 8-12 Weeks Goal Progress: Progressing Anticipated Interventions Anticipated Interventions Patient/Client Instruction: Educate patient on: Condition and Plan of Care For the Purpose of:: To decrease pain, To increase ROM, To improve nutrient delivery to tissue, To improve muscle performance and motor function, To improve ability to perform ADL's, To increase tolerance to activity/condition/position, To improve performance and independence with ADL's, To decrease level of supervision to perform tasks, To improve gait and locomotor functions, To improve health of tissue, To decrease soft tissue restriction, To increase flexibility/ROM, To improve endurance, To improve balance and To improve safety with gait Therapeutic Exercise to Include: Strength training, Endurance training, Balance training, Postural training, Flexibilty training, Gait and locomotor training, Neuromotor development, Passive ROM, Active ROM, Dynamic Lumbar Stabilization and Scapular Strength/Stabilization For the Purpose of:: To decrease pain, To increase ROM, To improve nutrient delivery to tissue, To improve muscle performance and motor function, To improve ability to perform ADL's, To increase tolerance to activity/condition/position, To improve performance and independence with ADL's, To decrease level of supervision to perform tasks, To improve ability of physical actions for home/community/work/leisure, To improve gait and locomotor functions, To improve health of tissue, To decrease soft tissue restriction, To increase flexibility/ROM, To improve endurance, To improve balance and To improve safety with gait Functional Training to Include: Gait training For the Purpose of:: To improve gait and locomotor functions and To improve safety with gait Manual Therapy Techniques to Include: Passive ROM and Soft tissue mobilization For the Purpose of:: To decrease pain, To increase ROM and To improve nutrient delivery to tissue Re-Evaluation Ending Re-evaluation ending: Please do not hesitate to contact me at [phone] by phone or if you have questions or concerns regarding this new plan of care! Sincerely, Cecy Suggs, MPT
--- NOTE | 2024-07-08 12:07 | HP.PTREVAL ---
Re-Evaluation Intro: DOTTIE WANG, It has been my pleasure to treat ELLE DUGAN over the last 21 visits for Parkinsonism/spinal stenosis. Please see the progress note below for an update on the physical therapy plan of care! Subjective Subjective: Pt reports that she as a Pulmonary appt on the and spine Dr on the . Her back pain is still there...Her back pain has not changed. Her R knee pops and if steps sideways her L knee will pop also. Objective Objective/Function: R hip flexion 10.8 and L 9.9 R knee ext 11 and L 11.5 R knee flex 10 and L 8.1 Gait: Walks with wider ASHLI and decreased trunk rotation but bigger strides and no veering for approx 100 feet. Plan Plan Plan: Pt will do HEP until 08/12. Hold chart until Aug 12 after pulmonary appt. Balance/Gait/Functional tests Balance/Special Test Scores Functional Gait Assessment Score: 14 % Disability: 53.3400 Lower Extremity Functional Score: 11 Goals Goals Goal 1:: I HEP Goal Time Frame: 8-12 Weeks Goal Progress: Goal Met Goal 2:: Decrease back pain and LE pain by 50% Goal Time Frame: 8-12 Weeks Goal Progress: Progressing Goal 3:: Increase LE strength (at the time of the eval: R hip flexion 8.8 and L 6.4 R knee ext 11 and L 9.3 R knee flex 9.2 and L 7.1) Goal Time Frame: 8-12 Weeks Goal Progress: Progressing Goal 4:: Increase balance (FGA at eval was 17) Goal Time Frame: 8-12 Weeks Goal 5:: Sit to stand X 10 without UE's without falling back Goal Time Frame: 8-12 Weeks Goal Progress: Goal Met Goal 6:: Be able to walk with longer strides and less veering Goal Time Frame: 8-12 Weeks Goal Progress: Progressing Anticipated Interventions Anticipated Interventions Patient/Client Instruction: Educate patient on: Condition and Plan of Care For the Purpose of:: To decrease pain, To increase ROM, To improve nutrient delivery to tissue, To improve muscle performance and motor function, To improve ability to perform ADL's, To increase tolerance to activity/condition/position, To improve performance and independence with ADL's, To decrease level of supervision to perform tasks, To improve gait and locomotor functions, To improve health of tissue, To decrease soft tissue restriction, To increase flexibility/ROM, To improve endurance, To improve balance and To improve safety with gait Therapeutic Exercise to Include: Strength training, Endurance training, Balance training, Postural training, Flexibilty training, Gait and locomotor training, Neuromotor development, Passive ROM, Active ROM, Dynamic Lumbar Stabilization and Scapular Strength/Stabilization For the Purpose of:: To decrease pain, To increase ROM, To improve nutrient delivery to tissue, To improve muscle performance and motor function, To improve ability to perform ADL's, To increase tolerance to activity/condition/position, To improve performance and independence with ADL's, To decrease level of supervision to perform tasks, To improve ability of physical actions for home/community/work/leisure, To improve gait and locomotor functions, To improve health of tissue, To decrease soft tissue restriction, To increase flexibility/ROM, To improve endurance, To improve balance and To improve safety with gait Functional Training to Include: Gait training For the Purpose of:: To improve gait and locomotor functions and To improve safety with gait Manual Therapy Techniques to Include: Passive ROM and Soft tissue mobilization For the Purpose of:: To decrease pain, To increase ROM and To improve nutrient delivery to tissue Re-Evaluation Ending Re-evaluation ending: Please do not hesitate to contact me at [phone] by phone or if you have questions or concerns regarding this new plan of care! Sincerely, MISSY Leggett
--- NOTE | 2024-08-19 10:57 | HP.PTREVAL ---
Re-Evaluation Intro: DOTTIE WANG, It has been my pleasure to treat ELLE DUGAN over the last 22 visits for Parkinsonism/spinal stenosis. Please see the progress note below for an update on the physical therapy plan of care! Subjective Subjective: Pt found out she is diabetic. She is taking an inhaler twice a day. Her breathing has been better. Her anxiety level is very high. They increased her Lyrica due to her spine pain (LB) being more. She gets back ache at 3-4:00 or has to bend forward for it to hurt. It has helped some. She is on a mucus relief to help with her breathing and that is helping too. They are not addressing the anxiety until they work on the breathing. She has situational anxiety (like too many people in the waiting room). She has her appt tomm with her therapist dale. Her fasting blood sugar was 353 and now it is down to 132. She is watching her diet. She has been doing her exercises at home (kitchen sink). She feels she is still going L with balance, jayy in the yard. Objective Objective/Function: Pt was not as SOB today with re-eval. Gait: Walks with short stride, some veering to the L FGA: 13 LE MMT: R hip flexion 11.2 and L 9.9 R knee ext 11.3 and L 11.5 R knee flex 10.5 and L 9.2 Plan Plan Plan: See the patient 1X/ week for 4 weeks for static and dynamic balance, gait with head turns, foam work and HEP. Pt is thinking about [employer] membership and looking to do some machines but will let us know if she decides to go that route. Balance/Gait/Functional tests Balance/Special Test Scores Functional Gait Assessment Score: 13 % Disability: 56.6700 Lower Extremity Functional Score: 15 Goals Goals Goal 1:: I HEP Goal Time Frame: 8-12 Weeks Goal Progress: Goal Met Goal 2:: Decrease back pain and LE pain by 50% Goal Time Frame: 8-12 Weeks Goal Progress: Progressing Goal 3:: Increase LE strength (at the time of the eval: R hip flexion 8.8 and L 6.4 R knee ext 11 and L 9.3 R knee flex 9.2 and L 7.1) Goal Time Frame: 8-12 Weeks Goal Progress: Progressing Goal 4:: Increase balance (FGA at Re-eval was 13) Goal Time Frame: 8-12 Weeks Goal 5:: Be able to walk with longer strides and less veering Goal Time Frame: 8-12 Weeks Goal Progress: Goal Met Goal 6:: Be able to walk with longer strides and less veering Goal Time Frame: 8-12 Weeks Goal Progress: Progressing Anticipated Interventions Anticipated Interventions Patient/Client Instruction: Educate patient on: Condition and Plan of Care For the Purpose of:: To decrease pain, To increase ROM, To improve nutrient delivery to tissue, To improve muscle performance and motor function, To improve ability to perform ADL's, To increase tolerance to activity/condition/position, To improve performance and independence with ADL's, To decrease level of supervision to perform tasks, To improve gait and locomotor functions, To improve health of tissue, To decrease soft tissue restriction, To increase flexibility/ROM, To improve endurance, To improve balance and To improve safety with gait Therapeutic Exercise to Include: Strength training, Endurance training, Balance training, Postural training, Flexibilty training, Gait and locomotor training, Neuromotor development, Passive ROM, Active ROM, Dynamic Lumbar Stabilization and Scapular Strength/Stabilization For the Purpose of:: To decrease pain, To increase ROM, To improve nutrient delivery to tissue, To improve muscle performance and motor function, To improve ability to perform ADL's, To increase tolerance to activity/condition/position, To improve performance and independence with ADL's, To decrease level of supervision to perform tasks, To improve ability of physical actions for home/community/work/leisure, To improve gait and locomotor functions, To improve health of tissue, To decrease soft tissue restriction, To increase flexibility/ROM, To improve endurance, To improve balance and To improve safety with gait Functional Training to Include: Gait training For the Purpose of:: To improve gait and locomotor functions and To improve safety with gait Manual Therapy Techniques to Include: Passive ROM and Soft tissue mobilization For the Purpose of:: To decrease pain, To increase ROM and To improve nutrient delivery to tissue Re-Evaluation Ending Re-evaluation ending: Please do not hesitate to contact me at [phone] by phone or if you have questions or concerns regarding this new plan of care! Sincerely, Cecy Suggs, MPT
--- NOTE | 2024-09-17 09:16 | HP.PTDCSUM ---
Discharge Summary D/C summary: It has been my pleasure to treat ELLE DUGAN referred by DOTTIE WANG, with the diagnosis of Parkinsonism/spinal stenosis for a total of 26 visit(s). Discharge Date: 09/17/24 Please see the following information for a summary of their discharge status. Subjective Subjective: Pt reports that the walking last time made her legs sore. She reports that her balance was pretty good and then she got one of the going to the R things and hit the door frame and the wall. She side steps sometimes to correct her balance. Pain Back: Pain Intensity (Out of 10): 6 B leg pain: Pain Intensity (Out of 10): Unrated B hip pain: Pain Intensity (Out of 10): 0 Overall Improvement % Improvement: 50 Objective Objective/Function: R hip flexion 9.2 and L 10.3 R knee ext 11 and L 10.7 R knee flex 9.2 and L 7.1 FGA 17 Goals Goal 1:: I HEP Goal Progress: Goal Met Goal 2:: Decrease back pain and LE pain by 50% Goal Progress: Goal Met Goal 3:: Increase LE strength (at the time of the eval: R hip flexion 8.8 and L 6.4 R knee ext 11 and L 9.3 R knee flex 9.2 and L 7.1) Goal Progress: Goal Met Goal 4:: Increase balance (FGA at Re-eval was 13) Goal Progress: Goal Met Goal 5:: Be able to walk with longer strides and less veering Goal Progress: Goal Met Goal 6:: Be able to walk with longer strides and less veering Goal Progress: Goal Met Plan Plan: DC PT to HEP D/C Information Discharge Comments: DC PT to HEP d/c sentence: If there are questions or concerns regarding this patient's physical therapy, please feel free to call me at [phone]. Thank you for the referral of this patient. Sincerely, Cecy Suggs, MPT Balance/Gait/Functional tests Balance/Special Test Scores Functional Gait Assessment Score: 17 % Disability: 43.3400 Lower Extremity Functional Score: 20 Improvement % Improvement: 50
--- NOTE | 2024-10-15 14:39 | HP.SP.DC ---
ST Discharge Summary Discharged: Discharge: Jacque Knapp is discharged from speech therapy at [facility] as of 10/15/24. 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 She was treated for a total of 10 visits after her initial evaluation. Patient was provided with multiple support systems for recall such as a process planner, a phone, as well as creating routines at home. In june she stated she wanted to discuss with her referring neurologist further therapy. No further visits are schedule at this time and she is discharged. Please see daily notes and plan of care for complete details. Thank you for allowing me to participate in the care of this patient.
== END 2024-09-17 10:31 | disposition home or self-care (01) ==
LOC: PT 08:30
PROVIDERS: PCP Family Medicine
DX: R41.9 Unspecified symptoms and signs involving cognitive functions and awareness (principal); M48.061 Spinal stenosis, lumbar region without neurogenic claudication; G21.19 Other drug induced secondary parkinsonism; R49.0 Dysphonia
CPT/HCPCS: 92507; 97110; 97113; 97162; 97530

== ENCOUNTER 2024-10-23 13:30 | Outpatient (RCR) | payer MEDICARE, SELFPAY ==
--- NOTE | 2024-09-27 10:30 | HP.PTEVAL ---
Patient's Visit Information Visit Information Visit Information: ELLE DUGAN is a 69 year old F referred to Physical Therapy by Dr. 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 Date of Evaluation: 09/27/24 Physical Therapist: MISSY Leggett Visit Plan Frequency: 2x /Week Duration: 3 Weeks Plan: Pt needs to shadow the PD class and decide if that is the route she wants to take or HEP after this round of PT. 2X/ week for 3 weeks to work on balance (especially looking up and down), stairs, foam work, High level balance with HEP or go to PD class Subjective Subjective: Pt messaged her Dr because she wanted more PT and he put in the order. Pt reports that she is looking into the PD class but having transportation issues. She feels that she is still having balance issues, breathing issues (has asthma). She is not doing the floor exercises but told her she can do them on the bed. She is going to have an epidural shot on the . Pain Back pain: Pain Intensity (Out of 10): 2 Objective Objective: Gait: Walks with normal gait pattern with straight trunk and occ slight veer but corrects Sit to stand on first attempt with no UE support FGA: 21 CATSIB: 115/120 TUG 12:37 LE MMT: B hip flex 4/5 B knee flex 4/5 B knee ext 4/5 During balance assessment pt will tend to over correct any slight retro unsteadiness. She tends to overcorrect her slight retro unsteadiness but is stable every time today during the eval. Stairs: up and down recip with 2 hand rails with CGA. Pt has some hesitancy descending stairs and does not put her foot out far enough. Balance/Special Test Scores Functional Gait Assessment Score: 21 % Disability: 30.0000 CATSIB Score (Max score 120 seconds): 115 Lower Extremity Functional Score: 21 Goals Goal 1:: I HEP and gym program and possible PD class Goal Time Frame: 2-4 Weeks Goal 2:: Increase balance (CATSIB was 114/120 on eval) Goal Time Frame: 2-4 Weeks Goal 3:: Be able to go up and down the steps recip with ease and no hesitancy with SBA, jayy descending steps Goal Time Frame: 2-4 Weeks Goal 4:: Pt to shadow PD class Goal Time Frame: 2-4 Weeks Rehabilitation Potential Rehabilitation Potential: Good Anticipated Interventions Patient/Client Instruction: Educate patient on: Condition and Plan of Care For the Purpose of:: To improve muscle performance and motor function, To improve ability to perform ADL's, To increase tolerance to activity/condition/position, To improve performance and independence with ADL's, To decrease level of supervision to perform tasks, To improve ability of physical actions for home/community/work/leisure, To improve gait and locomotor functions, To improve health of tissue, To improve endurance, To improve balance and To improve safety with gait Therapeutic Exercise to Include: Strength training, Endurance training, Balance training, Coordination, Body mechanics, Postural training, Flexibilty training, Gait and locomotor training and Neuromotor development For the Purpose of:: To improve nutrient delivery to tissue, To improve muscle performance and motor function, To improve ability to perform ADL's, To increase tolerance to activity/condition/position, To improve performance and independence with ADL's, To decrease level of supervision to perform tasks, To improve ability of physical actions for home/community/work/leisure, To improve gait and locomotor functions, To increase flexibility/ROM, To improve endurance, To improve balance and To improve safety with gait Functional Training to Include: Gait training For the Purpose of:: To improve gait and locomotor functions and To improve safety with gait Text: Thank you for the opportunity to evaluate your patient. For Medicare and Medicare HMO plans, please review the plan of care and approve it. It will need to be FAXED BACK to us at [phone] for Medicare purposes. For Medicare only, by signing this I certify the plan of care. Please let me know if there are questions or concerns regarding this plan of care. Physician Signature: Date:
--- NOTE | 2024-10-23 14:04 | HP.PTDCSUM ---
Discharge Summary D/C summary: It has been my pleasure to treat ELLE DUGAN referred by Dr. 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 Discharge Date: Please see the following information for a summary of their discharge status. Subjective Subjective: Pt shadowed the 12:00 class and it was too fast for her. She will try the 1:00 class next week which will be more her speed. Pt reports that her endurance is better and she is keeping her balance a lot better. Pain Back pain: Pain Intensity (Out of 10): Unrated Overall Improvement % Improvement: 80 Objective Objective/Function: CATSIB 120/120 Stairs: up and down steps recip with 2 hand rails with no hesitancy Goals Goal 1:: I HEP and gym program and possible PD class Goal Progress: Goal Met Goal 2:: Increase balance (CATSIB was 114/120 on eval) Goal Progress: Goal Met Goal 3:: Be able to go up and down the steps recip with ease and no hesitancy with SBA, jayy descending steps Goal Progress: Goal Met Goal 4:: Pt to shadow PD class Goal Progress: Goal Met Plan Plan: DC PT to PD class (1:00 class) D/C Information d/c sentence: If there are questions or concerns regarding this patient's physical therapy, please feel free to call me at [phone]. Thank you for the referral of this patient. Sincerely, Cecy Suggs, MPT Balance/Gait/Functional tests Balance/Special Test Scores Functional Gait Assessment Score: 21 % Disability: 30.0000 CATSIB Score (Max score 120 seconds): 115 Lower Extremity Functional Score: 16 Improvement % Improvement: 80
== END 2024-10-23 19:00 | disposition home or self-care (01) ==
LOC: PT 13:30
PROVIDERS: PCP Family Medicine; Referring Provider Psychiatry & Neurology Neurology; Visit Provider Psychiatry & Neurology Neurology
DX: G21.19 Other drug induced secondary parkinsonism (principal)
CPT/HCPCS: 97110; 97161; 97530

== ENCOUNTER → 2025-02-26 | Outpatient (CLI) | payer MEDICARE, SELFPAY ==
[2025-02-26 17:54] LABS: Absolute Lymphocyte Count 2.28 X10^3/uL (0.83-4.51); Absolute Neutrophil Count 8.7 X10^3/uL (2.0-7.7); Basophil% 0.8 % (0-1); Eosinophil# 0.39 X10^3/uL; Eosinophils% 3.2 % (0-5); Hematocrit 41.3 % (37-47); Hemoglobin 13.9 g/dL (12.0-15.0); Lymphocyte # 2.28 X10^3/ul (0.83-4.51); Lymphocyte % 18.6 % (19-41); Mean Corp Hgb Conc 33.7 g/dL (32-36); Mean Corpuscular Hgb 30.3 pg (27.0-32.0); Monocyte# 0.74 X10^3/uL; NRBC Flagged by Analyzer 0 % (0-5); Neutrophil # 8.69 X10^3/uL (2.7-7.7); Neutrophil % 70.7 % (47-70); Platelet Count 240 K/mm3 (150-450); Red Blood Count 4.59 M/mm3 (4.2-5.4); White Blood Count 12.3 K/mm3 (4.4-11.0)
[2025-02-26 20:19] LABS: ALB/GLOB Ratio 1.1 RATIO (0.9-2.4); AST(SGOT) 40 U/L (<=31); Alanine Aminotransfer ALT/SGPT 10 U/L (<=34); Albumin, Serum 4.2 g/dL (3.4-4.8); Alkaline Phosphatase 122 U/L (35-104); Anion Gap 15 (5-15); BUN 17 mg/dL (4-19); BUN/Creat Ratio 14.1 RATIO (10-20); Calcium,Total 9.8 mg/dL (7.6-11.0); Carbon Dioxide 20.2 mmol/L (21.0-32.0); Chloride 105 mmol/L (98-108); Cholesterol 179 mg/dL (<=200); EST Glomerular Filtration Rate 49 (>60); Globulin 3.8 g/dL (2.2-4.2); Glucose 126 mg/dL (70-99); High Density Lipoprotein 58 mg/dL; Low Density Lipoprotein Calc. 93 mg/dL; Potassium 4.6 mmol/L (3.3-5.1); Sodium Level 140 mmol/L (133-145); Triglycerides 138 mg/dL; Very Low Density Lipoprotein 28 mg/dL (5-40); cholesterol:hdl ratio screen 3.07
[2025-02-26 20:21] LABS: Vitamin B12 643 pg/mL (180-914); Vitamin D,25 Hydroxy 49.7 ng/mL (30-100)
== END | disposition home or self-care (01) ==
LOC: BFHLAB 12:57
PROVIDERS: PCP Family Medicine; Visit Provider Family Medicine
DX: E11.22 Type 2 diabetes mellitus with diabetic chronic kidney disease (principal); N18.31 Chronic kidney disease, stage 3a; R53.83 Other fatigue; E55.9 Vitamin D deficiency, unspecified; E53.8 Deficiency of other specified B group vitamins
CPT/HCPCS: 36415; 80053; 80061; 82306; 82607; 83036; 84439; 84443; 85025

== ENCOUNTER → 2025-02-27 | Outpatient (CLI) | payer MEDICARE, SELFPAY ==
[2025-02-27 11:38] LABS: Microalbumin,Random Urine < 12.0 mg/L (NO RANGE EST.); Microalbumin:Creatinine Ratio UNABLE TO CALCULATE mg/g CRE
== END | disposition home or self-care (01) ==
LOC: LABSPEC 09:45
PROVIDERS: PCP Family Medicine; Visit Provider Family Medicine
DX: E11.22 Type 2 diabetes mellitus with diabetic chronic kidney disease (principal); N18.31 Chronic kidney disease, stage 3a; R53.83 Other fatigue; E55.9 Vitamin D deficiency, unspecified; E53.8 Deficiency of other specified B group vitamins
CPT/HCPCS: 82043; 82570

== ENCOUNTER → 2025-04-23 | Outpatient (CLI) | payer MEDICARE, SELFPAY ==
[2025-04-23 16:08] LABS: Color, Urine Yellow (Yellow); Glucose, Dipstick Normal (Normal); Ketone-Dipstick Negative (Negative); Leukocyte Esterase-Dipstick 25 /ul (Negative); Nitrite-Dipstick Positive (Negative); Occult Blood-Urine Negative /ul (Negative); Protein-Dipstick Negative (Negative); Specific Gravity, Urine 1.015 (1.002-1.030); Urine Bilirubin Dipstick Negative (Negative); Urine Clarity Sl. Cloudy (Clear); Urine Urobilinogen Normal (Normal); Urine pH 6.5 (5.0 - 8.0)
== END | disposition home or self-care (01) ==
LOC: MTLAB 14:05
PROVIDERS: PCP Family Medicine; Referring Provider Family Medicine; Visit Provider Family Medicine
DX: R82.90 Unspecified abnormal findings in urine (principal)
CPT/HCPCS: 81002; 87077; 87086; 87088

== ENCOUNTER 2025-06-10 10:00 | Outpatient (RCR) | payer MEDICARE, SELFPAY ==
--- NOTE | 2025-03-24 09:54 | HP.PTEVAL_ITS ---
Patient's Visit Information Visit Information Visit Information: ELLE DUGAN is a 69 year old F referred to Physical Therapy by ROMAN NO with a diagnosis of L-spondylosis/physical deconditioning. Date of Evaluation: 03/24/25 Physical Therapist: MISYS Leggett Visit Plan Frequency: 2x /Week Duration: 2 Months Plan: 2X/ week for 8 weeks for stretching of B hip flexors, hamstrings, and piriformis and Pelvic tilt with all neutral spine core stability, postural exercises with HEP HEP: LTR, Pelvic Tilt, and bridges Subjective Subjective: Pt still having trouble with her asthma and thinks that it could be the weather/pollen etc. She is not sure how often she can take her rescue inhaler. She is still shaking and just took her PD meds. She started to have back pain. She has constant R sided back pain and then she will get it right across her back. The Tylenol helps a little bit if she takes 2 every 6 hours. She saw a spine Dr and they have done X-rays and MRI and 2 sets of shots. They shots did not help. They also did an ablation and that did not help more than a week. So now they said to do PT and get her back stronger. She is now in her recliner a lot now due to pain. She has a fear of stairs due to 2 falls. Pain Back pain: Pain Intensity (Out of 10): 6 Objective Objective: Gait: walks with decrease stance time on the L LE. Trunk AROM: Flexion 50%, Ext 50%, SB B 75%, Rot B 50% LE MMT: R hip flex 15.5 and L 15.6 R knee ext 15 and L 12.9 R knee flex 11.8 and L 6.5 Pt is able to heel and toe raise holding onto the hand rail with one hand Patellar DTR's 3+/3 Tight into LTR B...started with some pain and then it relaxed some Bridges X 10 with fair ROM Tight B hip flexors, tight B HS, tight B piriformis Balance/Special Test Scores Oswestry Low Back Score: 33 Goals Goal 1:: I HEP Goal Time Frame: 6-8 Weeks Goal 2:: Increase Trunk AROM pain free (at the time of the eval: Flexion 50%, Ext 50%, SB B 75%, Rot B 50%) Goal Time Frame: 6-8 Weeks Goal 3:: Decrease back pain by 50% with doing the dishes, making her bed Goal Time Frame: 6-8 Weeks Goal 4:: Increase hip flexor flexibility by the side of the mat table to be able to tolerate stretching and help with back pain Goal Time Frame: 6-8 Weeks Rehabilitation Potential Rehabilitation Potential: Good Anticipated Interventions Patient/Client Instruction: Educate patient on: Condition and Plan of Care For the Purpose of:: To decrease pain, To increase ROM, To improve nutrient delivery to tissue, To improve muscle performance and motor function, To improve ability to perform ADL's, To increase tolerance to activity/condition/position, To improve performance and independence with ADL's, To decrease level of supervision to perform tasks, To improve ability of physical actions for home/community/work/leisure, To improve health of tissue, To decrease soft tissue restriction, To increase flexibility/ROM, To improve endurance and To improve balance Therapeutic Exercise to Include: Strength training, Endurance training, Coordination, Body mechanics, Postural training, Flexibilty training, Gait and locomotor training, Neuromotor development, Passive ROM, Active ROM and Dynamic Lumbar Stabilization For the Purpose of:: To decrease pain, To increase ROM, To improve nutrient delivery to tissue, To increase oxygenation perfusion, To improve muscle performance and motor function, To improve ability to perform ADL's, To increase tolerance to activity/condition/position, To improve performance and independence with ADL's, To decrease level of supervision to perform tasks, To improve gait and locomotor functions, To improve health of tissue, To decrease soft tissue restriction, To increase flexibility/ROM, To improve endurance and To improve balance Functional Training to Include: Gait training For the Purpose of:: To improve gait and locomotor functions and To improve safety with gait Manual Therapy Techniques to Include: Passive ROM For the Purpose of:: To increase ROM and To improve nutrient delivery to tissue Thermo therapy (hot pack): Yes For the Purpose of:: To decrease pain, To increase ROM and To improve nutrient delivery to tissue Text: Thank you for the opportunity to evaluate your patient. For Medicare and Medicare HMO plans, please review the plan of care and approve it. It will need to be FAXED BACK to us at [phone] for Medicare purposes. For Medicare only, by signing this I certify the plan of care. Please let me know if there are questions or concerns regarding this plan of care. Physician Signature: Date:
--- NOTE | 2025-05-02 09:42 | HP.PTREVAL_ITS ---
Re-Evaluation Intro: ROMAN NO, It has been my pleasure to treat ELLE DUGAN over the last 10 visits for L- spondylosis/physical deconditioning. Please see the progress note below for an update on the physical therapy plan of care! Subjective Subjective: Pt is having trouble breathing today. Pt has been doing a roller at home on her back and that helps some. She can do the dishes for 15 -20 min now and then it hurts. Objective Objective/Function: Trunk AROM pain free (at the time of the eval: Flexion 75%, Ext 50%, SB B 75%, Rot B 65%) Hip flexor stretch has definitely improved in length Pain with doing dishes has improved 1 lap around dept 1 min 50 seconds with increase SOB and had a hard time breathe Plan Plan Plan: 3 more weeks and gear toward HEP at then end of the sessions for HEP. 2X/ week for 8 weeks for stretching of B hip flexors, hamstrings, and piriformis and Pelvic tilt with all neutral spine core stability, postural exercises with HEP HEP: LTR, Pelvic Tilt, and bridges Balance/Gait/Functional tests Balance/Special Test Scores Oswestry Low Back Score: 30 Goals Goals Goal 1:: I HEP Goal Time Frame: 6-8 Weeks Goal 2:: Increase Trunk AROM pain free (at the time of the eval: Flexion 50%, Ext 50%, SB B 75%, Rot B 50%) Goal Time Frame: 6-8 Weeks Goal Progress: Progressing Goal 3:: Decrease back pain by 50% with doing the dishes, making her bed Goal Time Frame: 6-8 Weeks Goal Progress: Progressing Goal 4:: Increase hip flexor flexibility by the side of the mat table to be able to tolerate stretching and help with back pain Goal Time Frame: 6-8 Weeks Goal Progress: Progressing Goal 5:: 1 lap around dept in under 1 min and 50 seconds with less SOB Anticipated Interventions Anticipated Interventions Patient/Client Instruction: Educate patient on: Condition and Plan of Care For the Purpose of:: To decrease pain, To increase ROM, To improve nutrient delivery to tissue, To improve muscle performance and motor function, To improve ability to perform ADL's, To increase tolerance to activity/condition/position, To improve performance and independence with ADL's, To decrease level of supervision to perform tasks, To improve ability of physical actions for home/community/work/leisure, To improve health of tissue, To decrease soft tissue restriction, To increase flexibility/ROM, To improve endurance and To improve balance Therapeutic Exercise to Include: Strength training, Endurance training, Coordination, Body mechanics, Postural training, Flexibilty training, Gait and locomotor training, Neuromotor development, Passive ROM, Active ROM and Dynamic Lumbar Stabilization For the Purpose of:: To decrease pain, To increase ROM, To improve nutrient delivery to tissue, To increase oxygenation perfusion, To improve muscle performance and motor function, To improve ability to perform ADL's, To increase tolerance to activity/condition/position, To improve performance and independence with ADL's, To decrease level of supervision to perform tasks, To improve gait and locomotor functions, To improve health of tissue, To decrease soft tissue restriction, To increase flexibility/ROM, To improve endurance and To improve balance Functional Training to Include: Gait training For the Purpose of:: To improve gait and locomotor functions and To improve safety with gait Manual Therapy Techniques to Include: Passive ROM For the Purpose of:: To increase ROM and To improve nutrient delivery to tissue Thermo therapy (hot pack): Yes For the Purpose of:: To decrease pain, To increase ROM and To improve nutrient delivery to tissue Re-Evaluation Ending Re-evaluation ending: Please do not hesitate to contact me at [phone] by phone or if you have questions or concerns regarding this new plan of care! Sincerely, MISSY Leggett
--- NOTE | 2025-06-10 11:01 | HP.PTDCSUM ---
Discharge Summary D/C summary: It has been my pleasure to treat ELLE DUGAN referred by ROMAN NO, with the diagnosis of L-spondylosis/physical deconditioning for a total of 16 visit(s). Discharge Date: 06/10/25 Please see the following information for a summary of their discharge status. Subjective Subjective: No back pain today. Doing dishes still kills her to do them. Memory is a big issue. She had her neuro appt last week and they are trying propranolol and inderal. Pt reports that her FM and PD is getting worse. Pain Back pain: Pain Intensity (Out of 10): 7 Overall Improvement % Improvement: 25 Objective Objective/Function: 1 lap around dept in 1 min and 56 minutes with increase SOB at the end and almost had to stop and rest. Trunk AROM: Flexion 75%, Ext 50%, SB B 75%, Rot B 50% Goals Goal 1:: I HEP Goal Progress: Goal Met Goal 2:: Increase Trunk AROM pain free (at the time of the eval: Flexion 50%, Ext 50%, SB B 75%, Rot B 50%) Goal Progress: Progressing Goal 3:: Decrease back pain by 50% with doing the dishes, making her bed Goal Progress: Progressing Goal 4:: Increase hip flexor flexibility by the side of the mat table to be able to tolerate stretching and help with back pain Goal Progress: Progressing Goal 5:: 1 lap around dept in under 1 min and 50 seconds with less SOB Goal Progress: Not Progressing Plan Plan: As far as the patients back is concerned, she is better, standing doing an activity with dishes is still an issue but instructed pt in doing a few at at time and then resting etc. D/C Information Discharge Comments: DC PT to HEP for her back exercises d/c sentence: If there are questions or concerns regarding this patient's physical therapy, please feel free to call me at [phone]. Thank you for the referral of this patient. Sincerely, Ceyc Suggs, MPT Balance/Gait/Functional tests Balance/Special Test Scores Oswestry Low Back Score: 33 Improvement % Improvement: 25
== END 2025-06-10 19:00 | disposition home or self-care (01) ==
LOC: PT 10:00
PROVIDERS: PCP Family Medicine
DX: M47.816 Spondylosis without myelopathy or radiculopathy, lumbar region (principal); R53.81 Other malaise
CPT/HCPCS: 97110; 97161